=== PATIENT | male | born 1950 | race Caucasian/White ===

== ENCOUNTER 2017-05-19 22:37 | Inpatient (IN) | payer MEDICARE ==
[~2017-05-19] VITALS: Ht 177.8 cm; Wt 147.9 kg
[~2017-05-19 22:37] MED LIST: ACETAMINOPHEN325 M1 PO; AMBIEN 10 MG TA10 MG PO; AMBIEN 5 MG TABL5 M1 PO; ATROVENT HFA14 GM INH; AUGMENTIN 875-1 EACH PO; COUMADIN 3 MG TA3 M1 PO; COUMADIN 4 MG TA4 M1 PO; COUMADIN 5 MG TA5 M1 PO; DESYREL50 MG PO; DETROL LA4 MG PO; DOXYCYCLINE 10100 MG PO; DUONEB 2.5-0.5 M3 ML; FINASTERIDE5 MG PO; FLOMAX0.4 MG PO; GLUCAGEN1 MG IM; GLUCOPHAGE500 MG PO; GLUTOSE GEL 1515 G1 PO; HYDROXYZINE HCL25 M1 PO; KEFLEX500 MG PO; LASIX 20 MG TAB20 MG PO; LASIX 40 MG TAB40 M2 PO; LEVALBUTER1.25 MG/0. INH; LEVAQUIN 750 M750 MG PO; LIPITOR40 MG PO; LISINOPRIL40 MG PO; LOPRESSOR 50 MG50 M1 PO; LOPRESSOR25 PO; MORPHINE PO; MORPHINE SULFAT60 MG PO; MS CONTIN15 MG PO; MUCINEX TA600 MG/TA1 PO; MUCINEX TA600 MG/TA2 PO; OXYCODONE HCL10 MG PO; OXYCODONE HCL5 M1 PO; PACERONE 200 M200 MG PO; PERCOCET PO; PREDNISONE 10 M10 M1 PO; PREDNISONE 10 M10 MG PO; PREDNISONE 20 M20 MG; PRILOSEC 20 MG20 MG PO; PRINIVIL20 MG PO; SERTRALINE HCL100 MG PO; SIMVASTATIN20 MG PO; TAMSULOSIN HCL PO; TAMSULOSIN HCL0.4 M1 PO; TRAZODONE HCL100 MG PO; TROSPIUM CHLORI20 MG PO; VENTOLIN HFA 1818 GM INH; VENTOLIN HFA INH8 GM; XANAX 0.25 MG0.25 MG PO
[2017-05-19 22:40] VITALS: BP 100/37
[2017-05-19] MEDS ORDERED: IRON325 M1 (23:18)
[2017-05-19] MEDS ORDERED: COUMADIN 4 MG TA4 M1 PO (23:19)
[2017-05-19] MEDS ORDERED: COUMADIN 3 MG TA3 M1 PO (23:19)
[2017-05-19] MEDS ORDERED: COUMADIN 5 MG TA5 M1 PO (23:19)
[2017-05-19 23:35] LABS: HCO3 18.5 mmol/L (22.0-26.0); PO2 122.4 mmHg (75.0-100.0)
[2017-05-19 23:37] LABS: ABSOLUTE EOSINOPHILS 0.1 thou/uL (0.0-0.7); ABSOLUTE MONOCYTES 0.4 thou/uL (0.0-1.2); ABSOLUTE NEUTROPHILS 5.6 thou/uL (1.6-8.1); BASOPHILS 0.3 %; EOSINOPHILS 1.3 %; HEMATOCRIT 25.7 % (42.0-52.0); HEMOGLOBIN 8.2 gm/dL (14.0-18.0); LYMPHOCYTES 14.2 %; MCV 84.4 fL (80.0-100.0); MONOCYTES 5.1 %; MPV 7.4 fl. (7.2-11.1); NUCLEATED RBCS 0 /100WBC; PLATELET COUNT* 171 thou/uL (150-400); POLYS 79.1 %; RBC 3.04 mil/uL (4.50-6.00); RDW-CV 17.4 % (10.5-14.5); WBC 7.1 thou/uL (4.0-11.0)
[2017-05-19 23:42] LABS: pH 7.151 (7.340-7.450)
[2017-05-19 23:43] LABS: PCO2 54.1 mmHg (35.0-45.0)
[2017-05-20] VITALS (12 sets, daily range): BP systolic 93–133; BP diastolic 38–62
[2017-05-20 00:04] LABS: ANION GAP 7 mmol/L (7-16); BUN 118 mg/dL (7-18); CALCIUM 8.5 mg/dL (8.5-10.1); CHLORIDE 104 mmol/L (98-107); CO2 24 mmol/L (21-32); CREATININE 4.2 mg/dL (0.6-1.3); GLUCOSE 146 mg/dL (70-99); SODIUM 135 mmol/L (136-145)
[2017-05-20 00:05] LABS: PROTIME 19.2 Seconds (9.20-11.50)
[2017-05-20 00:11] LABS: POTASSIUM 7.5 mmol/L (3.5-5.1)
[2017-05-20 00:15] LABS: ALBUMIN 3.1 g/dL (3.4-5.0); ALKALINE PHOSPHATASE 71 U/L (46-116); LIPASE 127 U/L (73-393); NT-PRO BRAIN NAT PEPTIDE 1260 pg/mL (<300); SGOT 16 U/L (15-37); SGPT 16 U/L (30-65); TOTAL BILIRUBIN 0.1 mg/dL (<0.1-1.0); TOTAL PROTEIN 8.1 g/dL (6.4-8.2); TROPONIN-I LEVEL <0.06 ng/mL (<0.06)
[2017-05-20 01:14] LABS: URINE BILIRUBIN NEGATIVE (Negative); URINE BLOOD NEGATIVE (Negative); URINE CLARITY CLEAR; URINE COLOR YELLOW; URINE GLUCOSE-RANDOM NEGATIVE (Negative); URINE KETONES NEGATIVE (Negative); URINE LEUKOCYTES-REFLEX NEGATIVE (Negative); URINE NITRITE-REFLEX NEGATIVE (Negative); URINE PROTEIN NEGATIVE (Negative); URINE SPECIFIC GRAVITY 1.025 (1.005-1.030); URINE UROBILINOGEN 0.2 E.U./dl (0.2-1.0)
[2017-05-20 01:16] LABS: INFLUENZA A ANTIGEN None Detected (None Detect); INFLUENZA B ANTIGEN None Detected (None Detect)
[2017-05-20 07:55] LABS: ABSOLUTE LYMPHOCYTES 0.9 thou/uL (0.8-5.3); ABSOLUTE MONOCYTES 0.4 thou/uL (0.0-1.2); ABSOLUTE NEUTROPHILS 5.3 thou/uL (1.6-8.1); BASOPHILS 0.3 %; EOSINOPHILS 0.4 %; HEMATOCRIT 24.4 % (42.0-52.0); HEMOGLOBIN 7.8 gm/dL (14.0-18.0); LYMPHOCYTES 13.9 %; MCH 26.4 pg (26.0-34.0); MCHC 32.1 g/dL (28.0-37.0); MCV 82.2 fL (80.0-100.0); MONOCYTES 5.3 %; MPV 7.2 fl. (7.2-11.1); NUCLEATED RBCS 0 /100WBC; PLATELET COUNT* 163 thou/uL (150-400); POLYS 80.1 %; RBC 2.96 mil/uL (4.50-6.00); RDW-CV 17.2 % (10.5-14.5); WBC 6.6 thou/uL (4.0-11.0)
[2017-05-20 08:19] LABS: CREATININE 4.1 mg/dL (0.6-1.3); TOTAL BILIRUBIN 0.1 mg/dL (<0.1-1.0); TOTAL PROTEIN 7.1 g/dL (6.4-8.2)
[2017-05-20 08:42] LABS: POTASSIUM 6.2 mmol/L (3.5-5.1)
--- NOTE | 2017-05-20 11:24 | NUR ---
WOUND CARE NOTE: CONSULT RECEIVED FOR PRESSURE ULCER TO COCCYX. PATIENT PRESENTS WITH A STAGE 3 TO HIS SACROCOCCYGEAL REGION, ON THE RIGHT SIDE. WOUND MEASURES 4X2X0.3. MOIST, PINK WOUND BED TO APPROXIMATELY 80% OF THE WOUND 20% YELLOW, MOIST, ADHERENT SLOUGH. GURMEET-WOUND IS MACERATED. WOUND WAS CLEANSED WITH WOUND CLEANSER, PATTED DRY. APPLIED OPTIFOAM AG. PATIENT TOLERATED DRESSING CHANGE, BUT HAD A LOT OF PAIN ' ALL OVER'. ATTEMPTED TO EDUCATED PATIENT ON OFFLOADING AND NUTRITION, BUT WAS HAVING TOO MUCH PAIN IN HIS FEET/LEGS. WILL NEED REINFORCEMENT. RECOMMEND LIMIT HOB <30 DEGREES. TURN Q2 HOURS-KEEP OFF WOUND ENCOURAGE GOOD NUTRITION AND HYDRATION FOLLOW UP IN THE WOUND CENTER.
[2017-05-20 15:18] LABS: CALCIUM 7.7 mg/dL (8.5-10.1); CREATININE 3.1 mg/dL (0.6-1.3); POTASSIUM 5.4 mmol/L (3.5-5.1)
--- NOTE | 2017-05-20 17:36 | NUR ---
ASSUMED CARE OF PT AROUND 0710 THIS AM. REFER TO ASSESSMENTS. PT SOMEWHAT PROGRESSING TOWARDS GOALS THIS SHIFT. ID CONSULTED THIS SHIFT. HEMODYNAMIC STABILITY MONITORED. PT STARTED ON HOME MEDICATIONS FOR CHRONIC BACK PAIN THIS SHIFT. PT STARTED ON DOSES LOWER THAN HOME DOSE D/T DROWSINESS AND CONFUSION THIS AM. TELE SR. PT HAD RENAL US AND CHEST CT THIS SHIFT. REFER TO RESULTS. NO OTHER CONCERNS AT THIS TIME. CLWR. WCTM.
[2017-05-20 22:41] LABS: SMEAR FOR EOSINOPHILS No Eosinophils Seen
[2017-05-21] VITALS (8 sets, daily range): BP systolic 113–164; BP diastolic 38–86
--- NOTE | 2017-05-21 00:41 | NUR ---
REPORT GIVEN TO VIVIANA JACOBO. QUESTIONS DENIED.
[2017-05-21 02:07] LABS: IgA 385 mg/dL (61-437); IgG 1212 mg/dL (700-1600); IgM 80 mg/dL (20-172)
--- NOTE | 2017-05-21 02:58 | NUR ---
REPORT RECEIVED FROM VIVIANA JACOBO. ASSUMED CARE AT 0130. PATIENT TRANSFERRED TO ROOM 227 FROM ICU. ASSESSMENT COMPLETED. MEDS GIVEN PER MAR. ORIENTED TO ROOM, CALL LIGHT, STAFF, AND BED CONTROLS. TURNED AND REPOSITIONED IN BED WITH WEDGES. BED ALARM ON. WILL MONITOR.
--- NOTE | 2017-05-21 06:54 | NUR ---
ATTEMPTED TO CALL TO NOTIFY OF TRANSFER, NO ANSWER. WILL PASS ON TO DAY, RN.
--- NOTE | 2017-05-21 08:05 | CON ---
[address] [address] CONSULTATION Name: DOMINIQUE WEISS Room: [address] IN .R.#: [id number] Admission: 05/20/17 Attend Phys: Amy Kerr Discharge: Date of : 48 Report #: [id number] THIS REPORT FOR: //name// CC: Octavio Estrada DATE OF SERVICE: 05/20/2017 INFECTIOUS DISEASE CONSULTATION ATTENDING PHYSICIAN: Teodoro Estrada DO REASON FOR EVALUATION: Pneumonitis, complicated by respiratory and renal failure. HISTORY OF PRESENT ILLNESS: Chart reviewed, the patient examined. This is a 66-year-old known history of COPD who I saw roughly 11 months ago, was admitted through the Emergency Room with complaints of progressive shortness of breath, dating back a few days prior, had weakness, it again is progressive as well, poor appetite with cough, has not had fever, had 1 episode of diarrhea. It is notable he is typically on the oxygen supplement at home at 3 liters. He is maintained saturation on that same level here. ABG showed a pH of 7.151, pCO2 of 54.1 and pO2 of 122.4 on 4 liters. Lactic acid was 0.8. CT of the chest showed right pleural effusion, large area of consolidation in the right middle and lower lobes. He has been afebrile. He was started empirically on piperacillin and tazobactam. ALLERGIES: None known. MEDICINES: Include atorvastatin, trazodone, warfarin, amiodarone, finasteride, sertraline, pantoprazole, Zosyn. PAST MEDICAL AND SURGICAL HISTORY: Hypertension, high cholesterol, depression, atrial fibrillation, COPD, several orthopedic surgeries. SOCIAL HISTORY: Nonsmoker, no ethanol. FAMILY HISTORY: Noncontributory. REVIEW OF SYSTEMS: As above. PHYSICAL EXAMINATION: GENERAL: He appears chronically ill with acute component moderate distress. He is undernourished. VITAL SIGNS: Temperature 98.4, pulse 89, respirations 13, blood pressure 133/53[place] [address] CONSULTATION Name: DOMINIQUE WEISS Room: [address] IN [facility]#: [id number] Admission: 05/20/17 Attend Phys: Amy Kerr Discharge: Date of : 48 Report #: [id number] SKIN: Warm, dry, no rashes. HEENT: Otherwise, unremarkable. NECK: Supple. LUNGS: Scattered coarse breath sounds. HEART: Regular. He does have systolic murmur. ABDOMEN: Soft, mildly distended. There are no peritoneal signs. GENITOURINARY: Deferred. RECTAL: Deferred. LABORATORY DATA: CT chest as described above. Electrolytes: Sodium 142, potassium 5.4, chloride 107, bicarbonate 25, anion gap of 10, BUN and creatinine 100 and 3.1, glucose of 145. Estimated GFR of 20. Lactic acid bump to 3.3, but repeat was 0.8. Liver function tests otherwise unremarkable. Albumin 3, total protein 7.1, estimated GFR of 15. CBC: White count of 6.6, H and H 7.8 and 24.4, platelets of 163. Influenza antigen was not detected for A or B. Urinalysis unremarkable. ASSESSMENT: Right-sided pneumonitis. The patient certainly has compromise underlying chronic obstructive pulmonary disease. We will continue broad spectrum therapy adjusted for his renal insufficiency. We will await pending results to try to obtain sputum if possible, check some urinary antigen. <ELECTRONICALLY SIGNED> By: Nicola Mosley MD 05/21/17 0805 [id number] [id number] Mosley MD /nt
[2017-05-21 08:25] LABS: ABSOLUTE EOSINOPHILS 0.1 thou/uL (0.0-0.7); ABSOLUTE LYMPHOCYTES 1.3 thou/uL (0.8-5.3); ABSOLUTE MONOCYTES 0.4 thou/uL (0.0-1.2); ABSOLUTE NEUTROPHILS 2.6 thou/uL (1.6-8.1); EOSINOPHILS 1.7 %; HEMATOCRIT 21.8 % (42.0-52.0); HEMOGLOBIN 7.2 gm/dL (14.0-18.0); LYMPHOCYTES 29.8 %; MCH 26.7 pg (26.0-34.0); MPV 7.1 fl. (7.2-11.1); NUCLEATED RBCS 0 /100WBC; PLATELET COUNT* 140 thou/uL (150-400); POLYS 58.5 %; RBC 2.69 mil/uL (4.50-6.00); RDW-CV 17.1 % (10.5-14.5); WBC 4.4 thou/uL (4.0-11.0)
[2017-05-21 08:31] LABS: CALCIUM 7.9 mg/dL (8.5-10.1); MAGNESIUM 1.6 mg/dL (1.8-2.4); POTASSIUM 4.4 mmol/L (3.5-5.1)
[2017-05-21 08:32] LABS: CREATININE 1.9 mg/dL (0.6-1.3)
[2017-05-21 08:36] LABS: INR 2.7; PROTIME 25.9 Seconds (9.20-11.50)
--- NOTE | 2017-05-21 11:00 | CON ---
[address] [address] CONSULTATION Name: DOMINIQUE WEISS Room: [address] IN .R.#: [id number] Admission: 05/20/17 Attend Phys: Amy Kerr Discharge: Date of : 48 Report #: [id number] THIS REPORT FOR: //name// CC: Octavio Estrada The patient is in ICU bed 6. I am asked to see this 66-year-old gentleman at the request of Dr. Estrada for acute kidney injury. CHIEF COMPLAINT: Confusion. HISTORY OF PRESENT ILLNESS: This is a 66-year-old gentleman who has had respiratory symptoms for a week or so. He said he saw Dr. Casanova in the office about a week ago and his meds were changed. Despite that, he has worsened over the last week and has become more short of air. He presented early this a.m. with worsening lethargy, confusion, weakness and shortness of air. He has a history of staph pneumonia in the past, he says he has had multiple shots to prevent the flu, he has had muscle spasms, he has had low back pain, which he rates at 7/10. He does not recall all the meds that he has been on over the past week, but states he has been on some. He was found to be acidotic and in acute renal failure and was admitted to the intensive care unit with his respiratory symptoms and metabolic picture. PAST MEDICAL HISTORY: Atrial fib with rapid ventricular response. He has had episodic CHF. 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 He has had acute kidney injury in the past, I believe back in June of last year and recovered from that. He has had a fracture of his right leg with hugh and screws placed in 1998. He has had episodic blood transfusions as needed through the years. He has had COPD, obesity, and BPH. His baseline renal function has been in the mid ones. FAMILY HISTORY: Positive for coronary artery disease, not renal disease. SOCIAL HISTORY: , history of tobacco in the past, he quit about a year ago. No alcohol or recreational drugs. ALLERGIES: No known drug allergies. MEDICATIONS: His chronic medications have been albuterol 1 puff q.4, tamsulosin 0.4 mg daily, ferrous sulfate 325 mg daily, warfarin 3 mg daily, alternating with 5 mg, but this is per directives he takes either 3, 4, or 5 depending on what he is told to take; he is on amiodarone 200 mg daily, atorvastatin 40 mg daily, metoprolol 25 mg b.i.d., lisinopril 20 mg daily, oxycodone/acetaminophen 5/325 two daily, MS Contin 30 mg t.i.d., acetaminophen 325 mg tablets 2 q.4 [place] [address] CONSULTATION Name: DOMINIQUE WEISS Room: [address] IN ..#: [id number] Admission: 05/20/17 Attend Phys: Amy Kerr Discharge: Date of : 48 Report #: [id number] p.r.n., sertraline 100 mg daily, trazodone 100 mg daily, hydroxyzine 25 mg b.i.d. for anxiety, zolpidem 5 mg at bedtime, furosemide 40 mg b.i.d., and trospium 20 mg b.i.d. REVIEW OF SYSTEMS: HEENT: No recent changes in vision or hearing. CARDIAC: Atrial fib with episodic elevated ventricular response. PULMONARY: Shortness of air, this is dated back a week. GASTROINTESTINAL: Chronic constipation. No nausea, vomiting, or diarrhea at present. GENITOURINARY: Acute kidney injury. He has had this in the past as well in June. HEMATOLOGIC AND LYMPHATIC: No malignancy. He is anemic. MUSCULOSKELETAL: Weakness. ENDOCRINE: Not known to be diabetic. No hypothyroidism. PSYCHIATRIC: Depression. NEUROLOGIC: History of meningitis in the past with some hearing deficits and some weakness following this, this was as a child. No Parkinson's disease, seizure disorder, CVA or TIA. Other 14-point review of systems as above. PHYSICAL EXAMINATION: GENERAL: He does awaken easily, he is a bit confused still. VITAL SIGNS: Temperature is 37, heart rate is 76, respirations 18, blood pressure 114/44, and O2 sat 96% on room air. HEENT: Atraumatic, normocephalic. His pupils do react. NECK: Supple. CHEST: Shows crackles, worse on the right than the left. He also has some expiratory wheezes. HEART: Shows S1, S2, no rubs. ABDOMEN: Soft, positive bowel sounds. No masses. EXTREMITIES: Show no edema. Negative Homans', 2+ femoral pulses, distal extremities perfused. NEUROLOGIC: Cranial nerves, sensory, and motor all appear to be at baseline, but he is confused. LABORATORY DATA: At present shows a white count of 6600, hemoglobin 7.8, hematocrit 24.4, and platelets 163,000. PT 19.2 and INR 2. Urine is negative for protein, ketones, blood, nitrites, and bilirubin. Blood gas showed a pH of 7.15, pCO2 of 54, and pO2 122. Chemistry show a sodium of 140, potassium 6.2, chloride 105, CO2 of 21, BUN 118, potassium 4.1, and calcium 8. Liver functions not increased, albumin 3. His potassium started at 7.5. IMAGING STUDIES: Include a chest x-ray that showed increasing right lobe [place]elect[place] [address] CONSULTATION Name: DOMINIQUE WEISS Room: [address] IN [facility]#: [id number] Admission: 05/20/17 Attend Phys: Amy Kerr Discharge: Date of : 48 Report #: [id number] IMPRESSION: 1. Acute kidney injury in the setting of a right lower lobe pneumonia, possible sepsis and hypotension. 2. Right lower lobe infiltrate and pneumonia. 3. Hypotension, possible sepsis. 4. Metabolic and respiratory acidosis. 5. Acute on chronic hypercapnic hypoxic respiratory failure. 6. Hyperkalemia in the setting of acidosis and acute kidney injury. 7. Effective circulating volume depletion. 8. Chronic pain and opiate use. 9. Toxic encephalopathy. 10. Anemia. 11. History of atrial fibrillation, on anticoagulation. 12. History of spinal meningitis as a child. 13. Chronic obstructive pulmonary disease. PLAN: Continue fluid resuscitation. Treat potassiums. We will check lab again this afternoon. I am hopeful he can avoid dialysis. We will need evaluation of his anemia as he improves. Further recommendations to follow. We will also check serum protein electrophoresis, immunoelectrophoresis, and urine for eosinophils. He will likewise require a bedside renal sonogram. Orders are written. <ELECTRONICALLY SIGNED> By: Sylvia Lora MD 05/21/17 1100 1221 [id number] Lora MD /nt
--- NOTE | 2017-05-21 13:45 | 2DMMODE ---
[place] [address] 2 D/M-MODE ECHOCARDIOGRAM Name: DOMINIQUE WEISS Room: [facility]1 ADM IN [facility]#: [id number] Admission: 05/20/17 Attend Phys: Teodoro Estrada Discharge: Date of : 48 Date of Service: 05/21/17 1344 Report #: [id number] THIS REPORT FOR: //name// APPROVED REPORT Study performed: 05/21/2017 10:49:24 EXAM: Comprehensive 2D, Doppler, and color-flow Echocardiogram Patient Location: In-Patient Room #: [facility] Status: routine BSA: 2.47 HR: 83 bpm BP: 119/49 mmHg Rhythm: NSR Other Information Technically limited study due to body habitus, inability to position patient. Indications Dyspnea Echo Enhancing Agent Indication: Endocardial border delineation Agent(s) / Amount(s) Used: Optison 3 cc 2D Dimensions LVEF(%): 49.91 (>50%) IVSd: 12.21 (7-11mm) LVOT Diam: 22.59 (18-24mm) LVDd: 50.19 mm PWd: 10.83 (7-11mm) Ascending Ao: 34.59 (22-36mm) LVDs: 37.43 (25-40mm) Aortic Root: 35.75 mm Campbell's LVEF: 49.91 % Aortic Valve AoV Peak Moises.: 2.66 m/s AO Peak Gr.: 28.40 mmHg LVOT Max P.62 mmHg AO Mean Gr.: 15.68 mmHg LVOT Mean P.41 mmHg LVOT Max V: 0.81 m/s AO V2 VTI: 57.86 cm LVOT Mean V: 0.55 m/s ROYAL (VTI): 1.20 cm2 LVOT V1 VTI: 17.32 [place] [address] 2 D/M-MODE ECHOCARDIOGRAM Name: DOMINIQUE WEISS Room: [address] IN [facility].#: [id number] Admission: 05/20/17 Attend Phys: Teodoro Estrada Discharge: Date of : 48 Date of Service: 05/21/17 1344 Report #: [id number] PV Peak Moises.: 1.12 m/s PV Peak Gr.: 5.06 mmHg Left Ventricle The left ventricle is normal size. There is normal LV segmental wall motion. There is normal left ventricular wall thickness. Left ventricular systolic function is normal. The left ventricular ejection fraction is within the normal range. LVEF is 55-60%. The left ventricular diastolic function is normal. Right Ventricle The right ventricle is normal size. The right ventricular systolic function is normal. Atria The left atrium size is normal. The right atrium size is normal. Aortic Valve Mild aortic valve sclerosis. No aortic regurgitation is present. No hemodynamically significant valvular aortic stenosis. Mitral Valve Mild mitral annular calcification. There is no mitral valve regurgitation noted. No evidence of mitral valve stenosis. Tricuspid Valve The tricuspid valve is normal in structure. Unable to assess PA pressure. Trace tricuspid regurgitation. Pulmonic Valve The pulmonary valve is normal in structure. There is no pulmonic valvular regurgitation. Great Vessels The aortic root is normal in size. IVC is normal in size and collapses with >50% inspiration Pericardium There is no pericardial effusion. <Conclusion> The left ventricle is normal size. There is normal left ventricular wall thickness. Left ventricular systolic function is normal. The left ventricular ejection fraction is within [place] [address] 2 D/M-MODE ECHOCARDIOGRAM Name: DOMINIQUE WEISS Room: [address] IN [facility]#: [id number] Admission: 05/20/17 Attend Phys: Teodoro Estrada Discharge: Date of : 48 Date of Service: 05/21/17 1344 Report #: [id number] LVEF is 55-60%. The right ventricle is normal size. The left atrium size is normal. Mild aortic valve sclerosis. No aortic regurgitation is present. No hemodynamically significant valvular aortic stenosis. Mild mitral annular calcification. There is no mitral valve regurgitation noted. There is no mitral valve regurgitation noted. No evidence of mitral valve stenosis. The tricuspid valve is normal in structure. IVC is normal in size and collapses with >50% inspiration There is no pericardial effusion. There is normal LV segmental wall motion. <ELECTRONICALLY SIGNED> By: Luis Ellis MD, FACC 05/21/17 1344 1344 1344 Luis Ellis MD, FACC /INF
--- NOTE | 2017-05-21 14:05 | EKG ---
[place] [address] ELECTROCARDIOGRAM REPORT Name: DOMINIQUE WEISS Room: [place] [address] ADM IN .R.#: [id number] Admission: 05/20/17 Attend Phys: Amy Kerr Discharge: Date of : 48 Report #: [id number] THIS REPORT FOR: //name// [facility] ED Test Date: 2017-05-19 Test Time: 23:15:38 Pat Name: DOMINIQUE WEISS Department: Room: [facility] Gender: Technical Photographer: JODEE Oakley : 1950 Requested By: Kobe Koroma Order Number: [id number] MD: Luis Ellis Measurements Intervals [place] Rate: 70 P: NC: QRS: -36 QRSD: 127 T: 26 QT: 431 QTc: 466 Interpretive Statements Atrial fibrillation Baseline wander in lead(s) II,III,aVF possible inferior scar Electronically Signed On 05-21-2017 14:05:11 LINE UP WORKER by Luis Ellis [email or web address] <ELECTRONICALLY SIGNED> By: Luis Ellis MD, [facility] 05/21/17 1405 [id number] Luis Ellis MD, FACC /EPI
--- NOTE | 2017-05-21 14:07 | NUR ---
CM SPOKE TO THE PATIENT TO DISCUSS HOME SITUATION, DISCHARGE PLANNING, AND TO INFORM OF THE ROLE OF CM. PATIENT ALERT, ORIENTED, AND INDEPENDENT WITH ADL'S. PATIENT RESIDES AT HOME WITH , DTR, AND GRANDDAUGHTER. PATIENT USES A TRILOGY AT HOME. PATIENT ALSO USES A WALKER OR CANE FOR MOBILITY. PATIENT HAS A HX OF HH, BUT COULD NOT RECALL THE NAME. PATIENT HAS NO HX OF SNF. PATIENT PLANS TO RETURN HOME AT DISCHARGE. CM WILL REMAIN AVAILABLE TO ASSIST AND FOLLOW NEEDED.
[2017-05-21 14:36] LABS: INR 2.5; PROTIME 24.4 Seconds (9.20-11.50)
[2017-05-21 16:31] LABS: INR 2.6
--- NOTE | 2017-05-21 19:33 | NUR ---
PT PARTIALLY PROGRESSING TOWARDS GOALS. UP IN THE RECLINER THIS AFTERNOON. POOR APPETITE THIS SHIFT. TRANSFERS WITH ASSIST X1. LARGE BOWEL MOVEMENT THIS SHIFT. PLANNING FOR US GUIDED THORACENTESIS TOMORROW IF INR DECREASES. PLANS FOR FFP AND INR DRAWS OVERNIGHT UNTIL INR <1.5. PATIENT UP TO DATE WITH PLAN OF CARE. DISCUSSED PLAN OF CARE WITH PATIENTS DAUGHTER N LAW WELL. CONTINUES TO WEAR O2 AT 3L NC AND BIPAP HS. CALL LIGHT WITHIN REACH. HOURLY ROUNDING CHARTED. CALL LIGHT WITHIN REACH. WILL CONTINUE TO MONITOR.
[2017-05-22] VITALS (9 sets, daily range): BP systolic 157–190; BP diastolic 52–82
[2017-05-22 01:14] LABS: INR 2.3; PROTIME 22.1 Seconds (9.20-11.50)
--- NOTE | 2017-05-22 04:54 | NUR ---
ASSUMED CARE AT 2030, REPORT RECEIVED FROM VIVIANA NIXON. PATIENT ALERT/ORIENTED X4, SITTING UP IN RECLINER. UP WITH ASSIST. VOIDING PER URINAL. STATES HAVING PAIN ALL OVER, SCHEDULED MEDS PER MAR. DENIES NEEDS. ASSISTED BACK TO BED, REPOSITIONED Q2H WITH WEDGES. REFUSING SCD'S. BED ALARM ON. CALL LIGHT WITHIN REACH, ENCOURAGED TO CALL FOR NEEDS. 2315: UNIT ONE OF FFP STARTED PER ORDERS. SEE CHARTING INTERVENTION FOR DETAILS. 0000: PATIENT STATES BEING ANXIOUS AT THIS TIME AND STATES THAT HIS LEGS ARE RESTLESS. DR. QUEZADA NOTIFIED, ORDERS RECEIVED FOR BENADRYL. IV BENADRYL GIVEN PER MAR WITH RELIEF NOTED. 0100: PATIENT RESTING QUIETLY AT THIS TIME. DENIES NEEDS.
[2017-05-22 05:08] LABS: HEMATOCRIT 21.1 % (42.0-52.0); MCH 26.6 pg (26.0-34.0); MCHC 32.9 g/dL (28.0-37.0); MCV 80.8 fL (80.0-100.0); RBC 2.62 mil/uL (4.50-6.00); WBC 4.5 thou/uL (4.0-11.0)
[2017-05-22 05:11] LABS: INR 1.9; PROTIME 17.9 Seconds (9.20-11.50)
[2017-05-22 05:17] LABS: CALCIUM 8.7 mg/dL (8.5-10.1); CREATININE 1.4 mg/dL (0.6-1.3); MAGNESIUM 1.4 mg/dL (1.8-2.4); POTASSIUM 3.7 mmol/L (3.5-5.1)
--- NOTE | 2017-05-22 07:57 | NUR ---
CALLED LAB, STATES NEXT UNIT OF FFP NOT READY BUT STATES WILL CALL THE FLOOR WHEN IT IS. BEDIDE REPORT GIVEN TO ONCOMING NURSE.
[2017-05-22 10:43] LABS: INR 1.5; PROTIME 14.5 Seconds (9.20-11.50)
--- NOTE | 2017-05-22 12:34 | NUR ---
RECEIVED PT CARE 0700. PT IS ALERT AND ORIENTED X4. VSS. LOADING MACHINE TOOL SETTER TRACING SR. PT UP IN THE RECLINER THIS AM WITH ASSIST X1. O2 AT 3L NC. O2 SAT 98% ON 3L NC. SHORT OF BREATH WITH ANY EXERTION. AM ASSESSMENT CHARTED. MEDS PER JUL. UP TO BEDSIDE COMMODE FOR LARGE BOWEL MOVEMENT THIS AM. INR AT GOAL FOR US THORACENTESIS TO BE DONE TODAY. FFP WAS SUCCESSFUL. NOTIFIED DR WRIGHT AND DISCUSSED THE PLAN OF CARE. PATIENT CURRENTLY UP IN HIS RECLINER. PLAN TO TRANSFUSE 1 UNIT RBC'S.
--- NOTE | 2017-05-22 16:50 | NUR ---
DISCUSSED PLAN WITH DR WRIGHT. IR PHYSICIAN RECOMMENDING SURGERY PLACE CHEST TUBE. NEW SURGERY CONSULT ORDERS RECEIVED PER DR THOMAS. THIS RN DISCUSSED WITH THE SURGERY RESIDENT THE PATIENT CONCERNS AND THEIR REASON FOR BEING CONSULTED. NO NEW ORDERS PER SURGERY AT THAT TIME. PULMONARY CONSULTED AND THIS RN DISCUSSED THE PLAN OF CARE WITH DR MCKNIGHT. PULM RECOMMENDING THE PATIENT NEEDS THORACENTESIS OR CHEST TUBE AT THIS TIME BUT DID NOT CLARIFY WHICH PROCEDURE WAS OF MORE IMPORTANCE. PULMONARY STATED THIS RN NEEDED TO SPEAK WITH SURGERY AND HAVE THEM TALK TO INTERVENTIONAL RADIOLOGY ABOUT WHO WAS GOING TO DO WHAT PROCEDURE. THIS RN REINFORCED TO DR WRIGHT THAT PATIENT RECEIVED MULTIPLE UNITS OF FFP ALL NIGHT LONG WITH REPETITIVE LAB DRAWS FOR HIS INR TO REACH A GOAL OF 1.5 TO HAVE A THORACENTESIS TODAY. DISCUSSED WITH DR WRIGHT ABOUT PROCEEDING FURTHER WITH THIS PATIENTS PLAN OF CARE. FIRE CHIEF'S AIDE NOTIFIED ABOUT THIS PATIENT AND HIS NEED FOR THORACENTESIS VS CHEST TUBE. PHYSICIANS WERE EVENTUALLY ABLE TO DISCUSS AMONGST THEMSELVES THE PLAN OF CARE FOR THIS PATIENT. RECEIVED NO ORDERS FOR ANY PROCEDURE TODAY 05/22/17. PATIENT STATED, "IM GOING TO HAVE A PROCEDURE ON WEDNESDAY' WHEN PATIENT WAS ASKED WHICH PROCEDURE HE WAS GOING TO HAVE ON WEDNESDAY, PATIENT STATED, 'THEY DON'T KNOW'. EDUCATED PATIENT AND REASSURED PATIENT THAT HE WAS GOING TO TAKEN CARE OF. RBC'S IFNUSED COMPLETELY. PATIENT VERY ANXIOUS, CANNOT SIT STILL. ROCKS BACK AND FORTH IN HIS RECLINER AND SHAKES HIS LEGS CONTINUOUSLY. PRN MEDICATION GIVEN WITH PARTIAL RELIEF. KYLE IS AWARE OF THE PATIENTS ANXIETY AT THIS TIME. NEW ORDERS TO CHECK ABG'S. WHEN RESULTED, WILL NOTIFY DR WRIGHT.
[2017-05-22 17:26] LABS: BE -0.1 mmol/L (-2 to +3); HCO3 23.5 mmol/L (22.0-26.0); PCO2 33.7 mmHg (35.0-45.0); PO2 72.5 mmHg (75.0-100.0); pH 7.461 (7.340-7.450)
--- NOTE | 2017-05-22 18:03 | NUR ---
PT NOT PROGRESSING TOWARDS GOALS. PT MORE ANXIOUS THIS AFTERNOON. PATIENT UPSET HE DID NOT HAVE ANY PROCEDURE TODAY. PT IS SHORT OF BREATH SITTING IN RECLINER. DOES NOT TOLERATE ACTIVITY. O2 AT 3L NC. ENCOURAGING PATIENT TO WEAR HIS BIPAP WHEN HE IS ASLEEP. REPLACED MAGNESIUM PER RENAL'S RECOMMENDATION. PATIETNS FAMILY UPDATED ON PLAN OF CARE. CALL LIGHT WITHIN REACH. WILL CONTINUE TO MONITOR.
--- NOTE | 2017-05-22 22:52 | NUR ---
RESTING IN BED. CONT. IVF, TOOK PO MEDS WITHOUT DIFFICULTIES. CONT A FIB ON MONITOR. ASSIST WITH ADLS DUE TO BLINDNESS. ALERT AND ORIENTED TO SURROUNDINGS. DENIES COMPLAINTS OF PAIN OR DISCOMFORT. NO SIGN OF DISTRESS. BED IN LOW POSITION, CALL LIGHT WITHIN REACH. BED ALARM ON. CONT. WITH PLAN OF CARE.
--- NOTE | 2017-05-22 23:07 | NUR ---
PATIENT RESTING IN BED. COMPLAINTS OF ANXIETY BUT UNABLE TO GIVE ATIVAN TIL 0000. GAVE HS MEDS WITH INCLUDED MS CONTIN, TRAZDONE. EXPLAINED THAT WILL GIVE ATIVAN. NO SIGN OF DISTRESS. IN BED WITH CPAP ON, BED IN LOW POSITION, ALARM ON. CALL LIGHT WITHIN REACH. CONT. WITH PLAN OF CARE.
[2017-05-23] VITALS: BP 174/75
[2017-05-23 04:48] VITALS: BP 170/77
[2017-05-23 04:54] LABS: INR 1.3; PROTIME 12.2 Seconds (9.20-11.50)
[2017-05-23 04:57] LABS: ABSOLUTE LYMPHOCYTES 0.9 thou/uL (0.8-5.3); ABSOLUTE MONOCYTES 0.7 thou/uL (0.0-1.2); ABSOLUTE NEUTROPHILS 5.6 thou/uL (1.6-8.1); BASOPHILS 0.1 %; EOSINOPHILS 0.1 %; HEMATOCRIT 24.2 % (42.0-52.0); HEMOGLOBIN 8.4 gm/dL (14.0-18.0); LYMPHOCYTES 12.3 %; MCH 27.9 pg (26.0-34.0); MCHC 34.8 g/dL (28.0-37.0); MCV 80.1 fL (80.0-100.0); MONOCYTES 9.2 %; MPV 7.5 fl. (7.2-11.1); NUCLEATED RBCS 0 /100WBC; PLATELET COUNT* 158 thou/uL (150-400); POLYS 78.3 %; RBC 3.02 mil/uL (4.50-6.00); RDW-CV 16.4 % (10.5-14.5); WBC 7.2 thou/uL (4.0-11.0)
[2017-05-23 05:04] LABS: CALCIUM 8.6 mg/dL (8.5-10.1); CREATININE 1.5 mg/dL (0.6-1.3); POTASSIUM 3.3 mmol/L (3.5-5.1)
--- NOTE | 2017-05-23 06:41 | NUR ---
AT 0300 A CARIZEM DRIP WAS STARTED PER DR WRIGHT FOR TACHYCARDIA WITH HR OF 160, PATIENT HAS NOT RESPONDED HEART RATE STILL JUMPING TO 155. CARDIZEM RUNNING AT 20MG PER HOUR. COMMUNITY COORDINATOR AWARE WELL CHARGE NURSE, AWAITING CALL BACK FROM CARDIOLOGY.
--- NOTE | 2017-05-23 07:45 | NUR ---
SPOKE WITH DR. LOMAX VIA PHONE FOR RECONSULT. SBAR GIVEN AND INFORMED PT. ON AMIODARONE 200MG DAILY AND CURRENTLY ON CARDIZEM GTT AT 10. PER DR. LOMAX CONTINUE WITH BOTH MEDS AT THIS TIME AND WILL ASSESS WHEN HERE.
[2017-05-23 08:45] VITALS: BP 140/63
--- NOTE | 2017-05-23 08:45 | NUR ---
ASSUMED PT. CARE AND RECEIVED REPORT AT 0730. PT. UP IN RECLINER, VSS, MONITOR ON TRACING AFIB WITH RATES BETWEEN 80-100. PT. C/O CHRONIC PAIN IN BACK. ON 3L NC @ 100%. FULL ASSESSMENT COMPLETED, REFER TO CHARTING. PT. STATES HE DID NOT SLEEP LAST NIGHT, DOES APPEAR SLEEPY THIS MORNING, FALLING ASLEEP DURING CONVERSATIONS. CARDIZEM GTT INFUSING AT 10ML/HR. PT. EXHIBITING SMALL JERKING MOVEMENTS IN LEGS, ARMS WHILE SLEEPING. CALL LIGHT IN REACH, WILL CONTINUE WITH PLAN OF CARE.
--- NOTE | 2017-05-23 11:56 | NUR ---
DR LOMAX ON UNIT, STATES WILL KEEP CARDIZEM GTT GOING FOR TODAY, REASSESS TOMORROW.
[2017-05-23 13:20] VITALS: BP 138/80
[2017-05-23 14:27] LABS: CALCIUM 8.8 mg/dL (8.5-10.1); CREATININE 1.3 mg/dL (0.6-1.3); MAGNESIUM 1.4 mg/dL (1.8-2.4); POTASSIUM 3.2 mmol/L (3.5-5.1)
[2017-05-23 16:30] VITALS: BP 128/83
[2017-05-23 18:11] LABS: PHOSPHORUS* 1.9 mg/dL (2.5-4.9); POTASSIUM 3.1 mmol/L (3.5-5.1)
--- NOTE | 2017-05-23 19:42 | NUR ---
PT. VISUALLY APPEARS BETTER THIS AFTERNOON. CONTINUES ON CARDIZEM GTT, TOLERATING WELL. TREATED FOR PAIN X 2, AND ANXIETY X2 WITH ATIVAN. PT. WAS ABLE TO REST THIS MORNING IN RECLINER. PT. PARTICIPATED IN GETTING BATHED AND CLEANED DENTURES. PT. REQUESTING AMBIEN (HOME MED) BE REORDERED, DR. WRIGHT NOTIFIED. HOURLY ROUNDING COMPLETED THROUGH OUT THE DAY FOR PT. SAFETY. FAMILY AT BEDSIDE CURRENTLY.
[2017-05-23 20:00] VITALS: BP 120/72
[2017-05-24] VITALS: BP 122/58
--- NOTE | 2017-05-24 01:17 | NUR ---
RESTING THUR FAR INTO SHIFT. CONT. ABX WITHOUT ADVERSE REACTION NOTED. CONT. CARDIZEM DRIP AT 10MG/10ML PER HOUR. UP WITH SBA ASSIST TO COMMODE. REQUESTION TO SLEEP IN CHAIR. NO SIGN OF DISTRESS. CONT. WITH PLAN OF CARE.
[2017-05-24 04:12] VITALS: BP 125/69
[2017-05-24 04:56] LABS: HEMOGLOBIN 7.3 gm/dL (14.0-18.0)
[2017-05-24 04:59] LABS: HEMATOCRIT 22.3 % (42.0-52.0); MCHC 32.9 g/dL (28.0-37.0); MPV 8.1 fl. (7.2-11.1); RBC 2.71 mil/uL (4.50-6.00); RDW-CV 16.2 % (10.5-14.5); WBC 10.1 thou/uL (4.0-11.0)
[2017-05-24 05:10] LABS: INR 1.1; PROTIME 10.9 Seconds (9.20-11.50)
[2017-05-24 05:12] LABS: ALBUMIN 2.8 g/dL (3.4-5.0); CALCIUM 8.3 mg/dL (8.5-10.1); CREATININE 1.3 mg/dL (0.6-1.3); MAGNESIUM 1.5 mg/dL (1.8-2.4); POTASSIUM 3.4 mmol/L (3.5-5.1); TOTAL BILIRUBIN 0.4 mg/dL (<0.1-1.0); TOTAL PROTEIN 6.9 g/dL (6.4-8.2)
[2017-05-24 07:05] LABS: GLOBULIN TOTAL 3.6 g/dL (2.2-3.9); M-SPIKE Not Observed g/dL (Not Observed)
--- NOTE | 2017-05-24 07:20 | NUR ---
CHANGE OF SHIFT, BEDSIDE REPORT PATIENT SEEN IN ROOM IN RECLINER, ASLEEP
[2017-05-24 08:00] VITALS: BP 146/109
[2017-05-24 12:03] VITALS: BP 138/111
[2017-05-24 12:35] LABS: SOURCE RIGHT THORACENTESIS
[2017-05-24 12:41] LABS: BF RBC 2605 /mm3; TOTAL CELL COUNT 241 /mm3
[2017-05-24 13:06] LABS: TOTAL VOLUME 560 ml
[2017-05-24 13:07] LABS: CLARITY HAZY; COLOR AMBER
[2017-05-24 13:20] LABS: BF LYMPHOCYTES 99 %; BF POLYS 1 %; BF TISSUE 20 /100 WBC
[2017-05-24 13:51] LABS: SOURCE THORACENTESIS
[2017-05-24 16:23] VITALS: BP 143/65
--- NOTE | 2017-05-24 19:05 | NUR ---
patient remains a and o x 4 afib/st 110s-120s lungs dim o2 at 3l nc o2 sats high 90s good appetite no bm today last bm t-1 good uo approximately 500cc d. yellow uo uses urinal up with 1 assist ref scds remained in recliner most of day bottom coccyx area with wound optifoam drsg in place wound reported under drsg not seen iv 20 ga l fs sl c/o back pain today treated with oxcotin oral prn and also takes mscontin scheduled abn labs k+ 3.4, mag 1.5, hgb 7.3, replaced k+ and mag replaced today and recheck at 2130 per [facility] call light in reach and instruction given and followed thoracentesis r lobe completed today 560cc off patient ref ct due ti back pain
[2017-05-24 20:00] VITALS: BP 140/75
[2017-05-24 21:45] LABS: MAGNESIUM 1.6 mg/dL (1.8-2.4)
[2017-05-25] VITALS: BP 152/92
--- NOTE | 2017-05-25 01:02 | NUR ---
CARDIOLOGY CARDIAC EXERCISE PHYSIOLOGIST GAVE ORDER FOR .5 OF DIG, FOLLOW THAT WITH .25 IN 2 HOURS IV NOW. 1ST ATTEMPT DOSING IV INFILTRATED. NEW IV PLACED IN RT HAND. .5 MG OF DIG GIVEN. WILL GIVE .25 AT 0300.
--- NOTE | 2017-05-25 02:27 | NUR ---
RESTING IN RECLINER. CONT. TO REQUIRE PAIN MEDS. IV DIG HAS HR BELOW 100. .25 DOSE ORDERED AND TO BE GIVEN AT 0300. PATIENT CONT. 02 NC AT 3 LITERS. REFUSES BIPAP BECAUSE INSIST ON SLEEPING IN RECLINER. NO SIGNS OF DISTRESS OR DISCOMFORT. CONT. WITH CURRENT PLAN OF CARE AT THIS TIME.
[2017-05-25 03:00] VITALS: BP 151/48
[2017-05-25 05:01] LABS: INR 1.1; PROTIME 10.9 Seconds (9.20-11.50)
--- NOTE | 2017-05-25 07:15 | NUR ---
CHANGE OF SHIFT, BEDSIDE REPORT GIVEN ASSUMED PATIENT CARE PATIENT SEEN AT BEDSIDE, UP IN RECLINER, ASLEEP
[2017-05-25 08:00] VITALS: BP 140/45
--- NOTE | 2017-05-25 11:19 | CON ---
[address] [address] CONSULTATION Name: DOMINIQUE WEISS Room: [address] IN .R.#: [id number] Admission: 05/20/17 Attend Phys: Amy Kerr Discharge: Date of : 48 Report #: [id number] THIS REPORT FOR: //name// CC: Octavio Estrada DATE OF SERVICE: 05/23/2017 Consult has been requested by Dr. Lucas. INDICATION FOR CONSULTATION: Pleural effusion/possible empyema with mass-like infiltrates. HISTORY OF PRESENT ILLNESS: A 66-year-old gentleman whose past medical history includes a history of Trilogy and oxygen dependent COPD. The patient's baseline creatinine is normal at 1.2. He is not on long-term prednisone therapy. The patient is on Coumadin long-term, however, for atrial fibrillation. The patient reports that he was recently treated to our office with a prednisone taper as well as an antibiotic. He, however, states that he did not feel better after this and continued to remain short of breath and therefore on 05/20/2017, he eventually was admitted to this hospital. The patient at that time was reporting increasing shortness of breath, was coughing, was having worsening lethargy and also initially was reported to have been confused. Definite information regarding whether the patient had a fever at home was not available. The patient did have muscle spasms as well. On his lab work, the patient was found to be in acute renal failure. His creatinine has elevated to 4.2, note that his baseline is 1.2. He also had a markedly elevated potassium level at 7.5. Further, the patient had metabolic as well as respiratory acidosis as well. The Renal and Infectious Disease services were consulted. The patient was treated with fluids as well as bicarbonate. He also received Kayexalate. He also had a CT chest performed. He is currently on cefazolin ordered by the Infectious Disease Service. The patient's CT did show a significant right-sided pleural effusion. There are also mass-like infiltrates present. At this point, the patient says that he is feeling better. He is on his baseline 3 L oxygen. His kidney function is returning towards baseline. The patient's INR has been reversed and it is 1.3 as of today. The plan is to proceed with thoracentesis tomorrow. The patient does have some joint pains, which remain at baseline. He at this time does not have upper respiratory complaints. He does have swelling of lower extremities. He does complain of back pain as well. He has sleep disturbances [place] [address] CONSULTATION Name: DOMINIQUE WEISS Room: [address] IN M.R.#: [id number] Admission: 05/20/17 Attend Phys: Amy Kerr Discharge: Date of : 48 Report #: [id number] REVIEW OF SYSTEMS: He answered to the negative for 12 questions for review of systems except as mentioned above. PAST MEDICAL HISTORY: He does have a history of COPD on oxygen, on Trilogy, not on long-term prednisone. He is anticoagulated with Coumadin long-term for atrial fibrillation. Also, hypertension, hyperlipidemia, depression, several orthopedic surgeries, obstructive sleep apnea by clinical history. Pérez shunt. The patient's last available echocardiogram was only done recently and shows a left ventricular ejection fraction of 55%-60% without elevation in right heart pressures. SOCIAL HISTORY: The patient does have a history of smoking. The patient now tells me that he has not smoked since the mid . There is conflicting information regarding this; however, he had previously documented to have told other physicians that he stopped smoking 1 year ago, there was also a question as to whether he was continuing to smoke now, but when I ask him, he says he discontinued in the mid . No known history of heavy alcohol use or illegal drug use. FAMILY HISTORY: Coronary artery disease. CURRENT MEDICATIONS: List in [employer], reviewed. HOME MEDICATIONS: Also, list in [employer], reviewed. PHYSICAL EXAMINATION: GENERAL: He is alert, awake and oriented, does not appear to be in any distress at this time. VITAL SIGNS: He has a pulse of 85 and a blood pressure of 140/63. He is saturating in the mid 90s on 3 L nasal cannula, which is his baseline. His respiratory rate is 18. He is afebrile with a temperature of 36.6. HEENT: Head is normocephalic, atraumatic. Pupils are equal and reactive. There is no throat erythema. NECK: Does not show raised JVP, asymmetry, mass or lymph nodes. CHEST: Breath sounds decreased at the right lung base. HEART: Irregular, no murmur. ABDOMEN: Mildly distended, nontender. EXTREMITIES: Lower extremities do show 2+ edema. There is no calf tenderness. SKIN: Dry and intact. NEUROLOGICAL: Moves all extremities bilaterally equally and spontaneously. There is no focal deficit identified. LABORATORY DATA: The patient's CT chest performed on the as well as the last chest x-ray is reviewed and compared with [place] [address] CONSULTATION Name: DOMINIQUE WEISS Room: [address] IN [facility]#: [id number] Admission: 05/20/17 Attend Phys: Amy Kerr Discharge: Date of : 48 Report #: [id number] patient's lab work is also in [employer] and is reviewed. ASSESSMENT AND PLAN: 1. Right-sided pleural effusion with mass-like infiltrates/atelectasis: I agree with planned thoracentesis tomorrow. Note that, the patient had his INR reversed already. We will plan to do a CT chest without contrast tomorrow after the thoracentesis and then see where we stand. Suggest not restarting long-reacting anticoagulants subsequent to the thoracentesis pending further evaluation with a CT chest tomorrow regarding whether further invasive procedures would be needed. The patient is currently on cefazolin, which is being managed by the ID service. 2. Llwxw-lo-rrzgkvt hypercarbic respiratory failure: He is on nebulized bronchodilators and Trilogy as well as oxygen. He is not currently on steroids. I did not make a change at this time. 3. Acute renal failure with hyperkalemia and now hypokalemia: I will give him one dose of potassium and then recheck. His potassium will need to be kept in a very narrow range. 4. Atrial fibrillation: The patient is noted to be on a Cardizem infusion at this time. He has also been ordered Lasix. These medications are being managed by the Cardiology service. Thanks for this consultation. <ELECTRONICALLY SIGNED> By: Rebecca Dorman MD 05/25/17 1119 [id number] [id number] Haro MD /nt
[2017-05-25 11:38] VITALS: BP 118/55
--- NOTE | 2017-05-25 13:19 | CNG ---
[address] [address] CYTO-NONGYN REPORT PROCEDURE Name: STEVENSON BOLIVAR Room: [address] IN R.#: [id number] Admission: 05/20/17 Date of : 48 Discharge: Report #: [id number] Path Case #: [id number] CYTOPATHOLOGY REPORT COLLECTION DATE: 05/24/2017 RECEIVED DATE: 05/24/2017 SUBMITTING PHYS: Dr. Redd Bautista OTHER PHYS: Dr. Kobe Hernandez CLINICAL HISTORY: Dehydration, acidosis, renal failure, hyperkalemia SPECIMEN(S) RECEIVED: A.Pleural fluid, Right * * * * * * * * * * * * FINAL DIAGNOSIS: A. Pleural fluid, Right: - No malignant cells identified. -Paucicellular specimen consisting of rare mesothelial cells and inflammatory cells. PATHOLOGIST: Cleve Powell M.D. REPORT ELECTRONICALLY SIGNED BY: Cleve Powell M.D. DATE/TIME: 05/25/2017 13:03 * * * * * * * * * * * * GROSS PATHOLOGY: A. Pleural fluid, Right lung: The specimen is submitted fixed, labeled "Stevenson Bolivar". Received by the Cytology Department is 35 mL of cloudy nicholas fluid. One ThinPrep slide and an alcohol fixed cell block were prepared. (lg1.8.2017) [employer] MANUFACTURING OPERATOR(S): YOSEF Martinez([facility]) INITIAL CPT CODE(S): A; 59544, 51057 Professional services performed by [facility] at [facility], [address] [place] [address] , [place] [address]. Technical services performed by [facility] at [address] [place] [address]., [address], [place] [address]. [facility] [address] [place] [address], [address] [place] [address] PHONE: [phone] [address] CYTO-NONGYN REPORT PROCEDURE Name: STEVENSON BOLIVAR Room: [place] [address] ADM IN .R.#: [id number] Admission: 05/20/17 Date of : 48 Discharge: Report #: [id number] Path Case #: [id number] DIRECTOR: Aaron Hector M.D. * * * END OF REPORT * * *
[2017-05-25 14:09] LABS: BODY FLUID AMYLASE 8 U/L (()); BODY FLUID LDH 209 IU/L (()); BODY FLUID PROTEIN 2.9 g/dL (())
[2017-05-25 15:52] VITALS: BP 139/49
--- NOTE | 2017-05-25 19:30 | NUR ---
PATIENT REMAINS A AND X 4 AFIB, RATES 80S LUNGS DIM/COARSE/RA O2 SATS MID 90S GOOD APPETITE LAST BM T-1 GOOD UO-400 CC DARK YELLOW URINE UP WITH 1 ASSIST TO CHAIR OPTIFOAM DRSG ON COCCYX IV 20 GA L FA UP IN RECLINER UP WITH ONE ASSIST CALL LIGHT IN REACH AND INSTRUCTION GIVEN AND FOLLOWED MAG 1.6, REPLACED AND RECHECKING ON NIGHTS PER BRIANA PINK C/O BACK PAIN TREATED AND RELIEVED WITH OXCODONE 5MG-2 ORAL PRN AND
[2017-05-25 20:25] VITALS: BP 139/55
[2017-05-26] VITALS: BP 149/70
[2017-05-26 04:00] VITALS: BP 134/69
[2017-05-26 05:22] LABS: INR 1.1; PROTIME 10.6 Seconds (9.20-11.50)
--- NOTE | 2017-05-26 06:43 | NUR ---
Pt reports he slept well until "they woke me up to draw labs." Pt given pain med and lorazepam this morning per request (both orders prn). States pain in back (which is chronic) rating 10/10. Returned later to reassess pain and pt appears to be asleep in recliner. Pt had unformed BM last pm. VSS, HR controlled. Will continue to monitor.
--- NOTE | 2017-05-26 07:15 | NUR ---
CHANGE OF SHIFT, BEDSIDE REPORT GIVEN ASSUMED PATIENT CARE PATIENT SEEN AT BEDSIDE IN RECLINER, ASLEEP
[2017-05-26 08:00] VITALS: BP 141/57
[2017-05-26 12:00] VITALS: BP 122/60
[2017-05-26 16:00] VITALS: BP 144/51
--- NOTE | 2017-05-26 18:13 | NUR ---
patient remains a and o x 4 afib 2l nc good appetite bm today goos uo dark yellow per urinal up with 1 assist sits up recliner iv 20 ga l fa sl c/o pain back treated and relieved prn and sched po call light in reach and instruction given and followed thoracentesis done 460cc off restarted coumadin today ct of chest done
[2017-05-26 20:30] VITALS: BP 134/69
[2017-05-27] VITALS: BP 119/66
[2017-05-27 04:00] VITALS: BP 101/81
[2017-05-27 05:44] LABS: HEMATOCRIT 22.8 % (42.0-52.0); HEMOGLOBIN 7.5 gm/dL (14.0-18.0); MCH 26.8 pg (26.0-34.0); MCV 81.4 fL (80.0-100.0); MPV 7.1 fl. (7.2-11.1); RBC 2.8 mil/uL (4.50-6.00); RDW-CV 16.4 % (10.5-14.5); WBC 5.4 thou/uL (4.0-11.0)
[2017-05-27 05:50] LABS: INR 1.1; PROTIME 10.4 Seconds (9.20-11.50)
[2017-05-27 06:00] LABS: CALCIUM 8.5 mg/dL (8.5-10.1); MAGNESIUM 1.6 mg/dL (1.8-2.4); POTASSIUM 3.4 mmol/L (3.5-5.1)
--- NOTE | 2017-05-27 07:01 | NUR ---
Pt reports he slept well overnight. In recliner for entire shift. Medicated for c/o generalized pain per pt request twice during shift. Mg++ 1.6, K+ 3.4 this am. Will replace per protocol and recheck afterward. VSS. Will continue to monitor.
[2017-05-27 08:30] VITALS: BP 141/51
--- NOTE | 2017-05-27 10:48 | CNG ---
[address] [address] CYTO-NONGYN REPORT PROCEDURE Name: STEVENSON BOLIVAR Room: [address] IN .R.#: [id number] Admission: 05/20/17 Date of : 48 Discharge: Report #: [id number] Path Case #: [id number] CYTOPATHOLOGY REPORT COLLECTION DATE: 05/26/2017 RECEIVED DATE: 05/26/2017 SUBMITTING PHYS: Dr. Rebecca Dorman OTHER PHYS: Dr. Fernanda Estrada CLINICAL HISTORY: Dehydration, renal failure, acidosis, Hyperkalemia SPECIMEN(S) RECEIVED: A.Pleural fluid, Left * * * * * * * * * * * * FINAL DIAGNOSIS: A. Pleural fluid, Left: - No malignant cells identified. -Paucicellular specimen consisting of few lymphocytes; mesothelial cells are not identified. PATHOLOGIST: Cleve Powell M.D. REPORT ELECTRONICALLY SIGNED BY: Cleve Powell M.D. DATE/TIME: 05/27/2017 10:46 * * * * * * * * * * * * GROSS PATHOLOGY: A. Pleural fluid, Left: The specimen is submitted fixed, labeled "Stevenson Bolivar". Received by the Cytology Department is 45 mL of cloudy orange fluid. One ThinPrep slide and a formalin fixed cell block were prepared. (mm 05.26.2017) DRUM WORKER(S): YOSEF Martinez([facility]) INITIAL CPT CODE(S): A; 05434, 60182 Professional services performed by [facility], [address], [place] [address]. Technical services performed by [facility] at [address] [place] [address], [address], [place] [address]. [facility], [address] [place] [address] PHONE: [phone] DIRECTOR: Aaron Hector M.D. * * * END OF REPORT * * *
[2017-05-27] MEDS ORDERED: CEFDINIR300 MG PO (11:39)
[2017-05-27 12:00] VITALS: BP 140/69
[2017-05-27] MEDS ORDERED: IRON325 PO (13:33)
[2017-05-27 14:03] VITALS: BP 140/69
--- NOTE | 2017-05-27 14:45 | NUR ---
DC ORDERS RECEIVED. IV AND MONITOR REMOVED. PT. AND SPOUSE GIVEN DC INSTRUCTIONS, SCRIPTS AND CARENOTES. ALL QUESTIONS ANSWERED. PT. INSTRUCTED TO FOLLOW UP WITH DR. HONG IN [address] CALLEJAS IN 1 WEEK, WITH FOLLOW UP CT IN 1 MONTH. PT. LEFT WITH SPOUSE TO RETURN HOME IN PERSONAL VEHICLE, ALL BELONGINGS ACCOUNTED FOR.
[2017-05-27 17:09] LABS: BODY FLUID PH 7.5 (Not Estab.)
== END 2017-05-27 14:37 | disposition home or self-care (01) | DRG 871 ==
LOC: M.ERS 22:37 → M.2W 05-20 00:36 → M.TBA-ER 05-20 00:36 → M.ICU 05-20 00:36 → M.2W 05-21 00:37
PROVIDERS: Emergency Medicine; Family Medicine; Internal Medicine; Internal Medicine Critical Care Medicine; Internal Medicine Infectious Disease; Internal Medicine Nephrology; ADMIT Internal Medicine
PROC: 30233M1 Transfusion of Nonautologous Plasma Cryoprecipitate into Peripheral Vein, Percutaneous Approach (ICD-10-PCS; principal; 2017-05-21)
PROC: 30233N1 Transfusion of Nonautologous Red Blood Cells into Peripheral Vein, Percutaneous Approach (ICD-10-PCS; 2017-05-22)
PROC: 0W993ZZ Drainage of Right Pleural Cavity, Percutaneous Approach (ICD-10-PCS; 2017-05-24)
PROC: 0W993ZZ Drainage of Right Pleural Cavity, Percutaneous Approach (ICD-10-PCS; 2017-05-26)
DX: A41.9 Sepsis, unspecified organism (principal); J96.21 Acute and chronic respiratory failure with hypoxia; J96.22 Acute and chronic respiratory failure with hypercapnia; N17.0 Acute kidney failure with tubular necrosis; G92 Toxic encephalopathy; J86.9 Pyothorax without fistula; J16.8 Pneumonia due to other specified infectious organisms; E87.2 Acidosis; J44.0 Chronic obstructive pulmonary disease with (acute) lower respiratory infection; J90 Pleural effusion, not elsewhere classified; I13.0 Hypertensive heart and chronic kidney disease with heart failure and stage 1 through stage 4 chronic kidney disease, or unspecified chronic kidney disease; I50.32 Chronic diastolic (congestive) heart failure; E87.0 Hyperosmolality and hypernatremia; J44.1 Chronic obstructive pulmonary disease with (acute) exacerbation; Z68.42 Body mass index [BMI] 45.0-49.9, adult; R65.20 Severe sepsis without septic shock; E78.00 Pure hypercholesterolemia, unspecified; H91.91 Unspecified hearing loss, right ear; E86.0 Dehydration; E87.5 Hyperkalemia; E78.5 Hyperlipidemia, unspecified; E66.9 Obesity, unspecified; N40.0 Benign prostatic hyperplasia without lower urinary tract symptoms; E83.42 Hypomagnesemia; I48.0 Paroxysmal atrial fibrillation; E11.22 Type 2 diabetes mellitus with diabetic chronic kidney disease; D64.9 Anemia, unspecified; N18.9 Chronic kidney disease, unspecified; F32.9 Major depressive disorder, single episode, unspecified; G47.33 Obstructive sleep apnea (adult) (pediatric); E87.6 Hypokalemia; G89.29 Other chronic pain; I95.9 Hypotension, unspecified; Z99.81 Dependence on supplemental oxygen; Z79.899 Other long term (current) drug therapy; Z79.01 Long term (current) use of anticoagulants; Z82.49 Family history of ischemic heart disease and other diseases of the circulatory system; Z87.891 Personal history of nicotine dependence; Z79.891 Long term (current) use of opiate analgesic

== ENCOUNTER → 2017-07-21 | Outpatient (CLI) | payer MEDICARE ==
[~2017-07-21] MED LIST changes: +AMOXICILLIN 50500 MG PO; +CEFDINIR300 MG PO; +CEFUROXIME250 MG PO; +COLACE100 MG PO; +IRON325 M1; +IRON325 PO; +OMEPRAZOLE20 M2 PO; +OXYCODONE HCL 55 MG PO; +PROBIOTIC1 EAC1 PO
[2017-07-21 15:17] LABS: ABSOLUTE BASOPHILS 0.1 thou/uL (0.0-0.2); ABSOLUTE EOSINOPHILS 0.2 thou/uL (0.0-0.7); ABSOLUTE LYMPHOCYTES 1.2 thou/uL (0.8-5.3); ABSOLUTE MONOCYTES 0.5 thou/uL (0.0-1.2); ABSOLUTE NEUTROPHILS 3.3 thou/uL (1.6-8.1); BASOPHILS 1.1 %; EOSINOPHILS 3.2 %; HEMATOCRIT 27.7 % (42.0-52.0); HEMOGLOBIN 8.8 gm/dL (14.0-18.0); LYMPHOCYTES 23.7 %; MCH 25.4 pg (26.0-34.0); MCHC 31.8 g/dL (28.0-37.0); MCV 79.7 fL (80.0-100.0); MPV 6.3 fl. (7.2-11.1); NUCLEATED RBCS 0 /100WBC; PLATELET COUNT* 215 thou/uL (150-400); RBC 3.48 mil/uL (4.50-6.00); RDW-CV 16.9 % (10.5-14.5); WBC 5.3 thou/uL (4.0-11.0)
== END ==
LOC: M.LAB 14:49
PROVIDERS: Nurse Practitioner
DX: I48.91 Unspecified atrial fibrillation (principal); D64.9 Anemia, unspecified; Z79.899 Other long term (current) drug therapy

== ENCOUNTER 2017-08-30 17:17 | Inpatient (IN) | payer MEDICARE ==
[~2017-08-30] VITALS: Ht 180.3 cm; Wt 129.7 kg
[~2017-08-30 17:17] MED LIST changes: -AMOXICILLIN 50500 MG PO; -CEFUROXIME250 MG PO; -COLACE100 MG PO; -OMEPRAZOLE20 M2 PO; -OXYCODONE HCL 55 MG PO; -PROBIOTIC1 EAC1 PO
[2017-08-30 17:19] VITALS: BP 115/56
[2017-08-30] MEDS ORDERED: OMEPRAZOLE20 M2 PO (17:28)
[2017-08-30 17:39] LABS: NUCLEATED RBCS 0 /100WBC
[2017-08-30 17:47] LABS: ANION GAP 10 mmol/L (7-16); BUN 133 mg/dL (7-18); CALCIUM 8.6 mg/dL (8.5-10.1); CHLORIDE 102 mmol/L (98-107); CO2 25 mmol/L (21-32); CREATININE 4.8 mg/dL (0.6-1.3); GLUCOSE 158 mg/dL (70-99); SODIUM 137 mmol/L (136-145)
[2017-08-30 17:48] LABS: ABSOLUTE EOSINOPHILS 0.1 thou/uL (0.0-0.7); ABSOLUTE LYMPHOCYTES 0.7 thou/uL (0.8-5.3); ABSOLUTE MONOCYTES 0.5 thou/uL (0.0-1.2); ABSOLUTE NEUTROPHILS 5.4 thou/uL (1.6-8.1); BASOPHILS 0.3 %; HEMATOCRIT 28.2 % (42.0-52.0); LYMPHOCYTES 10.4 %; MCH 25.3 pg (26.0-34.0); MCV 79.2 fL (80.0-100.0); MONOCYTES 7.3 %; PLATELET COUNT* 188 thou/uL (150-400); RBC 3.56 mil/uL (4.50-6.00); RDW-CV 16.9 % (10.5-14.5); WBC 6.6 thou/uL (4.0-11.0)
[2017-08-30 17:55] LABS: POTASSIUM 6.3 mmol/L (3.5-5.1)
[2017-08-30 17:57] LABS: ALKALINE PHOSPHATASE 85 U/L (46-116); INR 3.4; MAGNESIUM 1.7 mg/dL (1.8-2.4); NT-PRO BRAIN NAT PEPTIDE 3231 pg/mL (<300); PROTIME 32.1 Seconds (9.20-11.50); SGOT 34 U/L (15-37); SGPT 21 U/L (30-65); TOTAL BILIRUBIN 0.2 mg/dL (<0.1-1.0); TOTAL PROTEIN 8.3 g/dL (6.4-8.2); TROPONIN-I LEVEL <0.06 ng/mL (<0.06)
[2017-08-30 18:31] LABS: BE -7.5 mmol/L (-2 to +3); HCO3 20.2 mmol/L (22.0-26.0); PO2 77.2 mmHg (75.0-100.0)
[2017-08-30 19:18] LABS: URINE BILIRUBIN NEGATIVE (Negative); URINE BLOOD 1+ (Negative); URINE CLARITY CLEAR; URINE COLOR YELLOW; URINE GLUCOSE-RANDOM NEGATIVE (Negative); URINE KETONES NEGATIVE (Negative); URINE LEUKOCYTES-REFLEX NEGATIVE (Negative); URINE NITRITE-REFLEX NEGATIVE (Negative); URINE PROTEIN TRACE (Negative); URINE UROBILINOGEN 0.2 E.U./dl (0.2-1.0)
[2017-08-30 19:34] LABS: BACTERIA-REFLEX None Seen /HPF (None Seen); CASTS None Seen /LPF (None Seen); CRYSTALS None Seen /LPF (None Seen); SQUAMOUS 4-10 Moderate /LPF (0-3); URINE RBC 0-2 Rare /HPF (0-2); URINE WBC-REFLEX None Seen /HPF (0-5)
[2017-08-30 19:52] LABS: PCO2 52.1 mmHg (35.0-45.0); pH 7.207 (7.340-7.450)
[2017-08-30 20:19] LABS: URINE POTASSIUM-RANDOM 25.1 mmol/L
[2017-08-30 20:34] VITALS: BP 126/53
[2017-08-30 20:57] VITALS: BP 122/74
[2017-08-31] VITALS (9 sets, daily range): BP systolic 112–140; BP diastolic 40–48
--- NOTE | 2017-08-31 02:55 | NUR ---
RECIEVED REPORT FROM ER AROUND 2029 AND PT ARRIVED IN ROOM AROUND 2044. ASSESSMENT COMPLETED CHARTED. C/O PAIN GENERALIZED, HAS TWO BOTTOM SORES THAT WERE PHOTOGRAPHED, COVERED WITH BARRIER CREAM AND WOUND CARE NURSE CONSULTED. PT IS DROWSY AND HAS TREMORS. PT WEARING TRILOGY AT NIGHT. PT ON BEDREST AT THIS TIME, Q2 HOUR TURNS, AND ABLE TO MAKE NEEDS KNOWN. CALL LIGHT WITHIN REACH, SOME TEACHING GIVEN TO FAMILY AND PT. WILL CONTINUE WITH PLAN OF CARE.
[2017-08-31 05:22] LABS: HEMATOCRIT 27.2 % (42.0-52.0); HEMOGLOBIN 8.6 gm/dL (14.0-18.0); MCH 24.9 pg (26.0-34.0); MCHC 31.7 g/dL (28.0-37.0); MCV 78.6 fL (80.0-100.0); MPV 6.9 fl. (7.2-11.1); RBC 3.46 mil/uL (4.50-6.00); RDW-CV 17.4 % (10.5-14.5); WBC 5.3 thou/uL (4.0-11.0)
[2017-08-31 05:33] LABS: INR 3.4; PROTIME 32.5 Seconds (9.20-11.50)
[2017-08-31 05:56] LABS: CALCIUM 7.9 mg/dL (8.5-10.1); CREATININE 3.7 mg/dL (0.6-1.3); MAGNESIUM 1.7 mg/dL (1.8-2.4); POTASSIUM 4.8 mmol/L (3.5-5.1)
--- NOTE | 2017-08-31 09:29 | NUR ---
ASSUMED CARE OF PATIENT AFTER REPORT THIS MORNING. PATIENT AWAKE, ALERT, AND ORIENTED APPROPRIATELY. PHYSICAL ASSESSMENT COMPLETED AND CHARTED. COMPLAINED OF GENERALIZED PAIN. RATED 9/10. GIVEN SCHEDULED MEDICATION FOR PAIN AT 0600. REASSURED. VITAL SIGNS STABLE. OXYGEN SATURATION WITHIN NORMAL LIMITS ON 4 LPM PER NASAL CANULA. PATIENT IS TO TRANSFER AND AMBULATE WITH ASSISTANCE FROM STAFF. USES CALL LIGHT APPROPRIATELY. DENIES NEEDS AT THIS TIME. CALL LIGHT WITHIN REACH. NURSING WILL CONTINUE TO MONITOR.
[2017-08-31 10:37] LABS: BE -5.1 mmol/L (-2 to +3); HCO3 21.8 mmol/L (22.0-26.0); PCO2 48.7 mmHg (35.0-45.0)
[2017-08-31 10:38] LABS: pH 7.268 (7.340-7.450)
[2017-08-31 10:39] LABS: PO2 133.5 mmHg (75.0-100.0)
--- NOTE | 2017-08-31 13:42 | NUR ---
CM SPOKE TO THE PATIENT TO DISCUSS HOME SITUATION, DISCHARGE PLANNING, AND TO INFORM OF THE ROLE OF CM. PATIENT ALERT AND ORIENTED. PATIENT RESIDES AT HOME WITH SPOUSE, AND SHE IS ABLE TO ASSIST THE PATIENT WITH CARES NEEDED. PATIENT'S DOES ALL COOKING, CLEANING, AND DRIVING. PATIENT OWNS A WALKER, CANE, AND WHEELCHAIR, BUT MOSTLY USES HIS CANE FOR MOBILITY. PATIENT USES A TRILOGY PROVIDED BY [facility]. PATIENT HAS A HX OF , BUT COULD NOT RECALL THE NAME. PATIENT HAS NO HX OF SNF. PATIENT PLANS TO RETURN HOME AT D/C. CM WILL REMAIN AVIALABLE TO ASSIST AND FOLLOW NEEDED.
--- NOTE | 2017-08-31 14:02 | EKG ---
[place] [address] ELECTROCARDIOGRAM REPORT Name: DOMINIQUE WEISS Room: [address] ADM IN M.R.#: [id number] Admission: 08/30/17 Attend Phys: Salvador Hernandez MD Discharge: Date of : 48 Report #: [id number] THIS REPORT FOR: //name// [facility] ED Test Date: 2017-08-30 Test Time: 17:17:28 Pat Name: DOMINIQUE WEISS Department: Room: [facility] Gender: M Roof Shingler: Adin MUIR : 1950 Requested By: Brigette Barksdale Order Number: [id number] MD: Porfirio Colbert Measurements Intervals [place] Rate: 93 P: 0 OK: 59 QRS: -26 QRSD: 113 T: 41 QT: 376 QTc: 468 Interpretive Statements Sinus rhythm Short OK interval Baseline artifact noted Low voltage, precordial leads Abnormal R-wave progression, late transition Compared to ECG 05/19/2017 23:15:38 Short OK interval now present Low QRS voltage now present Atrial fibrillation no longer present Electronically Signed On 08-31-2017 14:02:15 CDT by Porfirio Colbert [email or web address] <ELECTRONICALLY SIGNED> By: Porfirio Colbert MD, FACC 08/31/17 1402 1717 171 Porfirio Colbert MD, FAC /EPI
--- NOTE | 2017-08-31 15:24 | NUR ---
WOUND NURSE: WENT TO SEE PATIENT X2, BUT HE WAS OFF UNIT FOR TEST. PLAN TO RESCHEDULE FOR WOUND NURSE TO SEE TOMORROW.
--- NOTE | 2017-08-31 17:20 | NUR ---
NO CHANGE IN PATIENT STATUS. REMAINS ALERT AND ORIENTED APPROPRIATELY. COMPLETED A RENAL US TODAY. TRANSFERS AND AMBULATES WITH ASSIST FROM ONE STAFF MEMBER. USES CALL LIGHT APPROPRIATELY. USING URINAL APPROPRIATELY AT BEDSIDE. RECEIVED ORDER FOR NYSTATIN POWDER TO APPLY TO FOLDS, SEE EMAR FOR DOCUMENTATION. OXYGEN SATURATION REMAINS WITHIN NORMAL LIMITS ON 2 LPM PER NASAL CANULA. DENIES NEEDS AT THIS TIME. CALL LIGHT WITHIN REACH. NURSING WILL CONTINUE TO MONITOR.
--- NOTE | 2017-09-01 02:12 | NUR ---
ASSUMED PT CARE AT 19:45 PT IS ALERT AWAKE ORIENTD X 4. VITAL SIGNS WITHIN NORAML LIMIT COMPLAIN OF GENERALIZED PAIN LEVEL OF 9. MORPHINE WAS GIVEN ORDERED. PT STILL HAD PAIN LEVEL OF 9 AT AROUND MIDNIGHT , SO PERCOCET WAS ADM ORDERED. PT SATURATION IS 98 ON 2 L NC. ACCUCHECK 161 NO INSULIN GIVEN. HE DOES NOT WANT TO LAY IN BED PREFER TO SLLEP IN RECLINER CHAIR. PERICRE PROVIDED. AND NYASTATIN POWDER APPLIED IN FOLDS AREA. SINUS RYHTM ON THE MONITOR. CURRENTLY SLEEPIN IN RECLYNER WITH CIPAP ON.
[2017-09-01 04:22] VITALS: BP 105/33
[2017-09-01 05:43] LABS: HEMOGLOBIN 7.5 gm/dL (14.0-18.0); MCH 25.4 pg (26.0-34.0); MCHC 32.5 g/dL (28.0-37.0); MPV 6.6 fl. (7.2-11.1); RBC 2.95 mil/uL (4.50-6.00); RDW-CV 17.5 % (10.5-14.5); WBC 4.9 thou/uL (4.0-11.0)
[2017-09-01 05:54] LABS: INR 3.2; PROTIME 30.9 Seconds (9.20-11.50)
[2017-09-01 06:41] LABS: ALBUMIN 2.6 g/dL (3.4-5.0); CALCIUM 8.1 mg/dL (8.5-10.1); MAGNESIUM 1.7 mg/dL (1.8-2.4); POTASSIUM 4.7 mmol/L (3.5-5.1); TOTAL BILIRUBIN 0.3 mg/dL (<0.1-1.0); TOTAL PROTEIN 6.8 g/dL (6.4-8.2)
[2017-09-01 06:43] LABS: CREATININE 2.2 mg/dL (0.6-1.3)
[2017-09-01 10:13] VITALS: BP 125/40
--- NOTE | 2017-09-01 11:24 | NUR ---
WOUND CARE NOTE: CONSULT RECEIVED FOR 2 BOTTOM WOUNDS. PATIENT PRESENTS WITH 2 STAGE 2 PRESSURE ULCERS. RIGHT BUTTOCK: STAGE 2 PRESSURE ULCER MEASURING 4.5X2.5X0.1, MOIST RED WOUND BED. DRAINING SMALL AMOUNTS OF SEROUS DRAINAGE. GURMEET-WOUND DISCOLORED. LEFT UPPER THIGH, POSTERIOR: STAGE 2 PRESSURE ULCER MEASURING 3.5X1X0.1. MOIST, RED WOUND BED. DRAINING SMALL AMOUNTS OF SEROUS DRAINAGE. GURMEET-WOUND DISCOLORED. EDUCATED PATIENT ON KEEPING OFF AREA AND TURNING SIDE TO SIDE, PATIENT COMMUNICATED UNDERSTANDING AND STATES HE TRIES TO DO SO. EDUCATED PATIENT ON DRESSING SELECTION, COMMUNICATED UNDERSTANDING. EDUCATED PATIENT ON GETTING HIM AN OFFLOADING CUSHION FOR CHAIR, COMMUNICATED UNDERSTANDING. RECOMMEND KEEP OFF WOUNDS WAFFLE CUSHION IF PATIENT MUST BE IN CHAIR ENCOURAGE GOOD NUTRITION AND HYDRATION FOR WOUND HEALING Z-GUARD BARRIER OINTMENT BID AND PRN INCONTINENCE WOUND CENTER FOLLOW UP ON DISCHARGE
[2017-09-01 11:41] VITALS: BP 110/37
--- NOTE | 2017-09-01 13:37 | NUR ---
I HAVE REVIEWED THE STUDENT'S CHARTING.
[2017-09-01 15:23] VITALS: BP 104/30
[2017-09-01 20:45] VITALS: BP 129/42
[2017-09-02] VITALS (7 sets, daily range): BP systolic 115–146; BP diastolic 36–73
--- NOTE | 2017-09-02 04:48 | NUR ---
pt currently resting comfortable in bed. pt has been on cpap majority of the night. sr on monitor. pt required dose of pain meds for breakthrough pain control.
[2017-09-02 05:24] LABS: HEMOGLOBIN 8.1 gm/dL (14.0-18.0)
[2017-09-02 05:27] LABS: INR 2.1; PROTIME 20.3 Seconds (9.20-11.50)
[2017-09-02 05:43] LABS: ALBUMIN 2.7 g/dL (3.4-5.0); CALCIUM 8.5 mg/dL (8.5-10.1); CREATININE 1.4 mg/dL (0.6-1.3); MAGNESIUM 1.7 mg/dL (1.8-2.4); PHOSPHORUS* 2.6 mg/dL (2.5-4.9); POTASSIUM 4.4 mmol/L (3.5-5.1)
--- NOTE | 2017-09-02 07:45 | NUR ---
ASSUMED CARE OF PT ASSESSED AND DOCUMENTED. PT IS ON CARDIAC MONITER TRACING SR 1ST DEGREE PVC HR 67. VSS WNL. PT IS AFEBRILE. PT IS A&O AND C/O ALL OVER GENERALIZED PAIN RATED A 9 ON PAIN SCALE. PT HAS SCHEDULED PAIN MED WELL PRN MEDS. PT HAS 2 OPEN AREAS ON BOTTOM. EDUCATED PT ON TURN & REPOSITIONING WELL ON PAIN MANAGEMENT. PT IS ON FALL RISK PER FACILITY PROTOCOL. BED IS IN LOW POSITION CALL LIGHT IS IN REACH. WM.
--- NOTE | 2017-09-02 16:54 | NUR ---
PT HAS RESTED IN ROOM IN BEDSIDE CHAIR. USED WEDGE TO REPOSITION PT WHILE IN CHAIR. EDUCATION GIVEN ON DEMAND. PT HAS C/O PAIN AND ANXIETY. HE STATES PAIN NEVER GOES AWAY.
[2017-09-03] VITALS (7 sets, daily range): BP systolic 122–156; BP diastolic 38–83
--- NOTE | 2017-09-03 01:53 | NUR ---
PT ALERT ORIENTED. PT CALLED OUT AT START OF SHIFT AND SAID HIS IV WAS OUT. HOUSE SUP MIGUEL NOTIFIED FOR DIFFICULT IV STICK. IV PLACED IN R INDEX FINGER. SCHEDULED MORPHINE 30MG AND OXYCONTIN GIVEN WITH HYDROXAZINE AND MELATONIN FOR PAIN AND SLEEP. PT SITTING UP IN CHAIR ON WAFFLE CUSHION. REFUSED TO GET IN BED. USING WEDGE IN CHAIR. TELEMETRY SHOWS SR. PT GETS UP WITH WALKER AND GAIT BELT HOWEVER PT HAS NOT BEEN OUT OF CHAIR THIS SHIFT. VOIDS PER URINAL YELLOW. O2 AT 2 LITERS NC. WILL CONT TO MONITOR.
[2017-09-03 05:09] LABS: INR 1.6; PROTIME 15.1 Seconds (9.20-11.50)
[2017-09-03 05:10] LABS: HEMATOCRIT 24.4 % (42.0-52.0); HEMOGLOBIN 7.9 gm/dL (14.0-18.0); MCH 25.4 pg (26.0-34.0); MCHC 32.3 g/dL (28.0-37.0); MCV 78.6 fL (80.0-100.0); MPV 6.7 fl. (7.2-11.1); RBC 3.1 mil/uL (4.50-6.00); RDW-CV 17.4 % (10.5-14.5); WBC 3.9 thou/uL (4.0-11.0)
[2017-09-03 06:07] LABS: ALBUMIN 2.7 g/dL (3.4-5.0); CALCIUM 8.5 mg/dL (8.5-10.1); CREATININE 1.1 mg/dL (0.6-1.3); POTASSIUM 4.4 mmol/L (3.5-5.1); TOTAL BILIRUBIN 0.3 mg/dL (<0.1-1.0)
[2017-09-03 09:22] LABS: TOTAL PROTEIN 7.1 g/dL (6.4-8.2)
[2017-09-03 09:25] LABS: INR 1.5; PROTIME 14.6 Seconds (9.20-11.50)
--- NOTE | 2017-09-03 10:44 | NUR ---
VSS. ASSUMED CARE IN AM. PT VOICED PAIN, REQUESTED SCHEDULED PAIN MEDS AND RECIEVED THEM. PT UP TO BEDSIDE COMMODE. PT SHOWS INTEREST IN WALK IN AM. NEEDS ASSESSED AND PT LEFT IN CHAIR WITH CALL LIGHT IN REACH.
--- NOTE | 2017-09-03 18:43 | NUR ---
VSS. ASSUMED CARE IN AM. NSR. PT STATES GENERALIZED PAIN UPWARDS OF 9 ON PAIN SCALE. PT IS UP WITH ONE. PT UNDERWENT THORACENTESIS AND CHEST XRAY THIS AFTERNOON. FAMILY VISITED IN AFTERNOON. IV IN RIGHT INDEX FINGER SALINE LOCKED. PT SHIFTS SELF IN CHAIR FOR COMFORT/TO SHIFT WEIGHT OFF PRESSURE ULCERS STAGE 2 GLUTES. PT LEFT WITH CALL LIGHT IN REACH.
--- NOTE | 2017-09-04 03:37 | NUR ---
ASSUMED CARE OF PT AT 1900. PT IS ALERT AND ORIENTED. VSS. PERRLA. PT REPORTS ONGOING GENERALIZED PAIN. PT IS IN SINUS RYTHM ON THE TELEMETRY. PT IS RESTING COMFORTABLY IN BED. RESPIRATIONS ARE EVEN AND NONLABORED. WILL CONTINUE TO MONITOR PT.
[2017-09-04 04:46] VITALS: BP 109/38
[2017-09-04 05:45] LABS: INR 1.4; PROTIME 13.3 Seconds (9.20-11.50)
--- NOTE | 2017-09-04 09:57 | CON ---
[address] [address] CONSULTATION Name: DOMINIQUE WEISS Room: [address] IN .R.#: [id number] Admission: 08/30/17 Attend Phys: Salvador Hernandez MD Discharge: Date of : 48 Report #: [id number] THIS REPORT FOR: //name// CC: Salvador MENCHACA REASON FOR CONSULTATION: Pleural effusion. HISTORY OF PRESENT ILLNESS: This is a 67-year-old male patient who was admitted to this facility on 08/30/2017 after he presented with weakness. He has a background history of CHF and COPD and pneumonia going back to 05/2017. He has progressive weakness over a course of few days and presented to the ER. He has no chest pain, no radiation and he was admitted with acute renal failure and volume depletion. He was found to be in acute tubular necrosis. During this hospitalization, his creatinine actually improved. Initially, it was 4.8, down to 1.1 today. He had initially has hyperkalemia too. During the past hospitalization in 05/2017, he was admitted with pneumonia with right-sided pleural effusion that was loculated and was thought to be empyema. However, due to his advanced respiratory status, he was not a candidate for any surgical intervention and he was treated with antibiotic. He was sent home. His followup chest x-ray demonstrated right-sided pleural effusion, although the patient reports he has no pain, no shortness of breath, no cough at this point and he feels better. At baseline, he is on Trilogy and oxygen during the daytime. PAST MEDICAL HISTORY: Chronic respiratory failure, on oxygen at daytime and Trilogy at night. He has history of anticoagulation for atrial fibrillation, hypertension, hyperlipidemia, depression, orthopedic surgeries and obstructive sleep apnea, on Trilogy. On last echocardiogram, ejection fraction 55%. SOCIAL HISTORY: He has history of smoking in the past; he quit in the 90s. He does not drink alcohol excessively and does not abuse drugs. FAMILY HISTORY: Coronary artery disease. CURRENT MEDICATIONS: Listed in the myaNUMBER and reviewed. HOME MEDICATIONS: Also reviewed from the myaNUMBER list. REVIEW OF SYSTEMS: A 12-system reviewed with the patient and negative, other than those mentioned above. PHYSICAL EXAMINATION: VITAL SIGNS: On examination, he is on oxygen [place] [address] CONSULTATION Name: DOMINIQUE WEISS Room: [address]#: [id number] Admission: 08/30/17 Attend Phys: Salvador Hernandez MD Discharge: Date of : 48 Report #: [id number] more than 90%. Blood pressure 140/40, pulse rate of 59 and temperature 36.8. GENERAL: Overweight gentleman. Awake, alert, oriented, not in distress. HEAD: Normocephalic, atraumatic. EYES: Pupils reactive to light. ORAL CAVITY: Moist mucous membrane. NECK: Supple. No palpable lymph nodes. No palpable thyroid. Trachea is central. CHEST: Diminished air movement bilaterally. No active wheezes. Diminished air movement, specifically in the right lung base. No crackles. HEART: S1, S2. No murmur. ABDOMEN: Obese, soft, lax and nontender. EXTREMITIES: Lower extremity edema, trace equal bilaterally. No calf tenderness. SKIN: Normal for age and race, no rash. PSYCHIATRIC: Mood and affect appropriate. NEUROLOGIC: Moving all 4 extremities spontaneously. No focal weakness. LABORATORY DATA: His labs were reviewed. His ABGs early during this hospitalization 7.26/48/133 and those were taken on 2 liter oxygen. His INR today is 1.5. His creatinine is 1.1 with potassium of 4.4 and chloride 110. Please note his creatinine was 4.8 upon hospitalization with hyperkalemia. His acute renal failure improved. His white blood count is 3.9, hemoglobin 7.9 and platelet of 180,000. His chest x-ray upon hospitalization showed right-sided pleural effusion with associated atelectasis and same finding on the repeat chest x-ray. IMPRESSION: 1. Right-sided pleural effusion. 2. Chronic obstructive pulmonary disease. 3. Chronic respiratory failure, Trilogy and oxygen dependent. 4. Acute renal failure, improving. 5. Metabolic acidosis, improving. PLAN: Please note the patient was in this facility back in 05/2017 with pneumonia. At that time, he loculated pleural effusion and thoracentesis was attempted. However, due to his poor lung status, surgical option was not considered and he was discharged on antibiotics. He still has right-sided pleural effusion. I suspect it is still loculated. He is being planned for thoracentesis today. We will see what the ultrasound and how successful the thoracentesis will be. He is clinically doing well. We may consider repeat CT scan. However, during the last hospitalization, he had very difficult time lying down. He required Ativan p.o. and fentanyl IV to make him stay still to have the CT scan done. Given his advanced lung disease, his is a poor candidate for any surgical intervention; however, we will wait for [place] [address] CONSULTATION Name: WEISSDOMINIQUE ALANIZ Room: [address]#: [id number] Admission: 08/30/17 Attend Phys: Salvador Hernandez MD Discharge: Date of : 48 Report #: [id number] Thank you for the consult. Discussed with the patient and the nurse. <ELECTRONICALLY SIGNED> By: Anupam Benedict MD 09/04/17 0957 [id number] Dorman MD /nt
[2017-09-04 10:58] VITALS: BP 113/50
[2017-09-04 11:31] VITALS: BP 122/39
[2017-09-04 15:53] VITALS: BP 131/37
--- NOTE | 2017-09-04 16:57 | NUR ---
ASSUMED CARE OF PATIENT AFTER TRANFER OF CARE AT 1300. AGREE WITH PREVIOUS NURSES ASSESSMENT. PATIENT REMAINS ALERT AND ORIENTED X4. VSS ON 2 LITERS 02 AND NSR ON THE MONITOR. PATIENT DOES HAVE SOA UPON EXERTION. PATIENT HAS HAD SOME COMPLAINTS OF ANXIETY AND PAIN WHICH HAVE BEEN MANAGED WITH MEDICATION TODAY. NEW ORDER FOR LORAZEPAN TO RELIEVE ANXIETY ORDERED AND GIVEN THIS AFTERNOON. PATIENT HAS BEEN UP IN THE CHAIR TODAY AND KNOWS HE NEEDS TO MOVE AND SHIFT AROUND TO PREVENT SKIN BREAKDOWN, HE IS VERY COMPLIANT WITH THIS. MANY SUPPORTIVE FAMILY MEMBERS IN THE ROOM TODAY. PATIENT RESTING COMFORTABLY IN THE CHAIR AT THIS TIME, CALL LIGHT PLACED IN REACH AND NURSING WILL CONTINUE TO MONITOR.
[2017-09-04 19:35] VITALS: BP 124/43
[2017-09-05] VITALS: BP 121/42
--- NOTE | 2017-09-05 03:37 | NUR ---
ASSUMED CARE OF PT AT 1900. PT IS ALERT AND ORIENTED. VSS. PERRADAM. PT IS IN SINUS RYTHM ON THE TELEMETRY. PT IS RESTING COMFORTABLY IN BED. RESPIRATIONS ARE EVEN AND NONLABORED. WILL CONTINUE TO MONITOR PT.
[2017-09-05 04:00] VITALS: BP 142/43
[2017-09-05 05:10] LABS: HEMATOCRIT 24.1 % (42.0-52.0); HEMOGLOBIN 7.7 gm/dL (14.0-18.0); MCH 25.3 pg (26.0-34.0); MCHC 32.1 g/dL (28.0-37.0); MCV 78.8 fL (80.0-100.0); MPV 6.8 fl. (7.2-11.1); RBC 3.06 mil/uL (4.50-6.00); RDW-CV 16.9 % (10.5-14.5); WBC 4.9 thou/uL (4.0-11.0)
[2017-09-05 05:15] LABS: INR 1.2; PROTIME 12.1 Seconds (9.20-11.50)
[2017-09-05 06:08] LABS: ALBUMIN 2.6 g/dL (3.4-5.0); CALCIUM 8.2 mg/dL (8.5-10.1); CREATININE 1.1 mg/dL (0.6-1.3); MAGNESIUM 1.6 mg/dL (1.8-2.4); POTASSIUM 4.2 mmol/L (3.5-5.1); TOTAL BILIRUBIN 0.3 mg/dL (<0.1-1.0); TOTAL PROTEIN 6.6 g/dL (6.4-8.2)
[2017-09-05 08:43] VITALS: BP 134/48
--- NOTE | 2017-09-05 08:58 | CON ---
[address] [address] CONSULTATION Name: DOMINIQUE WEISS Room: [address] IN M.R.#: [id number] Admission: 08/30/17 Attend Phys: Salvador Hernandez MD Discharge: Date of : 48 Report #: [id number] THIS REPORT FOR: //name// CC: Salvador MENCHACA DATE OF SERVICE: 08/31/2017 REQUESTING PHYSICIAN: Salvador Hernandez M.D. REASON FOR CONSULTATION: Acute kidney injury. HISTORY OF PRESENT ILLNESS: The patient is a 67-year-old white male with medical history significant for CHF, COPD, was admitted to the hospital with complaints of progressive weakness, lethargy, low energy level. He was on lisinopril and Lasix at home. When labs were checked, he was found to be in acute kidney injury with BUN of 133 and a creatinine of 4.8. He was given fluids and his BUN and creatinine are already improving. Creatinine is down to 3.7 and BUN is down to 122. In the past, he had similar episodes of acute kidney injury, most recent one was in May of this year, creatinine was as high as 4.2, returned to normal in about a 5-day period. The patient had a chest x-ray done and a chest x-ray from yesterday revealed the presence of moderate right pleural effusion with some right lower lobe atelectasis or infiltrates. Findings were fairly similar to studies from 05/24/2017. 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 His echocardiogram from 05/24/2017 revealed a normal size of left ventricle. Normal left ventricular segmental wall motion. Ejection fraction was 55-60%, left ventricular diastolic function was normal. Right ventricle normal size, left atrium normal size. There was mild aortic valve sclerosis, no AR present. No significant valvular stenosis present. Mitral valve with mild mitral annular calcification. Pulmonary valve normal. No pericardial effusion. Conclusion was left ventricular size normal, normal left ventricular wall thickness, normal left ventricle systolic function. No abnormalities were found on echocardiogram. Then he had nuclear stress test done again in May resolved was baseline 12-lead electrocardiogram shows sinus rhythm. There were small size moderate intensity reversible defect in the basal portion of inferior wall associated with wall motion abnormality. There was suggesting some stress-induced ischemia. PAST MEDICAL HISTORY: Significant for morbid obesity, deconditioning, probably likely due to severe COPD exacerbation. He has history of spinal meningitis, history of pneumonia, history of right leg deformity. SOCIAL HISTORY: , lives with his . Used to smoke fairly heavily, [place] [address] CONSULTATION Name: DOMINIQUE WEISS Room: [address] IN M.R.#: [id number] Admission: 08/30/17 Attend Phys: Salvador Hernandez MD Discharge: Date of : 48 Report #: [id number] FAMILY HISTORY: Noncontributory. MEDICATIONS: Prior to admission reviewed. From my standpoint, he was on lisinopril, Lasix. Lisinopril and Lasix were stopped now. REVIEW OF SYSTEMS: GENERAL: Complaint of being very weak. He is very lethargic. He wants to sleep all the time. PHYSICAL EXAMINATION: VITAL SIGNS: His blood pressure 112/40, heart rate 71, afebrile. HEENT: Pupils are round. NECK: Fatty. LUNGS: Decreased air movement. CARDIOVASCULAR: Very distant heart tones. ABDOMEN: Obese. LOWER EXTREMITIES: With trace edema. LABORATORY DATA: Report potassium was 6.3. On admission down to 4.8 now, serum sodium 140, BUN 122, creatinine 3.7, magnesium 1.7. Urinalysis showed trace protein, 1+ blood. Hemoglobin was 8.6, white count 5300. His total CPK was 875. ASSESSMENT: A 67-year-old man with severe COPD deconditioning, obesity, presented with acute kidney injury, likely due to over diuresis and use of lisinopril. ____ fluids, Lisinopril and Lasix are on hold. Renal function improving. He is making good urine. He does not want to have Bradley catheter placed. At this point, given the fact that he has some pleural effusion, I would like to stop his IV fluid and continue with oral hydration. PLAN: I would continue to hold his Lasix and continue to hold his lisinopril. Thank you very much for asking my opinion on acute kidney injury. <ELECTRONICALLY SIGNED> By: Lazarus Hanna MD 09/05/17 0858 [id number] Hanna MD /nt
[2017-09-05 12:28] VITALS: BP 108/24
[2017-09-05 17:04] VITALS: BP 140/43
--- NOTE | 2017-09-05 17:18 | NUR ---
PT SOMEWHAT PROGRESSING TOWARDS GOALS THIS SHIFT. TOLERATING OXYGEN AT 2L/NC. TELE SR. NO OTHER CONCERNS AT THIS TIME. CLWR. WCTM.
[2017-09-05 19:55] VITALS: BP 146/51
[2017-09-06] VITALS: BP 135/49
[2017-09-06 04:00] VITALS: BP 131/51
[2017-09-06 05:09] LABS: HEMATOCRIT 24.1 % (42.0-52.0); HEMOGLOBIN 7.7 gm/dL (14.0-18.0); MCH 25.1 pg (26.0-34.0); MCHC 32.1 g/dL (28.0-37.0); MCV 78.2 fL (80.0-100.0); MPV 6.8 fl. (7.2-11.1); RBC 3.08 mil/uL (4.50-6.00); RDW-CV 16.9 % (10.5-14.5); WBC 4.2 thou/uL (4.0-11.0)
[2017-09-06 05:17] LABS: CALCIUM 8.3 mg/dL (8.5-10.1); CREATININE 1.2 mg/dL (0.6-1.3); MAGNESIUM 1.6 mg/dL (1.8-2.4); POTASSIUM 4.9 mmol/L (3.5-5.1)
[2017-09-06 08:00] VITALS: BP 124/44
--- NOTE | 2017-09-06 11:25 | NUR ---
Pt continues to plan to return home at dc. Pagan.
[2017-09-06 11:40] VITALS: BP 119/42
[2017-09-06 13:00] VITALS: BP 119/42
--- NOTE | 2017-09-06 13:33 | NUR ---
assumed pt care at 0730, full assesment done as charted, pt a/o x4, c/o generalized pain at 10. pts vss, sr/1st avb on the monitor. pt hoping to dc today, spoke to dr Valencia, discharge orders recieved. pt updated on plan of care, discharge wound photos taken. will continue to monitor.
[2017-09-06 13:50] LABS: INR 1.1; PROTIME 10.7 Seconds (9.20-11.50)
[2017-09-06] MEDS ORDERED: AMOXICILLIN 50500 MG PO (15:14)
[2017-09-06 15:36] VITALS: BP 118/76
[2017-09-06] MEDS ORDERED: CEFUROXIME250 MG PO (15:44)
--- NOTE | 2017-10-10 09:29 | CON ---
[address] [address] CONSULTATION Name: DOMINIQUE BOLIVAR Room: [address] IN M.R.#: [id number] Admission: 08/30/17 Attend Phys: Salvador Hernandez MD Discharge: 09/06/17 Date of : 48 Report #: [id number] THIS REPORT FOR: //name// CC: Salvador MENCHACA DATE OF SERVICE: 09/05/2017 CONSULTATION: Infectious diseases. HISTORY OF PRESENT ILLNESS: Mr Bolivar is a 67-year-old gentleman admitted to [facility] in [place] on 08/30 because of increasing weakness. The patient was found to have a markedly elevated creatinine of 4.8. The patient has had at least 3 episodes in the last year of right lower lobe pneumonia. In May, he was diagnosed as having right lower lobe pneumonia with empyema. Thoracentesis was attempted, but was unsuccessful in draining more than just a few mL of fluid. The patient was thought to be too ill with his COPD and other comorbidities to consider a thoracotomy, thoracoscopy or even chest tube drainage. The patient even had trouble lying down for the CT scan. In this setting, the patient was treated with antibiotics and discharged. He returns now with progressive weakness. Thoracentesis was again attempted and again almost no fluid could be returned. Infectious Disease consultation was requested to assist with further evaluation and treatment. PAST MEDICAL HISTORY: Significant for COPD and sleep apnea in spite of relatively minimal tobacco exposure history. The patient has a history of atrial fibrillation, hypertension, hyperlipidemia, congestive heart failure in spite of ejection fraction of 55%. Other diagnoses include sleep apnea, depression and exogenous obesity. ALLERGIES: THE PATIENT HAS A HISTORY OF ADVERSE REACTION TO STATINS WITH RHABDOMYOLYSIS. MEDICATION RECONCILIATION: The patient's current medication list is as follows: Lorazepam 0.25 q. 8 p.o. p.r.n., trazodone 100 mg at bedtime, magnesium oxide 400 mg daily, oxycodone 15 mg 4 times a day p.r.n., nystatin powder b.i.d., pantoprazole 40 mg daily, iron 325 mg daily, tamsulosin 0.4 mg daily, amiodarone 200 mg daily, finasteride 5 mg daily, sertraline 200 mg daily, DuoNeb 3 mL aerosol q.i.d., morphine 30 mg p.o. t.i.d., lispro insulin sliding scale, metoprolol 25 mg b.i.d., glucose, dextrose, glucagon as needed, promethazine 12.5 mg q. 4h. p.r.n. IV, bisacodyl 10 mg daily, magnesium hydroxide 10 mg daily, melatonin 10 mg at bedtime, diphenhydramine 25 mg q. 6 p.r.n., zolpidem 5 mg at bedtime p.r.n., Atarax 25 mg b.i.d. p.r.n., trospium chloride 20 mg b.i.d. p.r.n., Tylenol 650 mg q. 4 p.r.n., montelukast 10 mg at bedtime, albuterol 2 mg tablet daily and Rocephin 1 [place] [id number] CONSULTATION Name: DOMINIQUE BOLIVAR Room: [address] IN Donny#: [id number] Admission: 08/30/17 Attend Phys: Salvador Hernandez MD Discharge: 09/06/17 Date of : 48 Report #: [id number] FAMILY HISTORY: Noncontributory. SOCIAL HISTORY: The patient is . He did smoke about a pack per day, but quit about 35 years ago. No history of alcohol nor drugs. The patient currently lives with his in a [id number] apartment in his kid's house along with their kids and their grandkids. The patient said this is a very comfortable situation. He feels very secure there. REVIEW OF SYSTEMS: General: The patient is not complaining of fevers, chills or sweats. Denies headache, sinus congestion, sore throat or trouble swallowing. He has generalized weakness and malaise. The patient denies cough, chest pain or shortness of breath. He does have some pleuritic chest pain, particularly with certain kinds of motion. No angina, syncope, palpitations or other chest pains. The patient denies nausea, vomiting, diarrhea or constipation. Denies urinary complaints. No pain in his extremities, but is quite weak. PHYSICAL EXAMINATION: GENERAL: The patient appears his stated age, alert, oriented, comfortable, not in any distress, lying at rest with supplemental oxygen. ENT: Unremarkable. NECK: Supple. HEART: Heart sounds diminished anteriorly. LUNGS: Breath sounds are difficult to auscultate as well. ABDOMEN: The belly is morbidly obese, soft and not tender. EXTREMITIES: Obese, soft, otherwise not tender. SKIN: Good repair with no wounds. Pulses are satisfactory. LABORATORY DATA: White count is 4.9, hemoglobin 7.7, hematocrit 24% and platelet 188,000. Electrolytes, BUN, creatinine and liver function tests are normal. Radiographs show continued right lower lobe infiltrate or effusion. 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 Unfortunately, the patient was unable to tolerate aggressive treatment for empyema nor for the subsequent pleural peel. 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 This is reducing the patient's pulmonary function even further. The patient presented at this time with dehydration and acute renal failure, which did respond to fluids. At this time, I suspect the antibiotics will have a relatively limited role in the treatment of this chronic empyema and scar tissue. Rocephin is reasonable coverage for the usual pulmonary pathogens. The patient could be discharged hopefully in the next few days. I will suggest amoxicillin since all the cultures have been negative and pneumococcus is the most likely pathogen. We may want to consider Augmentin [place] [id number] CONSULTATION Name: DOMINIQUE BOLIVAR Room: [address] IN [facility].#: [id number] Admission: 08/30/17 Attend Phys: Salvador Hernandez MD Discharge: 09/06/17 Date of : 48 Report #: [id number] We could consider sending the patient to a tertiary care center for a second opinion regarding more aggressive treatment for chronic empyema. Alternatively, we could just use chronic antibiotic therapy with something like amoxicillin or Augmentin for 3 months in hopes of sterilizing this inflammatory mass. I am afraid the patient will be left with chronic pulmonary damage no matter what we do. At this time, I would recommend a very long course of antibiotics. The patient can probably go home on oral antibiotics in the next few days, but should plan to continue those antibiotics for at least 3 months. We can obtain followup radiographs to assess improvement in the lung to make sure it is not getting worse. At some point, the patient and family should decide if they would consider any attempt on more aggressive therapy in spite of the high risk for any procedure. At this point, the patient feels most comfortable with the idea of going home on oral antibiotics. I appreciate the opportunity of input in the care of this complex patient. Thank you for requesting infectious disease consultation. <ELECTRONICALLY SIGNED> By: Luis Oleary MD 10/10/17 0929 [id number] [id number] Oleary MD /nt
== END 2017-09-06 16:20 | disposition home health service (06) | DRG 177 ==
LOC: M.ERS 17:17 → M.TBA-ER 19:27 → M.2W 19:27
PROVIDERS: Family Medicine; Internal Medicine; Internal Medicine Nephrology; Nurse Practitioner Family; ADMIT Internal Medicine
DX: J86.9 Pyothorax without fistula (principal); N17.0 Acute kidney failure with tubular necrosis; J96.02 Acute respiratory failure with hypercapnia; I50.42 Chronic combined systolic (congestive) and diastolic (congestive) heart failure; E87.2 Acidosis; I13.0 Hypertensive heart and chronic kidney disease with heart failure and stage 1 through stage 4 chronic kidney disease, or unspecified chronic kidney disease; J44.9 Chronic obstructive pulmonary disease, unspecified; I48.91 Unspecified atrial fibrillation; F32.9 Major depressive disorder, single episode, unspecified; N18.3 Chronic kidney disease, stage 3 (moderate); D64.9 Anemia, unspecified; E83.42 Hypomagnesemia; G47.33 Obstructive sleep apnea (adult) (pediatric); E86.0 Dehydration; E66.01 Morbid (severe) obesity due to excess calories; E87.5 Hyperkalemia; H91.91 Unspecified hearing loss, right ear; E78.00 Pure hypercholesterolemia, unspecified; Z99.81 Dependence on supplemental oxygen; Z68.39 Body mass index [BMI] 39.0-39.9, adult; Z86.61 Personal history of infections of the central nervous system; Z79.01 Long term (current) use of anticoagulants; Z79.899 Other long term (current) drug therapy; Z87.891 Personal history of nicotine dependence; Z88.8 Allergy status to other drugs, medicaments and biological substances; Z82.49 Family history of ischemic heart disease and other diseases of the circulatory system

== ENCOUNTER 2018-01-06 17:13 | Inpatient (IN) | payer MEDICARE ==
[~2018-01-06] VITALS: Ht 185.4 cm; Wt 141.1 kg
[~2018-01-06 17:13] MED LIST changes: +AMOXICILLIN 50500 MG PO; +CEFUROXIME250 MG PO; +OMEPRAZOLE20 M2 PO
[2018-01-06 17:14] VITALS: BP 154/72
[2018-01-06 17:53] LABS: ABSOLUTE BASOPHILS 0.1 thou/uL (0.0-0.2); ABSOLUTE EOSINOPHILS 0.1 thou/uL (0.0-0.7); ABSOLUTE MONOCYTES 0.6 thou/uL (0.0-1.2); ABSOLUTE NEUTROPHILS 7.1 thou/uL (1.6-8.1); BASOPHILS 0.6 %; EOSINOPHILS 0.7 %; HEMATOCRIT 37.3 % (42.0-52.0); HEMOGLOBIN 12.2 gm/dL (14.0-18.0); LYMPHOCYTES 11.3 %; MCH 25.5 pg (26.0-34.0); MCHC 32.8 g/dL (28.0-37.0); MCV 77.6 fL (80.0-100.0); MONOCYTES 7.3 %; MPV 6.4 fl. (7.2-11.1); NUCLEATED RBCS 0 /100WBC; PLATELET COUNT* 281 thou/uL (150-400); POLYS 80.1 %; RDW-CV 15.7 % (10.5-14.5); WBC 8.8 thou/uL (4.0-11.0)
[2018-01-06 18:03] LABS: CALCIUM 9.7 mg/dL (8.5-10.1); CREATININE 1.3 mg/dL (0.6-1.3); POTASSIUM 4.3 mmol/L (3.5-5.1)
[2018-01-06 18:07] LABS: ALBUMIN 3.5 g/dL (3.4-5.0); TOTAL BILIRUBIN 0.3 mg/dL (<0.1-1.0); TOTAL PROTEIN 9.6 g/dL (6.4-8.2)
[2018-01-06 22:17] VITALS: BP 143/58
[2018-01-06 22:25] VITALS: BP 130/60
[2018-01-06] MEDS ORDERED: COUMADIN 3 MG TA3 M1 PO (23:43)
[2018-01-06] MEDS ORDERED: COLACE100 MG PO (23:44)
[2018-01-06] MEDS ORDERED: PROBIOTIC1 EAC1 PO (23:44)
[2018-01-07] VITALS: BP 143/62
[2018-01-07 04:00] VITALS: BP 114/42
[2018-01-07 05:09] LABS: HEMATOCRIT 34.5 % (42.0-52.0); HEMOGLOBIN 11.2 gm/dL (14.0-18.0); MCH 25.3 pg (26.0-34.0); MCHC 32.4 g/dL (28.0-37.0); MCV 78.2 fL (80.0-100.0); MPV 6.7 fl. (7.2-11.1); RBC 4.41 mil/uL (4.50-6.00); WBC 7.3 thou/uL (4.0-11.0)
[2018-01-07 05:48] LABS: ALBUMIN 3.1 g/dL (3.4-5.0); CALCIUM 8.4 mg/dL (8.5-10.1); CREATININE 1.3 mg/dL (0.6-1.3); POTASSIUM 4.2 mmol/L (3.5-5.1); TOTAL BILIRUBIN 0.2 mg/dL (<0.1-1.0); TOTAL PROTEIN 7.7 g/dL (6.4-8.2)
[2018-01-07 08:20] VITALS: BP 131/51
[2018-01-07 10:29] LABS: URINE BILIRUBIN NEGATIVE (Negative); URINE BLOOD 2+ (Negative); URINE CLARITY CLEAR; URINE COLOR YELLOW; URINE GLUCOSE-RANDOM NEGATIVE (Negative); URINE KETONES NEGATIVE (Negative); URINE LEUKOCYTES NEGATIVE (Negative); URINE NITRITE NEGATIVE (Negative); URINE PROTEIN TRACE (Negative); URINE UROBILINOGEN 0.2 E.U./dl (0.2-1.0)
[2018-01-07 10:58] LABS: SQUAMOUS 0-3 Few /LPF (0-3); URINE WBC 0-5 Rare /HPF (0-5)
[2018-01-07 10:59] LABS: BACTERIA 1-9 Few /HPF (None Seen); CASTS None Seen /LPF (None Seen); CRYSTALS None Seen /LPF (None Seen); MUCUS None Seen strn/LPF (None Seen); URINE RBC 0-2 Rare /HPF (0-2)
[2018-01-07 13:21] LABS: ABSOLUTE EOSINOPHILS 0.1 thou/uL (0.0-0.7); ABSOLUTE LYMPHOCYTES 1.6 thou/uL (0.8-5.3); ABSOLUTE MONOCYTES 0.6 thou/uL (0.0-1.2); ABSOLUTE NEUTROPHILS 4.1 thou/uL (1.6-8.1); BASOPHILS 0.4 %; EOSINOPHILS 1.3 %; HEMATOCRIT 32.1 % (42.0-52.0); HEMOGLOBIN 10.5 gm/dL (14.0-18.0); LYMPHOCYTES 24.5 %; MCH 25.5 pg (26.0-34.0); MCHC 32.7 g/dL (28.0-37.0); MONOCYTES 10.2 %; MPV 6.5 fl. (7.2-11.1); NUCLEATED RBCS 0 /100WBC; PLATELET COUNT* 230 thou/uL (150-400); POLYS 63.6 %; RBC 4.12 mil/uL (4.50-6.00); RDW-CV 15.7 % (10.5-14.5); WBC 6.4 thou/uL (4.0-11.0)
[2018-01-07 13:29] LABS: CALCIUM 8.5 mg/dL (8.5-10.1); CREATININE 1.2 mg/dL (0.6-1.3)
[2018-01-07 14:28] VITALS: BP 133/44
[2018-01-07 16:33] LABS: APTT 34.1 Seconds (25.0-31.3); INR 1.6; PROTIME 15.5 Seconds (9.20-11.50)
[2018-01-07 18:37] VITALS: BP 134/74
[2018-01-07 20:30] VITALS: BP 168/54
[2018-01-08] VITALS: BP 136/42
[2018-01-08 04:00] VITALS: BP 144/46
[2018-01-08 04:51] LABS: ABSOLUTE EOSINOPHILS 0.1 thou/uL (0.0-0.7); ABSOLUTE LYMPHOCYTES 1.5 thou/uL (0.8-5.3); ABSOLUTE MONOCYTES 0.5 thou/uL (0.0-1.2); ABSOLUTE NEUTROPHILS 2.8 thou/uL (1.6-8.1); BASOPHILS 0.3 %; EOSINOPHILS 2.2 %; HEMATOCRIT 31.4 % (42.0-52.0); HEMOGLOBIN 10.1 gm/dL (14.0-18.0); LYMPHOCYTES 30.9 %; MCH 25.4 pg (26.0-34.0); MCHC 32.2 g/dL (28.0-37.0); MCV 78.9 fL (80.0-100.0); MONOCYTES 9.8 %; MPV 6.8 fl. (7.2-11.1); NUCLEATED RBCS 0 /100WBC; PLATELET COUNT* 206 thou/uL (150-400); POLYS 56.8 %; RBC 3.98 mil/uL (4.50-6.00); RDW-CV 15.7 % (10.5-14.5); WBC 4.9 thou/uL (4.0-11.0)
[2018-01-08 04:58] LABS: CALCIUM 8.7 mg/dL (8.5-10.1); CREATININE 1.2 mg/dL (0.6-1.3); POTASSIUM 3.5 mmol/L (3.5-5.1)
[2018-01-08 05:26] LABS: MAGNESIUM 2.1 mg/dL (1.8-2.4); PHOSPHORUS* 3.5 mg/dL (2.5-4.9)
[2018-01-08 08:00] VITALS: BP 155/55
[2018-01-08 12:35] VITALS: BP 164/52
--- NOTE | 2018-01-08 12:42 | CON ---
[address] [address] CONSULTATION Name: DOMINIQUE WEISS Room: [address] IN M.R.#: [id number] Admission: 01/06/18 Attend Phys: Natividad Mccauley Discharge: Date of : 48 Report #: [id number] THIS REPORT FOR: //name// CC: FAM unknown Castro Valencia DATE OF SERVICE: 01/07/2018 REQUESTING PHYSICIAN: Teodoro Estrada DO INDICATION FOR CONSULTATION: Pleural effusion. HISTORY OF PRESENT ILLNESS: This is a 67 years old gentleman whose past medical history includes a history of pleural effusion on the right side, which has at least been present since May of this year. The patient did have a thoracentesis, which was performed in May. At this time, this was a lymphocyte dominant transudate; however, the protein was 2.9 in the fluid. There was subsequent attempt at repeat thoracentesis in August as well, but at that point, the pleural fluid had thickened to the point that thoracentesis was not possible due to fibrous tissue also being present. The patient has been evaluated by ID service as well earlier this year and was on a prolonged course of antibiotics for more than 3 months. Evaluation was performed regarding whether this fluid should be surgically drained; however, it was felt that VATS procedure will not be sufficient and the patient was deemed to be too sick for an open thoracotomy to be performed and therefore the same was not performed. The patient also does have COPD. He has a Trilogy, which he uses regularly. He is also on long-term oxygen therapy. Further, he is anticoagulated with Coumadin at home for history of atrial fibrillation. He is not on long-term prednisone. The patient at this time is here for abdominal complaints. He says for the last several days, he has had extremely severe abdominal pain up to 10/10. He has also had nausea and has had at least 2 episodes of vomiting. No blood in the vomitus. He reports a longstanding history of disturbed sleep at night with sleepiness during the day with significant improvement noted with his Trilogy. He says he loves his Trilogy and uses it regularly. He also has various joint pains, as well as back pain. He says that it makes it essentially impossible for him to lay flat without being in severe pain. He does not have any increase in swelling of lower extremities. The patient answered to the negative for 12 questions for review of systems except as mentioned above. PAST MEDICAL HISTORY: Longstanding history of right-sided pleural effusion with a borderline transudate with a protein of 2.9 in the [place] [address] CONSULTATION Name: DOMINIQUE WEISS Room: [address] IN .R.#: [id number] Admission: 01/06/18 Attend Phys: Natividad Mccauley Discharge: Date of : 48 Report #: [id number] Subsequent tap was not possible due to it being too thick or fibrous tissue being present. COPD, on long-term oxygen, not on long-term prednisone. Obstructive sleep apnea by clinical history. No previous sleep study on Trilogy while asleep. He says he uses it religiously. Atrial fibrillation, chronic. He is on Coumadin long-term. The last available echo shows a left ventricular ejection fraction of 55% to 60% without elevation in right heart pressures, acute renal failure in May with a creatinine elevated to 4.2 and a potassium of 7.5. The patient's previous baseline creatinine was around 1.2. The patient's baseline pCO2 levels are in the range of 48 to 52, longstanding history of back pain as described above, hypertension, hyperlipidemia, depression, several orthopedic surgeries, Pérez's shunt. SOCIAL HISTORY: Extensive history of smoking. He says he discontinued in the mid . No known history of heavy alcohol use or illegal drug use. CURRENT MEDICATIONS: List in [employer] reviewed. MEDICATIONS: List also reviewed. Note that he has been on long-term suppressive antibiotic therapy for several months earlier this year. ALLERGIES: No known drug allergies. FAMILY HISTORY: Coronary artery disease. PHYSICAL EXAMINATION: GENERAL: He is alert, awake and oriented. VITAL SIGNS: He has a pulse of 79 and blood pressure 133/44. He appears to be well perfused. He is saturating 98% on 3 L nasal cannula. His respiratory rate is 16. He is afebrile with a temperature of 36.9. Body mass index is elevated to 41. HEENT: Head is normocephalic and atraumatic. Pupils are equal and reactive. There is no throat erythema. He has a narrow airway. NECK: Does not show raised JVP, asymmetry, mass or lymph nodes. CHEST: Decreased expansion on the right side compared to on inspection and palpation. On auscultation, breath sounds are absent at the right lung base. I do not hear any added sounds. HEART: Irregular. There is no murmur. ABDOMEN: Soft, nontender, but this was shortly after he had received some narcotics. The patient reported severe pain prior. EXTREMITIES: Lower extremities showed trace edema. There is no calf tenderness. SKIN: Dry and intact. NEUROLOGICAL: He moves all extremities bilaterally equally and spontaneously. There is no focal deficit identified. DATA: The patient has had a CT of the abdomen and pelvis with IV contrast [address] [address] CONSULTATION Name: DOMINIQUE WEISS Room: [address] IN [facility].#: [id number] Admission: 01/06/18 Attend Phys: Natividad Mccauley Discharge: Date of : 48 Report #: [id number] performed yesterday. I reviewed the lower chest part of these CT film. I also in fact called and talked to the radiologist. I reviewed the entire report. The patient's CBC, as well as chemistries are in [facility] and these are reviewed. Urinalysis also in [facility] reviewed. ASSESSMENT AND PLAN: 1. Chronic right-sided loculated pleural effusion. See further discussion above. I reviewed the CT of the abdomen and pelvis. At first glance, it appears to me that this may have increased in size compared with when the last CT chest was performed. I therefore initially discussed with the patient regarding repeating a CT chest. The patient, however, says that he finds it very difficult to lay flat and may need premedication if the same is performed. Therefore, I will start with a chest x-ray. Note that the patient takes Coumadin at home and therefore, I will go ahead and do a PT and PTT as well. If there is an increase in size of this pleural effusion, then attempt at placing a pigtail on the right side next Wednesday could be a consideration. I did call and discussed with radiologist. Meanwhile, the patient currently is on Zosyn and Levaquin. I will get further information regarding the antibiotics ad terminal makeup operator he has received previously and then I will be inclined to cut back on his antibiotic to a single agent soon. 2. Chronic respiratory failure with hypoxemia and hypercarbia. Continue oxygen and Trilogy. He is also on Trilogy while asleep. We will continue the same. 3. Chronic obstructive pulmonary disease. He remains on nebulized bronchodilators. He is not actively bronchospastic. 4. Partial small bowel obstruction. We will defer management to the surgery service. 5. Atrial fibrillation. Note, he takes Coumadin at home. He does not appear tachycardic at this time. 6. Past medical history of fluid overload. Note that he is on Lasix senior care. He does not appear to have any significant fluid overload at this time. Thanks for this consultation. <ELECTRONICALLY SIGNED> By: Wayne Haro MD 01/08/18 1242 1600 [id number] Haro MD /nt
[2018-01-08 15:49] VITALS: BP 138/50
[2018-01-08 20:00] VITALS: BP 145/54
[2018-01-09] VITALS: BP 137/49
[2018-01-09 04:00] VITALS: BP 114/40
[2018-01-09 04:25] LABS: ABSOLUTE EOSINOPHILS 0.3 thou/uL (0.0-0.7); ABSOLUTE LYMPHOCYTES 1.5 thou/uL (0.8-5.3); ABSOLUTE MONOCYTES 0.5 thou/uL (0.0-1.2); ABSOLUTE NEUTROPHILS 2.9 thou/uL (1.6-8.1); BASOPHILS 0.5 %; EOSINOPHILS 5.1 %; HEMATOCRIT 31.3 % (42.0-52.0); HEMOGLOBIN 10.1 gm/dL (14.0-18.0); LYMPHOCYTES 29.2 %; MCH 25.4 pg (26.0-34.0); MCHC 32.2 g/dL (28.0-37.0); MCV 78.9 fL (80.0-100.0); MONOCYTES 9.9 %; MPV 6.4 fl. (7.2-11.1); NUCLEATED RBCS 0 /100WBC; PLATELET COUNT* 200 thou/uL (150-400); POLYS 55.3 %; RBC 3.97 mil/uL (4.50-6.00); RDW-CV 15.9 % (10.5-14.5); WBC 5.2 thou/uL (4.0-11.0)
[2018-01-09 04:30] LABS: INR 1.4; PROTIME 13.4 Seconds (9.20-11.50)
[2018-01-09 04:50] LABS: CALCIUM 8.9 mg/dL (8.5-10.1); CREATININE 1.2 mg/dL (0.6-1.3); POTASSIUM 3.2 mmol/L (3.5-5.1)
[2018-01-09 04:59] LABS: MAGNESIUM 1.9 mg/dL (1.8-2.4); PHOSPHORUS* 4.2 mg/dL (2.5-4.9)
[2018-01-09 09:00] VITALS: BP 134/46
[2018-01-09 12:00] VITALS: BP 163/56
[2018-01-09 16:00] VITALS: BP 137/49
[2018-01-09 20:00] VITALS: BP 144/55
[2018-01-10] VITALS: BP 129/56
[2018-01-10 04:00] VITALS: BP 132/59
[2018-01-10 04:57] LABS: HEMATOCRIT 30.8 % (42.0-52.0); HEMOGLOBIN 9.9 gm/dL (14.0-18.0); MCH 25.5 pg (26.0-34.0); MCHC 32.3 g/dL (28.0-37.0); MPV 6.7 fl. (7.2-11.1); RBC 3.89 mil/uL (4.50-6.00); RDW-CV 15.7 % (10.5-14.5); WBC 5.2 thou/uL (4.0-11.0)
[2018-01-10 05:13] LABS: INR 1.3; PROTIME 12.4 Seconds (9.20-11.50)
[2018-01-10 05:38] LABS: CALCIUM 8.5 mg/dL (8.5-10.1); CREATININE 1.2 mg/dL (0.6-1.3); MAGNESIUM 1.6 mg/dL (1.8-2.4); PHOSPHORUS* 3.4 mg/dL (2.5-4.9); POTASSIUM 3.6 mmol/L (3.5-5.1)
[2018-01-10 08:00] VITALS: BP 124/70
[2018-01-10 12:12] VITALS: BP 139/53
[2018-01-10 16:24] VITALS: BP 140/65
[2018-01-10 20:00] VITALS: BP 146/62
[2018-01-11] VITALS (7 sets, daily range): BP systolic 113–137; BP diastolic 44–56
[2018-01-11 05:16] LABS: HEMOGLOBIN 10.5 gm/dL (14.0-18.0); MCH 25.6 pg (26.0-34.0); MCHC 32.7 g/dL (28.0-37.0); MCV 78.5 fL (80.0-100.0); MPV 6.7 fl. (7.2-11.1); RBC 4.08 mil/uL (4.50-6.00); RDW-CV 15.8 % (10.5-14.5); WBC 4.7 thou/uL (4.0-11.0)
[2018-01-11 05:24] LABS: INR 1.2; PROTIME 11.4 Seconds (9.20-11.50)
[2018-01-11 05:37] LABS: CALCIUM 8.4 mg/dL (8.5-10.1); CREATININE 1.3 mg/dL (0.6-1.3); PHOSPHORUS* 4.2 mg/dL (2.5-4.9); POTASSIUM 3.6 mmol/L (3.5-5.1)
[2018-01-11] MEDS ORDERED: OXYCODONE HCL 55 MG PO (13:33)
== END 2018-01-11 14:04 | disposition home health service (06) | DRG 388 ==
LOC: M.ERS 17:13 → M.TBA-ER 21:24 → M.2W 21:24
PROVIDERS: Internal Medicine; Internal Medicine Critical Care Medicine; Nurse Practitioner Family; ADMIT Internal Medicine
DX: K56.600 Partial intestinal obstruction, unspecified as to cause (principal); J15.6 Pneumonia due to other Gram-negative bacteria; R65.10 Systemic inflammatory response syndrome (SIRS) of non-infectious origin without acute organ dysfunction; J96.11 Chronic respiratory failure with hypoxia; J96.12 Chronic respiratory failure with hypercapnia; Z68.41 Body mass index [BMI] 40.0-44.9, adult; F11.20 Opioid dependence, uncomplicated; E78.00 Pure hypercholesterolemia, unspecified; H91.91 Unspecified hearing loss, right ear; G47.33 Obstructive sleep apnea (adult) (pediatric); I50.9 Heart failure, unspecified; I11.0 Hypertensive heart disease with heart failure; G89.29 Other chronic pain; J44.9 Chronic obstructive pulmonary disease, unspecified; I48.91 Unspecified atrial fibrillation; E66.01 Morbid (severe) obesity due to excess calories; Z98.1 Arthrodesis status; Z99.81 Dependence on supplemental oxygen; Z90.49 Acquired absence of other specified parts of digestive tract; Z87.891 Personal history of nicotine dependence; Z79.01 Long term (current) use of anticoagulants; Z79.899 Other long term (current) drug therapy; Z82.49 Family history of ischemic heart disease and other diseases of the circulatory system

== ENCOUNTER 2018-04-16 19:12 | Emergency (ER) | payer MEDICARE ==
[~2018-04-16] VITALS: Ht 177.8 cm; Wt 144.2 kg
[~2018-04-16 19:12] MED LIST changes: +COLACE100 MG PO; +OXYCODONE HCL 55 MG PO; +PROBIOTIC1 EAC1 PO
[2018-04-16 22:45] VITALS: BP 138/43
--- NOTE | 2018-04-17 15:39 | EKG ---
[place] [address] ELECTROCARDIOGRAM REPORT Name: DOMINIQUE WEISS Room: [facility]#: [id number] Admission: 04/16/18 Attend Phys: Discharge: 04/16/18 Date of : 48 Report #: [id number] THIS REPORT FOR: //name// [facility] ED Test Date: 2018-04-16 Test Time: 19:15:03 Pat Name: DOMINIQUE WEISS Department: Room: Gender: M Data Warehousing Specialist: EKTA : 1950 Requested By: Goldy Campos Order Number: [id number] Reading MD: Porfirio Colbert Measurements Intervals [place] Rate: 94 P: 0 MN: 62 QRS: -22 QRSD: 104 T: 58 QT: 397 QTc: 497 Interpretive Statements Sinus rhythm Short MN interval Abnormal R-wave progression, late transition Inferior infarct, old Lateral leads are also involved Compared to ECG 08/30/2017 17:17:28 Myocardial infarct finding now present Electronically Signed On 04-17-2018 15:38:57 DIE TRY OUT WORKER by Porfirio Colbert [email or web address] <ELECTRONICALLY SIGNED> By: Porfirio Colbert MD, FAC 04/17/18 1538 14 Porfirio Colbert MD, [facility] /EPI
== END 2018-04-16 22:46 | disposition home or self-care (01) ==
LOC: M.ERS 19:12
DX: K20.9 Esophagitis, unspecified (principal); I48.91 Unspecified atrial fibrillation; I10 Essential (primary) hypertension; E78.00 Pure hypercholesterolemia, unspecified; R06.00 Dyspnea, unspecified

== ENCOUNTER 2018-05-06 21:28 | Inpatient (IN) | payer MEDICARE, OTHER ==
[~2018-05-06] VITALS: Ht 177.8 cm; Wt 143.3 kg
[2018-05-06 21:37] VITALS: BP 170/74
[2018-05-06 22:06] LABS: ABSOLUTE EOSINOPHILS 0.1 thou/uL (0.0-0.7); ABSOLUTE LYMPHOCYTES 1.2 thou/uL (0.8-5.3); ABSOLUTE MONOCYTES 0.5 thou/uL (0.0-1.2); ABSOLUTE NEUTROPHILS 4.3 thou/uL (1.6-8.1); BASOPHILS 0.5 %; EOSINOPHILS 2.1 %; HEMATOCRIT 35.2 % (42.0-52.0); HEMOGLOBIN 11.4 gm/dL (14.0-18.0); LYMPHOCYTES 19.9 %; MCH 25.3 pg (26.0-34.0); MCHC 32.5 g/dL (28.0-37.0); MCV 77.9 fL (80.0-100.0); MONOCYTES 8.4 %; MPV 6.4 fl. (7.2-11.1); NUCLEATED RBCS 0 /100WBC; PLATELET COUNT* 211 thou/uL (150-400); POLYS 69.1 %; RBC 4.52 mil/uL (4.50-6.00); RDW-CV 16.5 % (10.5-14.5); WBC 6.1 thou/uL (4.0-11.0)
[2018-05-06 22:12] LABS: ANION GAP 7 mmol/L (7-16); BUN 28 mg/dL (7-18); CALCIUM 8.8 mg/dL (8.5-10.1); CHLORIDE 98 mmol/L (98-107); CO2 34 mmol/L (21-32); CREATININE 1.3 mg/dL (0.6-1.3); GLUCOSE 128 mg/dL (70-99); POTASSIUM 3.7 mmol/L (3.5-5.1); SODIUM 139 mmol/L (136-145)
[2018-05-06 22:14] LABS: APTT 38.8 Seconds (25.0-31.3); INR 2.6; PROTIME 26.1 Seconds (9.20-11.50)
[2018-05-06 22:23] LABS: ALBUMIN 3.2 g/dL (3.4-5.0); ALKALINE PHOSPHATASE 86 U/L (46-116); NT-PRO BRAIN NAT PEPTIDE 599 pg/mL (<300); SGOT 24 U/L (15-37); SGPT 21 U/L (30-65); TOTAL BILIRUBIN 0.3 mg/dL (<0.1-1.0); TOTAL PROTEIN 9.6 g/dL (6.4-8.2); TROPONIN-I LEVEL <0.06 ng/mL (<0.06)
[2018-05-07] MEDS ORDERED: PRINIVIL20 MG PO (00:30)
[2018-05-07 01:29] VITALS: BP 148/61
[2018-05-07] MEDS ORDERED: ALBUTEROL2.5 MG/31 INH (03:58)
[2018-05-07 04:00] VITALS: BP 143/54
--- NOTE | 2018-05-07 04:30 | NUR ---
REPORT RECIEVED FROM JOHNNY @ 0122. PT ARRIVED FROM ED PER CART @0140. A+OX4. PT C/O BACK,HIP,LEG PAIN. TREMORS DURING PART OF ASSESSMENT. PT REPORTS HE "USES A CANE AT HOME AND FELL X 2 TODAY AND I LANDED ON MY BUTT." PT REPORTED "I GET SHAKY SOMETIMES. ESPECIALLY WHEN IM IN PAIN AND HAVING ALOT OF ANXIETY." SCRATHES AND SCABS NOTED ON BLE. PT REPORTS HE "SCRATCHES HIS LEGS WITH A BACK SCRATHCER." GENERALIZED DRY SKIN NOTED. ADMISSION ASSESSMENT COMPLETE. REPEAT BP 144/63. PT REPORTED PAIN @ 9/10. RECONCILIED PT'S HOME MEDS. ONE TIME MORPHINE ORDER GIVEN. CALLED DR FOR ORDERS. NOTIFIED DR PT REQUEST PAIN, ANXIETY, AND NAUSEA MEDICATION ALSO. PT WAS AFIB RVR AND NOW SR IN THE 90'S WITH CARDIZEM DRIP @ 10ML HR. (PT REPORTED HE DID NOT TAKE HIS AMIODERONE DOSE THIS EVENING). FALL PRECAUTIONS IN PLACE. PT VOIDED PER URINAL. CALL LIGHT IN REACH. HOURLY ROUNDING FOR SAFETY.
[2018-05-07 07:45] VITALS: BP 162/41
--- NOTE | 2018-05-07 07:53 | NUR ---
TOOK PICTURE OF OPEN AND REDDENED AREAS ON BILAT BUTTOCKS- PLACED IN CHART. LEFT MESSAGE FOR WOUND CARE NURSE.
--- NOTE | 2018-05-07 08:37 | NUR ---
RECEIVED REPORT FROM TIFFANI AND ASSUMED CARE OF PT @ 2880.PT IS A/O X4,VSS TRACING SR WITH 1ST DEGREE ON THE MONITOR.ASSESSMENT CHARTED.PT REMAINS ON 3L O2 NC.RIGHT HAND IV PATENT WITH CARDIZEM INFUSING @ 10.RIGHT AC IV PATENT AND SALINE LOCKED.PT IS ANXIOUS BUT COOPERATIVE.PT IS C/O PAIN IN BACK,LEG, AND HIP AND HAVING TREMORS.PT IS UP WITH SBA WITH CANE TO BSC AND CHAIR.PT LEFT RESTINGIN RECLINER WITH CALL LIGHT AND FALL PRECAUTIONS IN PLACE.WILL COTNINUE TO MONITOR.
[2018-05-07 12:00] VITALS: BP 135/55
--- NOTE | 2018-05-07 15:02 | EKG ---
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: : 1950 Requested By: Georgina Burton Order Number: [id number] MD: Lang Benítez Measurements Intervals [place] Rate: 120 P: HI: QRS: -29 QRSD: 108 T: 97 QT: 356 QTc: 503 Interpretive Statements Atrial fibrillation Inferior infarct, old Consider anterior infarct Prolonged QT interval Compared to ECG 04/16/2018 19:15:03 Prolonged QT interval now present Sinus rhythm no longer present Myocardial infarct finding still present Electronically Signed On 05-07-2018 15:02:21 BUTCHER FISH by Lang Benítez [email or web address] <ELECTRONICALLY SIGNED> By: Lang Benítez MD, FACC 05/07/18 1502 2316 2316 Lang Benítez MD, [facility] /EPI
--- NOTE | 2018-05-07 15:04 | EKG ---
[place] [address] ELECTROCARDIOGRAM REPORT Name: DOMINIQUE WESIS Room: [address] ADM IN M.R.#: [id number] Admission: 05/07/18 Attend Phys: Michelle Andrew MD Discharge: Date of : 48 Report #: [id number] THIS REPORT FOR: //name// [facility] Test Date: 2018-05-07 Test Time: 05:34:50 Pat Name: DOMINIQUE THEODORELIVAN Department: Room: [address] Gender: M Induction Heating Equipment Setter: GUSTAVO : 1950 Requested By: Michelle Andrew Order Number: [id number] Reading MD: Lang Benítez Measurements Intervals [place] Rate: 102 P: 36 VT: 214 QRS: -21 QRSD: 96 T: 46 QT: 360 QTc: 469 Interpretive Statements Sinus tachycardia Borderline prolonged VT interval Borderline left axis deviation Low voltage, precordial leads Compared to ECG 04/16/2018 19:15:03 Low QRS voltage now present Sinus rhythm now present Electronically Signed On 05-07-2018 15:04:34 TOP CARRIER by Lang Benítez [email or web address] <ELECTRONICALLY SIGNED> By: Lang Benítez MD, FAC 05/07/18 1504 0534 0534 Lang Benítez MD, [facility] /EPI
--- NOTE | 2018-05-07 15:05 | EKG ---
[place] [address] ELECTROCARDIOGRAM REPORT Name: DOMINIQUE WEISS Room: [address] ADM IN M.R.#: [id number] Admission: 05/07/18 Attend Phys: Michelle Andrew MD Discharge: Date of : 48 Report #: [id number] THIS REPORT FOR: //name// [facility] Test Date: 2018-05-07 Test Time: 08:49:17 Pat Name: DOMINIQUE THEODORELIVAN Department: Room: [address] Gender: M Photostatic Copy Maker: : 1950 Requested By: Michelle Andrew Order Number: [id number] Reading MD: Lang Benítez Measurements Intervals [place] Rate: 79 P: 21 [place]: 217 QRS: -19 QRSD: 103 T: 56 QT: 423 QTc: 486 Interpretive Statements Sinus rhythm Borderline prolonged [place] interval Borderline left axis deviation Low voltage, precordial leads Abnormal R-wave progression, early transition Borderline prolonged QT interval Electronically Signed On 05-07-2018 15:05:29 RN INTERN by Lang Benítez [email or web address] <ELECTRONICALLY SIGNED> By: Lang Benítez MD, [facility] 05/07/18 1505 0849 0849 Lang Benítez MD, [facility] /EPI
[2018-05-07 16:00] VITALS: BP 127/46
--- NOTE | 2018-05-07 18:22 | NUR ---
VSS.CARDIAC MONITORING IN PLACE WITH NO CHANGES.PT REMAINS ON 3L O2 NC.PT PAIN MANAGED WITH PO MEDICATIONS.IV RIGHT HAND PATENT AND SALINE LOCKED.IV RIGHT AC PATENT AND SALINE LOCKED.PT WORKED WITH PHYSICAL THERAPY.HOURLY ROUNDING COMPLETED FOR PT SAFETY.CALL LIGHT AND FALL PRECAUTIONS IN PLACE.WILL CONTINUE TO MONITOR FOR DURATION OF SHIFT.
[2018-05-07 20:00] VITALS: BP 154/63
[2018-05-08] VITALS: BP 107/47
[2018-05-08 04:00] VITALS: BP 167/56
[2018-05-08 05:24] LABS: HEMATOCRIT 30.9 % (42.0-52.0); HEMOGLOBIN 10.1 gm/dL (14.0-18.0); MCH 25.8 pg (26.0-34.0); MCHC 32.8 g/dL (28.0-37.0); MCV 78.6 fL (80.0-100.0); MPV 6.7 fl. (7.2-11.1); RBC 3.94 mil/uL (4.50-6.00); RDW-CV 16.6 % (10.5-14.5); WBC 5.6 thou/uL (4.0-11.0)
[2018-05-08 05:29] LABS: INR 2.9
[2018-05-08 06:08] LABS: CALCIUM 8.6 mg/dL (8.5-10.1); CREATININE 1.2 mg/dL (0.6-1.3); POTASSIUM 3.4 mmol/L (3.5-5.1)
--- NOTE | 2018-05-08 07:07 | NUR ---
Alert and oriented x 4. He is very short of air with any extertion. He is on 3.5 L n/c, he's up in his chair. He has 2 red spots on his buttocks they are dry looking but not open. He will not lay in bed to get off his buttocks. He was incontinent of loose BM and dressings were changed,foam dressings applied. He has been requesting pain meds for back and legs as soon as he can get them. His home trilogy was brought in. PRN immodium was ordered.
[2018-05-08 08:00] VITALS: BP 154/58
--- NOTE | 2018-05-08 13:59 | EKG ---
[place] [address] ELECTROCARDIOGRAM REPORT Name: DOMINIQUE WEISS Room: [address] ADM IN M.R.#: [id number] Admission: 05/07/18 Attend Phys: Michelle Andrew MD Discharge: Date of : 48 Report #: [id number] THIS REPORT FOR: //name// [facility] Test Date: 2018-05-08 Test Time: 09:13:34 Pat Name: DOMINIQUE WEISS Department: Room: [address] Gender: M Game Engineer: : 1950 Requested By: Lang Benítez Order Number: [id number] Reading MD: Lang Benítez Measurements Intervals [place] Rate: 83 P: 75 ME: 236 QRS: -14 QRSD: 104 T: 45 QT: 419 QTc: 493 Interpretive Statements Sinus rhythm Prolonged ME interval Low voltage, precordial leads Borderline T abnormalities, anterior leads Borderline prolonged QT interval Compared to ECG 05/07/2018 08:49:17 no change Electronically Signed On 05-08-2018 13:59:11 SCHOOL SPEECH THERAPIST by Lang Benítez [email or web address] <ELECTRONICALLY SIGNED> By: Lang Benítez MD, [facility] 05/08/18 1359 09 09 Lang Benítez MD, [facility] /EPI
[2018-05-08 15:53] VITALS: BP 108/38
[2018-05-08 19:30] VITALS: BP 130/43
[2018-05-09] VITALS: BP 109/42
[2018-05-09 04:33] VITALS: BP 111/39
[2018-05-09 05:31] LABS: INR 3.7; PROTIME 37.1 Seconds (9.20-11.50)
--- NOTE | 2018-05-09 06:26 | NUR ---
VITALS WNL. SEE MAR. SEE CHARTING. FALL PRECAUTIONS IN PLACE. HOURLY ROUNDING FOR SAFETY
[2018-05-09 07:45] VITALS: BP 138/62
[2018-05-09] MEDS ORDERED: OXYCODONE HCL 55 MG PO (09:34)
[2018-05-09] MEDS ORDERED: MS CONTIN15 MG PO (09:34)
[2018-05-09] MEDS ORDERED: NORTRIPTYLINE H10 M1 PO (09:34)
[2018-05-09] MEDS ORDERED: PACERONE 200 M200 M1 PO (09:34)
--- NOTE | 2018-05-09 12:02 | NUR ---
SPOKE TO THE PATIENT TO DISCUSS HOME SITUATION, DISCHARGE PLANNING, AND TO INFORM OF THE ROLE OF CM. PATIENT ALERT, ORIENTED, AND INDEPENDENT WITH ADL'S. PATIENT RESIDES AT HOME WITH HIS SPOUSE AND ADULT CHILDREN. PATIENT'S SPOUSE IS ABLE TO ASSIST HIM AT HOME IF NEEDED. PATIENT OWNS A WALKER, CANE, AND W/C, BUT MOSTLY USES THE CANE FOR MOBILITY. PATIENT USES HOME O2 AND TRILOGY PROVIDED BY [facility]. D/C CHEF MANAGER SPOKE TO THE PATIENT ABOUT HH AT D/C AND PATIENT DECLINED STATING 'I LIVE WITH A BUNCH OF [place] THAT CAN HELP ME. I DON'T NEED HH. MY FAMILY CAN HELP ME OUT'. PATIENT TO D/C HOME TODAY WITH TRANSPORT PROVIDED BY FAMILY. CM WILL REMAIN AVAILABLE TO ASSIST AND FOLLOW NEEDED.
[2018-05-09 12:07] VITALS: BP 138/62
[2018-05-09 12:47] VITALS: BP 138/62
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
--- NOTE | 2018-05-09 14:38 | NUR ---
PT IS ALERT AND ORIENTED X 4. DENIES NAUSEA. IV PATENT. PT RECEIVING PO MEDICATIONS FOR BACK PAIN. UP IN RECLINER-DOES NOT SLEEP IN BED. OXYGEN @ 3L/NC. HOURLY ROUNDS MAINTAINED. DISCHARGE INSTRUCTIONS GIVEN WITH PRESCRIPTION MEDICATIONS.IV REMOVED. DECLINED HOME HEALTH. PT LEFT UNIT BY W/C WITH PERSONAL BELONGINGS WITH NURSING STAFF TO LEAVE WITH FAMILY BY PRIVATE CAR.
[2018-05-09 14:47] VITALS: BP 138/62
== END 2018-05-09 13:30 | disposition home or self-care (01) | DRG 552 ==
LOC: M.ERS 21:28 → M.TBA-ER 05-07 00:43 → M.2W 05-07 00:43
PROVIDERS: Internal Medicine Cardiovascular Disease; Physician Assistant; ADMIT Internal Medicine
DX: M54.9 Dorsalgia, unspecified (principal); Z68.42 Body mass index [BMI] 45.0-49.9, adult; F11.23 Opioid dependence with withdrawal; I50.32 Chronic diastolic (congestive) heart failure; I48.2 Chronic atrial fibrillation; E66.01 Morbid (severe) obesity due to excess calories; J44.9 Chronic obstructive pulmonary disease, unspecified; W18.39XA Other fall on same level, initial encounter; I11.0 Hypertensive heart disease with heart failure; E78.5 Hyperlipidemia, unspecified; F32.9 Major depressive disorder, single episode, unspecified; E11.9 Type 2 diabetes mellitus without complications; Z79.899 Other long term (current) drug therapy; Y93.89 Activity, other specified; Y92.89 Other specified places as the place of occurrence of the external cause; Y99.8 Other external cause status; Z87.11 Personal history of peptic ulcer disease; Z90.49 Acquired absence of other specified parts of digestive tract; Z79.84 Long term (current) use of oral hypoglycemic drugs; Z82.49 Family history of ischemic heart disease and other diseases of the circulatory system; Z87.891 Personal history of nicotine dependence

== ENCOUNTER → 2018-08-25 | Outpatient (CLI) | payer MEDICARE ==
[~2018-08-25] MED LIST changes: +ALBUTEROL2.5 MG/31 INH; +NORTRIPTYLINE H10 M1 PO; +PACERONE 200 M200 M1 PO
[2018-08-25 16:24] LABS: ABSOLUTE EOSINOPHILS 0.1 thou/uL (0.0-0.7); ABSOLUTE LYMPHOCYTES 1.1 thou/uL (0.8-5.3); ABSOLUTE MONOCYTES 0.3 thou/uL (0.0-1.2); ABSOLUTE NEUTROPHILS 2.3 thou/uL (1.6-8.1); BASOPHILS 0.4 %; EOSINOPHILS 2.5 %; HEMATOCRIT 29.9 % (42.0-52.0); HEMOGLOBIN 9.6 gm/dL (14.0-18.0); LYMPHOCYTES 29.3 %; MCH 25.7 pg (26.0-34.0); MCHC 32.1 g/dL (28.0-37.0); MCV 80.2 fL (80.0-100.0); MONOCYTES 8.9 %; MPV 5.9 fl. (7.2-11.1); NUCLEATED RBCS 0 /100WBC; PLATELET COUNT* 205 thou/uL (150-400); POLYS 58.9 %; RBC 3.73 mil/uL (4.50-6.00); RDW-CV 17.2 % (10.5-14.5); WBC 3.8 thou/uL (4.0-11.0)
[2018-08-25 16:36] LABS: ALKALINE PHOSPHATASE 77 U/L (46-116); ANION GAP 6 mmol/L (7-16); BUN 23 mg/dL (7-18); CALCIUM 8.5 mg/dL (8.5-10.1); CHLORIDE 103 mmol/L (98-107); CHOLESTEROL 113 mg/dL (<200); CO2 32 mmol/L (21-32); CREATININE 1.2 mg/dL (0.6-1.3); GLUCOSE 121 mg/dL (70-99); HDL CHOLESTEROL 45 mg/dL (>40); LDL CHOLESTEROL 43 mg/dL (<100); POTASSIUM 4.2 mmol/L (3.5-5.1); SERUM ASSESSMENT Clear; SGOT 21 U/L (15-37); SGPT 22 U/L (30-65); SODIUM 141 mmol/L (136-145); TC:HDL 2.5 Ratio (Not establshd); TOTAL BILIRUBIN 0.2 mg/dL (<0.1-1.0); TOTAL PROTEIN 8.4 g/dL (6.4-8.2); TRIGLYCERIDE 127 mg/dL (<150); VLDL 25 mg/dL (<40)
== END ==
LOC: M.LAB 16:01
PROVIDERS: Nurse Practitioner
DX: J90 Pleural effusion, not elsewhere classified (principal); I48.0 Paroxysmal atrial fibrillation; E78.2 Mixed hyperlipidemia; I25.10 Atherosclerotic heart disease of native coronary artery without angina pectoris; I11.0 Hypertensive heart disease with heart failure; I50.32 Chronic diastolic (congestive) heart failure; Z79.899 Other long term (current) drug therapy

== ENCOUNTER 2019-01-06 16:21 | Inpatient (IN) | payer OTHER ==
[~2019-01-06] VITALS: Ht 177.8 cm; Wt 155.0 kg
[2019-01-06 16:22] VITALS: BP 183/142
[2019-01-06 16:53] LABS: ABSOLUTE EOSINOPHILS 0.1 thou/uL (0.0-0.7); ABSOLUTE LYMPHOCYTES 0.7 thou/uL (0.8-5.3); ABSOLUTE MONOCYTES 0.5 thou/uL (0.0-1.2); ABSOLUTE NEUTROPHILS 6.3 thou/uL (1.6-8.1); BASOPHILS 0.3 %; EOSINOPHILS 1.1 %; HEMATOCRIT 29.9 % (42.0-52.0); HEMOGLOBIN 9.4 gm/dL (14.0-18.0); LYMPHOCYTES 9.5 %; MCH 25.5 pg (26.0-34.0); MCHC 31.6 g/dL (28.0-37.0); MCV 80.7 fL (80.0-100.0); MONOCYTES 6.5 %; MPV 6.9 fl. (7.2-11.1); NUCLEATED RBCS 0 /100WBC; PLATELET COUNT* 194 thou/uL (150-400); POLYS 82.6 %; RDW-CV 17.6 % (10.5-14.5); WBC 7.6 thou/uL (4.0-11.0)
[2019-01-06 16:57] LABS: BE 7.7 mmol/L (-2 to +3); pH 7.386 (7.340-7.450)
[2019-01-06 17:01] LABS: ANION GAP 4 mmol/L (7-16); BUN 30 mg/dL (7-18); CALCIUM 8.4 mg/dL (8.5-10.1); CHLORIDE 101 mmol/L (98-107); CO2 35 mmol/L (21-32); CREATININE 1.4 mg/dL (0.6-1.3); GLUCOSE 169 mg/dL (70-99); INR 1.5; POTASSIUM 4.7 mmol/L (3.5-5.1); SODIUM 140 mmol/L (136-145)
[2019-01-06 17:03] LABS: PCO2 58.1 mmHg (35.0-45.0); PO2 212.2 mmHg (75.0-100.0)
[2019-01-06 17:12] LABS: ALKALINE PHOSPHATASE 81 U/L (46-116); NT-PRO BRAIN NAT PEPTIDE 2852 pg/mL (<300); SGOT 15 U/L (15-37); SGPT 16 U/L (30-65); TOTAL BILIRUBIN 0.3 mg/dL (<0.1-1.0); TOTAL PROTEIN 8.7 g/dL (6.4-8.2); TROPONIN-I LEVEL <0.06 ng/mL (<0.06)
[2019-01-06] MEDS ORDERED: POTASSIUM20 PO (17:12)
[2019-01-06 19:38] VITALS: BP 157/87
[2019-01-06] MEDS ORDERED: PACERONE 200 M200 M1 PO (20:11)
[2019-01-06] MEDS ORDERED: LIPITOR80 MG PO (20:12)
[2019-01-06 20:14] VITALS: BP 132/57
[2019-01-06] MEDS ORDERED: KLOR-CON 1010 MEQ PO (20:18)
[2019-01-06] MEDS ORDERED: NEURONTIN 400400 M1 PO (20:23)
[2019-01-06] MEDS ORDERED: REMERON15 MG PO (20:24)
[2019-01-06] MEDS ORDERED: LISINOPRIL20 MG PO (20:26)
[2019-01-06] MEDS ORDERED: ARTIFICIAL TEA1 EAC1 OPHTHALMIC (20:27)
[2019-01-06 21:17] LABS: BE 8.3 mmol/L (-2 to +3); pH 7.337 (7.340-7.450)
[2019-01-06 21:19] LABS: PCO2 68.6 mmHg (35.0-45.0)
[2019-01-06 21:20] LABS: PO2 152.5 mmHg (75.0-100.0)
[2019-01-07 04:00] VITALS: BP 116/45
[2019-01-07 04:32] LABS: BE 6.7 mmol/L (-2 to +3); PO2 115.7 mmHg (75.0-100.0); pH 7.409 (7.340-7.450)
[2019-01-07 04:36] LABS: PCO2 52.1 mmHg (35.0-45.0)
[2019-01-07 04:58] LABS: HEMATOCRIT 26.6 % (42.0-52.0); HEMOGLOBIN 8.3 gm/dL (14.0-18.0); MCH 25.3 pg (26.0-34.0); MCHC 31.3 g/dL (28.0-37.0); MCV 80.6 fL (80.0-100.0); MPV 7.3 fl. (7.2-11.1); NUCLEATED RBCS 0 /100WBC; PLATELET COUNT* 180 thou/uL (150-400); RDW-CV 17.5 % (10.5-14.5); WBC 10.8 thou/uL (4.0-11.0)
[2019-01-07 05:04] LABS: INR 1.4; PROTIME 14.5 Seconds (9.20-11.50)
[2019-01-07 05:08] LABS: CALCIUM 8.3 mg/dL (8.5-10.1); CREATININE 1.4 mg/dL (0.6-1.3); MAGNESIUM 1.5 mg/dL (1.8-2.4); POTASSIUM 4.2 mmol/L (3.5-5.1)
--- NOTE | 2019-01-07 06:02 | NUR ---
PT ADMITTED TO ROOM 211 DURING THIS SHIFT; VSS, ON CONTINUOUS BIPAP, ATRIAL FIB ON THE MONITOR. PT REPORTS OLD SORES ON HIS BUTTOCKS, BUT CANNOT TOLERATE LAYING ON HIS SIDE SO PICTURES CAN BE TAKEN DUE TO HIS CURRENT RESPIRATIORY STATE. HE IS ABLE TO COMMUNICATE HIS NEEDS TO STAFF EFFECTIVELY. CURRENT PAIN MEDICATION REGIMEN HAS BEEN ADEQUATE FOR CONTROLLING HIS PAIN UP TO THIS TIME. PULMONOLOGY CONSULTED; BIPAP ON CONTINUOUSLY OVER NIGHT PER MD ORDERS.
[2019-01-07 06:48] LABS: ABSOLUTE LYMPHOCYTES 0.5 thou/uL (0.8-5.3); ABSOLUTE MONOCYTES 0.2 thou/uL (0.0-1.2); MICROCYTES 1+; PLATELET ESTIMATE ADEQUATE
[2019-01-07 06:49] LABS: HYPOCHROMASIA 2+
[2019-01-07 07:30] VITALS: BP 129/58
[2019-01-07 07:36] LABS: BE 7.9 mmol/L (-2 to +3); PO2 118.1 mmHg (75.0-100.0); pH 7.379 (7.340-7.450)
[2019-01-07 07:39] LABS: PCO2 60.1 mmHg (35.0-45.0)
--- NOTE | 2019-01-07 11:19 | EKG ---
[place] [address] ELECTROCARDIOGRAM REPORT Name: DOMINIQUE WEISS Room: [address] ADM IN .R.#: [id number] Admission: 01/06/19 Attend Phys: Sobia Cooper MD Discharge: Date of : 48 Report #: [id number] THIS REPORT FOR: //name// [facility] ED Test Date: 2019-01-06 Test Time: 16:28:01 Pat Name: DOMINIQUE WEISS Department: Room: [facility] Gender: M Social Media Manager: TERE : 1950 Requested By: Goldy Campos Order Number: [id number] MD: Ming Hurley Measurements Intervals [place] Rate: 101 P: OR: QRS: -6 QRSD: 185 T: 42 QT: 345 QTc: 448 Interpretive Statements Atrial fibrillation Nonspecific intraventricular conduction delay Compared to ECG 05/08/2018 09:13:34 Intraventricular conduction delay now present Sinus rhythm no longer present First degree AV block no longer present T-wave abnormality no longer present Electronically Signed On 01-07-2019 11:19:08 CDT by Ming Hurley [email or web address] <ELECTRONICALLY SIGNED> By: Thor Hurley MD, [facility] 01/07/19 1119 1628 1628 Thor Hurley MD, [facility] /EPI
[2019-01-07 11:53] VITALS: BP 123/61
[2019-01-07] MEDS ORDERED: MS CONTIN15 MG PO (11:55)
[2019-01-07] MEDS ORDERED: OXYCODONE HCL 55 MG PO (11:55)
--- NOTE | 2019-01-07 12:47 | NUR ---
INITIAL ASSESSMENT: Pt evaluated for d/c planning needs. Reviewed chart and spoke with nurse and pt. Pt is alert and oriented. Pt lives in house with spouse, daughter, S-I-L and grandchildren. Pt was independent with ADL's and used walker, cane or w/c for ambulation. Pt has oxygen and trilogy through [facility]. Pt has had [facility] in the past. Pt plans on returning home on d/c from hospital. Pt said he is having trouble paying his co-pay for his trilogy and wonders if [facility] would [facility] trilogy if ordered through them. Will have weekday CM follow up on Wednesday. Will remain available to assist as needed.
[2019-01-07 16:47] VITALS: BP 100/67
[2019-01-07 20:19] VITALS: BP 106/59
[2019-01-08] VITALS: BP 116/49
[2019-01-08 04:00] VITALS: BP 132/95
--- NOTE | 2019-01-08 05:23 | NUR ---
PT IS ABLE TO COMMUNICATE HIS NEEDS TO STAFF EFFECTIVELY. CURRENT PAIN MEDICATION REGIMEN HAS BEEN ADEQUATE FOR CONTROLLING HIS PAIN UP TO THIS TIME. PT NOW WEARING 3L O2 WHILE AWAKE AND HIS HOME TRILOGY WHILE ASLEEP. ABGs LATER THIS MORNING.
[2019-01-08 05:29] LABS: ABSOLUTE LYMPHOCYTES 0.5 thou/uL (0.8-5.3); ABSOLUTE MONOCYTES 0.4 thou/uL (0.0-1.2); ABSOLUTE NEUTROPHILS 8.5 thou/uL (1.6-8.1); BASOPHILS 0.1 %; HEMATOCRIT 26.6 % (42.0-52.0); HEMOGLOBIN 8.4 gm/dL (14.0-18.0); LYMPHOCYTES 4.9 %; MCH 25.3 pg (26.0-34.0); MCHC 31.5 g/dL (28.0-37.0); MCV 80.2 fL (80.0-100.0); MONOCYTES 3.9 %; MPV 7.6 fl. (7.2-11.1); NUCLEATED RBCS 0 /100WBC; PLATELET COUNT* 185 thou/uL (150-400); POLYS 91.1 %; RBC 3.32 mil/uL (4.50-6.00); RDW-CV 17.7 % (10.5-14.5); WBC 9.3 thou/uL (4.0-11.0)
[2019-01-08 05:41] LABS: INR 1.4; PROTIME 14.6 Seconds (9.20-11.50)
[2019-01-08 05:47] LABS: CALCIUM 8.6 mg/dL (8.5-10.1); CREATININE 1.8 mg/dL (0.6-1.3); MAGNESIUM 2.2 mg/dL (1.8-2.4); POTASSIUM 3.8 mmol/L (3.5-5.1)
[2019-01-08 07:30] VITALS: BP 112/55
[2019-01-08 08:02] LABS: BE 4.6 mmol/L (-2 to +3); pH 7.362 (7.340-7.450)
--- NOTE | 2019-01-08 08:10 | CON ---
[address] [address] CONSULTATION Name: DOMINIQUE WEISS Room: [address] IN M.R.#: [id number] Admission: 01/06/19 Attend Phys: Sobia Cooper MD Discharge: Date of : 48 Report #: [id number] THIS REPORT FOR: //name// CC: FAM [facility] Porfirio Filemondenise Cooper MD [place] CLINIC DATE OF SERVICE: 01/07/2019 PULMONARY CONSULTATION ATTENDING PHYSICIAN: Sobia Cooper MD LOCATION: The patient is located in room #211. INDICATIONS FOR CONSULTATION: Acute respiratory failure, severe chronic obstructive pulmonary disease, chronic right pleural effusion. HISTORY OF PRESENT ILLNESS: The patient is a 68-year-old male, current smoker, with shortness of breath for 48-72 hours; had cough, fever, and chills. He had some occasional chest pain, right sided. He is supposed to be on 3 liters of oxygen at night and also with his Trilogy machine at night, I am not sure how compliant he is with that. The patient also takes a fair amount of chronic opioids for chronic pain syndrome. He has had this right pleural effusion tapped several times. There was a thought whether we need to do a right thoracotomy on him and he would not tolerate that and that surgery was refused or even given consideration to talk to the cardiothoracic surgeon. He is very sedentary at home, he does not get up and move around, and he has been on oxygen again 2-3 liters, supposedly taking his breathing treatments. He has not been steroid dependent, p.r.n. Lasix. He has not been intubated as far as I am aware of. ALLERGIES: He has no known medical allergies. PAST MEDICAL HISTORY: He has had severe chronic obstructive pulmonary disease for several years, has had frequent exacerbations since 2017, also has some mild fluid overload and has had morbid obesity with diabetes, peripheral neuropathy, and vasculopathy; he has had opioid withdrawal and chronic pain syndrome; also had partial small bowel obstruction in the past; and again transudative pleural effusion several years ago and again, recurrent effusion with some hypertension and hyperlipidemia; also had atrial fibrillation with chronic anticoagulation. OUTPATIENT MEDICATIONS: He was on amiodarone 200 mg b.i.d., [place] [address] CONSULTATION Name: DOMINIQUE WEISS Room: [address]#: [id number] Admission: 01/06/19 Attend Phys: Sobia Cooper MD Discharge: Date of : 48 Report #: [id number] on nortriptyline 10 mg at bedtime, DuoNeb treatments 4 times a day, oxygen 3 liters at night with Trilogy at night, also, warfarin 5 mg daily for atrial fibrillation, gabapentin 400 mg t.i.d., Remeron 15 mg at bedtime p.r.n., lisinopril 30 mg daily for hypertension, tamsulosin 0.4 mg at bedtime, furosemide, dose is 40 mg once daily, he is currently on intravenous Solu-Medrol 60 mg q.8 hours and then DuoNeb 6 times a day; also on azithromycin 500 mg daily and also trazodone 100 mg at bedtime for other meds; also has had morphine and OxyContin IR for breakthrough pain; he did have one dose of ceftriaxone. FAMILY HISTORY: Mother had breast cancer and some SKIN CARE SPECIALIST issues. SOCIAL HISTORY: The patient lives at home with his in [place], [place]; her name is Shannan; her cellphone number is [phone]. Again, previously a full code blue; and primary care is [facility]. 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 REVIEW OF SYSTEMS: Fourteen-point review of systems was reviewed and negative except for pertinent positives noted in the HPI. PHYSICAL EXAMINATION: GENERAL: Ill-appearing 68-year-old male, no acute distress. He is riding the BiPAP without any distress. He will occasionally open his eyes and look at me. The nurse says he will respond to her commands. VITAL SIGNS: Blood pressure is 130/60 on no pressors; heart rate is 96 and irregular; respirations were 20 over backup rate of 20; and temperature is 36.9 degrees, highest temperature seen was 39 degrees axillary. HEENT: Mucous membranes appear moist. NECK: Supple, without nodes. Redundant neck tissue noted. CHEST: Shows diminished breath sounds in the right lung base with some rhonchi; left chest shows a few rhonchi and expiratory wheeze; no use of accessory muscles. CARDIOVASCULAR: Irregular rate and rhythm with ventricular response in the 90s. ABDOMEN: Soft, without masses or megaly. EXTREMITIES: No calf tenderness. He has some mild cyanosis, chronic venostasis changes, chronic hypertrophied skin, and some brawny edema of 1+. Peripheral pulses are 0 to 1+ on both legs and on radial pulses. NEUROLOGIC: Grossly intact, withdrawal to stimuli, nonfocal. We will follow some commands. LABORATORY DATA: Labs from 01/07/2019 show hemoglobin 8.3, previously 9.4, [facility] [address] [id number] CONSULTATION Name: DOMINIQUE WEISS Room: [address] IN .R.#: [id number] Admission: 01/06/19 Attend Phys: Sobia Cooper MD Discharge: Date of : 48 Report #: [id number] white count is 11,000, normal differential, MCV is 80, and platelets are 180,000; again, normal differential was noted. Sodium is 141, potassium is 4.2, bicarbonate is elevated at 33, BUN is 27, creatinine 1.4, glucose is 203, iron is low at 14, total iron binding capacity is 271, and percent saturation is 5. Troponins are negative. TSH is 0.16. NT-proBNP was 2852, slightly elevated. ABG shows initial pCO2 of 68 with a pH of 7.33 and that was on 45% BiPAP at 12/6 this morning on 35% BiPAP at 16/8 with a backup rate of 20, he has volumes of 6919-7563 mL and good volume, he has not ____ the machine, pO2 was 118, pH 7.38, pCO2 of 60, bicarbonate 35 with sat of 97%, and carboxyhemoglobin was only 0.6. IMAGING: Chest x-ray shows dvoka-ih-xlduvjnz right effusion, not much change from previous films where he had loculated effusion, I am not sure any of this is free flowing; no PFTs on this patient. I have not seen a sleep study on this patient. IMPRESSION: 1. Acute hypercarbic respiratory failure, multifactorial. 2. Severe chronic obstructive pulmonary disease, GOLD level 4, oxygen dependent, steroid dependent, and Trilogy dependent at night. 3. Obesity hypoventilation syndrome. 4. Chronic hypercarbia with acute hypercarbic respiratory failure. 5. Diabetes with neuropathy. 6. Hypertension. PLAN: The patient is still full code blue at this time, may have to revisit that; keep him on the same BiPAP settings; wean his FiO2 as tolerated; keep him on continuous breathing treatments, azithromycin, and nebulizer treatments as well as some steroids. I will follow up his blood gases in the morning. I am not sure as much to do about his right pleural effusion, I do not think it is any worse than the previous one. We will see via either an ultrasound or a CAT scan whether there is some free fluid there to tap. I am not sure it will make much difference with him, but we will see how he progresses in the future; may need full PFTs and a repeat sleep study at some point in time to further document severity of his disease. He is not very active, would not be a good ventilator candidate. We will check with him about advanced directives and durable harris of energy attorney. Again, we also encouraged him to discontinue smoking. Thanks again for allowing us to participate in this man's care. We will follow up along with you. [address] [address] CONSULTATION Name: DOMINIQUE WEISS Room: [address] IN M.R.#: [id number] Admission: 01/06/19 Attend Phys: Sobia Cooper MD Discharge: Date of : 48 Report #: [id number] It has been a 37-minute critical care consult. <ELECTRONICALLY SIGNED> By: Anupam Benedict MD 01/08/19 0810 0904 [id number] Benedict MD /nt
[2019-01-08 08:50] LABS: PCO2 55.1 mmHg (35.0-45.0); PO2 129.2 mmHg (75.0-100.0)
[2019-01-08 12:00] VITALS: BP 118/55
[2019-01-08 16:00] VITALS: BP 112/56
[2019-01-08 20:00] VITALS: BP 128/65
[2019-01-09 04:00] VITALS: BP 138/58
[2019-01-09 04:05] LABS: GLYCOHEMOGLOBIN (HGB A1C) 6.2 % (4.8-5.6)
--- NOTE | 2019-01-09 05:11 | NUR ---
ASSUMED VARE OF PT AFTER REPORT AT 1930. PT A&OX4. VSS. PHYSICAL ASSESSMENT COMPLETED AND CHARTED. PT ON O2 AT 2.5L NC/TRILOGY WHEN SLEEPING. PT TRACING AFIB/ST ON TELE. PT UP WITH ASSIST. PT COMPLAINED OF GENERALIZED BODY PAIN- MEDS GIVEN PER MAR. CALL LIGHT WITHIN REACH. FALL PRECAUTIONS OBSERVED.
[2019-01-09 05:25] LABS: ABSOLUTE LYMPHOCYTES 0.3 thou/uL (0.8-5.3); ABSOLUTE MONOCYTES 0.4 thou/uL (0.0-1.2); ABSOLUTE NEUTROPHILS 7.2 thou/uL (1.6-8.1); BASOPHILS 0.3 %; HEMATOCRIT 25.7 % (42.0-52.0); LYMPHOCYTES 4.1 %; MCH 25.4 pg (26.0-34.0); MCHC 31.3 g/dL (28.0-37.0); MCV 81.3 fL (80.0-100.0); MONOCYTES 4.6 %; MPV 7.4 fl. (7.2-11.1); NUCLEATED RBCS 0 /100WBC; PLATELET COUNT* 182 thou/uL (150-400); RBC 3.16 mil/uL (4.50-6.00); RDW-CV 18.4 % (10.5-14.5); WBC 7.9 thou/uL (4.0-11.0)
[2019-01-09 05:31] LABS: INR 1.9; PROTIME 18.8 Seconds (9.20-11.50)
[2019-01-09 05:34] LABS: CALCIUM 8.5 mg/dL (8.5-10.1); CREATININE 1.5 mg/dL (0.6-1.3); MAGNESIUM 2.1 mg/dL (1.8-2.4); POTASSIUM 4.3 mmol/L (3.5-5.1)
[2019-01-09 07:30] VITALS: BP 134/45
--- NOTE | 2019-01-09 12:42 | NUR ---
Nutrition: Pt admitted with PNA. Consult for poor intake. H/o COPD, DM wwith neuropathy, HTN. CHO controlled diet ordered. BG 200s, albumin 3, BUN 41, cr 1.5. Wt is trending up: 311 to 333#. On steroids. ENCOURAGE GOOD PO INTAKE AT MEALS. ORAL SUPPLEMENTS (GLUCERNA) ARE AVAILABLE IF PT AGREES. Will follow up on po intake, wt trends, need for supplement, labs. Mild risk. 01/14/19.
--- NOTE | 2019-01-09 12:56 | NUR ---
Spoke with anticipate that Pt will be ready to dc tomorrow.
[2019-01-09 19:17] VITALS: BP 144/71
[2019-01-09 20:00] VITALS: BP 141/75
[2019-01-10] VITALS (7 sets, daily range): BP systolic 116–160; BP diastolic 62–87
--- NOTE | 2019-01-10 05:02 | NUR ---
ASSUMED PATIENT CARE AT 1900. PATIENT ALERT AND ORIENTED TIMES FOUR. CHRONIC PAIN, REQUESTED ORAL MEDICATIONS. COMPLIANT WITH O2 AND TRILOGY. HOURLY ROUNDING AND CHEMICAL DEPENDENCY NURSE COMPLETED DOCUMENTED.
[2019-01-10 05:21] LABS: ABSOLUTE LYMPHOCYTES 0.7 thou/uL (0.8-5.3); ABSOLUTE MONOCYTES 0.6 thou/uL (0.0-1.2); ABSOLUTE NEUTROPHILS 5.5 thou/uL (1.6-8.1); BASOPHILS 0.1 %; EOSINOPHILS 0.1 %; HEMATOCRIT 26.6 % (42.0-52.0); HEMOGLOBIN 8.4 gm/dL (14.0-18.0); LYMPHOCYTES 10.8 %; MCH 25.3 pg (26.0-34.0); MCHC 31.7 g/dL (28.0-37.0); MONOCYTES 8.2 %; MPV 7.1 fl. (7.2-11.1); NUCLEATED RBCS 0 /100WBC; PLATELET COUNT* 198 thou/uL (150-400); POLYS 80.8 %; RBC 3.32 mil/uL (4.50-6.00); RDW-CV 18.3 % (10.5-14.5); WBC 6.8 thou/uL (4.0-11.0)
[2019-01-10 05:24] LABS: INR 2.4
[2019-01-10 05:43] LABS: CALCIUM 8.8 mg/dL (8.5-10.1); CREATININE 1.3 mg/dL (0.6-1.3)
[2019-01-10] MEDS ORDERED: LOPRESSOR25 PO ×2 (15:19→15:24)
[2019-01-10] MEDS ORDERED: TRAZODONE HCL100 MG PO (15:20)
[2019-01-10] MEDS ORDERED: LEVAQUIN 750 M750 MG PO (15:21)
[2019-01-10] MEDS ORDERED: TOPROL XL25 MG PO (15:25)
[2019-01-10] MEDS ORDERED: PREDNISONE 20 M20 MG PO (15:33)
--- NOTE | 2019-01-10 16:35 | NUR ---
ASSUMED CARE OF PT AROUND 0730 THIS AM. REFER TO ASSESSMENT. PT HAS ORDERS TO DC HOME POST CT SCAN. CT SCAN COMPLETED THIS AFTERNOON. REFER TO RESULTS. PT REQUIRED SEDATION TO COMPLETE CT SCAN AND IS CURRENTLY TOO SEDATED FOR DISCHARGE. WILL CONTINUE TO REASSESS. NO OTHER CONCERNS AT THIS TIME. CLWR. WCTM.
[2019-01-11] VITALS: BP 127/75
[2019-01-11 04:00] VITALS: BP 145/80
--- NOTE | 2019-01-11 05:45 | NUR ---
PT IS ABLE TO COMMUNICATE HIS NEEDS TO STAFF EFFECTIVELY. CURRENT PAIN MEDICATION REGIMEN HAS BEEN ADEQUATE FOR CONTROLLING HIS PAIN UP TO THIS TIME. PT HAS REFUSED Q2HR TURNS AT TIMES. HE HAS BEEN WEARING HIS TRILOGY AT NIGHT WHILE SLEEPING. POSSIBLE DISCHARGE LATER TODAY.
[2019-01-11 11:12] LABS: URINE BILIRUBIN NEGATIVE (Negative); URINE BLOOD NEGATIVE (Negative); URINE CLARITY CLEAR; URINE COLOR YELLOW; URINE GLUCOSE-RANDOM NEGATIVE (Negative); URINE KETONES NEGATIVE (Negative); URINE LEUKOCYTES-REFLEX NEGATIVE (Negative); URINE NITRITE-REFLEX NEGATIVE (Negative); URINE PROTEIN NEGATIVE (Negative); URINE SPECIFIC GRAVITY <= 1.005 (1.005-1.030); URINE UROBILINOGEN 0.2 E.U./dl (0.2-1.0)
[2019-01-11 13:01] VITALS: BP 106/54
[2019-01-11] MEDS ORDERED: TOPROL XL50 MG PO (13:51)
--- NOTE | 2019-01-11 14:10 | NUR ---
Pt discharging to home today, orders faxed to [facility]. Pt's PCP is Dr Erasmo Barlow. in room and will transport.
--- NOTE | 2019-01-17 09:29 | CON ---
[address] [address] CONSULTATION Name: DOMINIQUE WEISS Room: [address] IN M.R.#: [id number] Admission: 01/06/19 Attend Phys: Sobia Cooper MD Discharge: 01/11/19 Date of : 48 Report #: [id number] THIS REPORT FOR: //name// CC: FAM unknown Porfirio Filemon Sobia Cooper [place] CLINIC DATE OF SERVICE: 01/09/2019 HISTORY OF PRESENT ILLNESS: This is a 68-year-old male patient who was seen by me for tremor. He indicates the tremor started a little more than 1 year ago. It started spontaneously without any trauma. He does not know anything which makes it worse or better. It does appear to be interfering with his daily activity. He indicates that he was holding a glass and it slipped out of his hand and it broke. Since then, his made sure that he uses only plastic and does not use any glass. He has not had any imaging study of his brain. REVIEW OF SYSTEMS: Indicates this patient appeared to have multiple systemic problems. He has a history of COPD and he has worsening of his breathing. He uses CPAP at night. He is morbidly obese. He has a history of multiple transfusions. He thinks his memory is decreasing. He has a history of hypertension. He has multiple spine problems and he indicates that he cannot lie flat. He does have a history of atrial fibrillation. If I understand correctly, he is on chronic anticoagulation. He does have dyslipidemia and he takes atorvastatin for that. He does have some renal problems in the past and he has taken opioids in the past. He says he cannot do a CT scan without getting some sedation. He got that for a CT of the chest without much problem. This was his relevant 14-point review of system. He denies any new ENT, dermatological, hematological, psychiatric, throat, or allergic symptom associated with present symptomatology. He is not nauseous and does not appear to have significant symptom. PAST MEDICAL HISTORY: Positive for COPD. FAMILY HISTORY: Negative for any early age stroke. SOCIAL HISTORY: The patient lives with his . PHYSICAL EXAMINATION: Indicates he is alert, he is responsive, and he can follow simple commands. His speech, concentration, fund of knowledge, and memory are at his baseline. He is not very happy with his memory. Cranial nerve examination appears unremarkable. He has generalized weakness. His position sense is intact, but he indicates it takes him some time to feel it. His reflexes are absent in the lower extremities, but that apparently is his baseline. There is no meningeal sign. Tone is symmetrical on both [place] [address] CONSULTATION Name: DOMINIQUE WEISS Room: [address] IN M.R.#: [id number] Admission: 01/06/19 Attend Phys: Sobia Cooper MD Discharge: 01/11/19 Date of : 48 Report #: [id number] does appear to have respiratory difficulty. Cardiac examinations appear unremarkable. I could not feel his pulses in the lower extremities. He does not have any edema, cyanosis or jaundice. He is morbidly obese. He does not have any thyroid mass. His pulse is 117, blood pressure is 134/45 and temperature is 96.6. LABORATORY DATA: Indicates a low hemoglobin, but his blood sugar is high, although he says he is not diabetic. He has not had any imaging study of the brain. He does appear to have tremor. It looks mostly mixed tremor, but does become better with voluntary movement and at least part of it may be Parkinson tremor. IMPRESSION: This patient may have a mixed tremor. Part of it appeared to essential tremor. It does appear to be interfering with his daily activity. I think it will be desirable to get a CT scan of the head. He said he cannot lie still even for a few minutes. Because of that, I will talk to you tomorrow and see if it is worth doing a CT scan of the head under sedation. If it can be done, we can order a noncontrast CT of the head and I will be inclined to give him Sinemet as a trial. I discussed with him in detail and I discussed the long and short term potential side effects of those medications and he understands that and wants to proceed with this. <ELECTRONICALLY SIGNED> By: Medhat Mckeon MD 01/17/19 0929 1607 [id number] Mckeon MD /nt
== END 2019-01-11 15:17 | disposition home health service (06) | DRG 871 ==
LOC: M.ERS 16:21 → M.2W 17:43 → M.TBA-ER 17:43 → M.2W 19:49
PROVIDERS: Emergency Medicine Emergency Medical Services; Internal Medicine Pulmonary Disease; ADMIT Family Medicine
PROC: 5A09357 Assistance with Respiratory Ventilation, Less than 24 Consecutive Hours, Continuous Positive Airway Pressure (ICD-10-PCS; principal; 2019-01-06)
PROC: 5A09357 Assistance with Respiratory Ventilation, Less than 24 Consecutive Hours, Continuous Positive Airway Pressure (ICD-10-PCS; 2019-01-08)
PROC: 5A09357 Assistance with Respiratory Ventilation, Less than 24 Consecutive Hours, Continuous Positive Airway Pressure (ICD-10-PCS; 2019-01-09)
PROC: 5A09357 Assistance with Respiratory Ventilation, Less than 24 Consecutive Hours, Continuous Positive Airway Pressure (ICD-10-PCS; 2019-01-10)
PROC: 5A09357 Assistance with Respiratory Ventilation, Less than 24 Consecutive Hours, Continuous Positive Airway Pressure (ICD-10-PCS; 2019-01-11)
DX: A41.9 Sepsis, unspecified organism (principal); J96.22 Acute and chronic respiratory failure with hypercapnia; J96.21 Acute and chronic respiratory failure with hypoxia; J18.9 Pneumonia, unspecified organism; J44.1 Chronic obstructive pulmonary disease with (acute) exacerbation; Z68.42 Body mass index [BMI] 45.0-49.9, adult; E66.2 Morbid (severe) obesity with alveolar hypoventilation; I50.32 Chronic diastolic (congestive) heart failure; I13.0 Hypertensive heart and chronic kidney disease with heart failure and stage 1 through stage 4 chronic kidney disease, or unspecified chronic kidney disease; J44.0 Chronic obstructive pulmonary disease with (acute) lower respiratory infection; N18.4 Chronic kidney disease, stage 4 (severe); J98.11 Atelectasis; E78.00 Pure hypercholesterolemia, unspecified; G47.00 Insomnia, unspecified; R65.20 Severe sepsis without septic shock; I48.91 Unspecified atrial fibrillation; E11.22 Type 2 diabetes mellitus with diabetic chronic kidney disease; N40.0 Benign prostatic hyperplasia without lower urinary tract symptoms; D50.9 Iron deficiency anemia, unspecified; E83.42 Hypomagnesemia; E11.42 Type 2 diabetes mellitus with diabetic polyneuropathy; E11.51 Type 2 diabetes mellitus with diabetic peripheral angiopathy without gangrene; H91.93 Unspecified hearing loss, bilateral; M54.9 Dorsalgia, unspecified; G89.29 Other chronic pain; Z90.49 Acquired absence of other specified parts of digestive tract; Z98.1 Arthrodesis status; Z79.01 Long term (current) use of anticoagulants; Z79.51 Long term (current) use of inhaled steroids; Z79.899 Other long term (current) drug therapy; Z99.81 Dependence on supplemental oxygen

== ENCOUNTER 2019-03-17 21:49 | Inpatient (IN) | payer OTHER ==
[~2019-03-17] VITALS: Ht 177.8 cm; Wt 112.0 kg
[~2019-03-17 21:49] MED LIST changes: +ARTIFICIAL TEA1 EAC1 OPHTHALMIC; +KLOR-CON 1010 MEQ PO; +LIPITOR80 MG PO; +LISINOPRIL20 MG PO; +NEURONTIN 400400 M1 PO; +POTASSIUM20 PO; +PREDNISONE 20 M20 MG PO; +REMERON15 MG PO; +TOPROL XL25 MG PO; +TOPROL XL50 MG PO
[2019-03-17 21:52] VITALS: BP 141/64
[2019-03-17 22:52] LABS: ABSOLUTE BASOPHILS 0.1 thou/uL (0.0-0.2); ABSOLUTE EOSINOPHILS 0.1 thou/uL (0.0-0.7); ABSOLUTE LYMPHOCYTES 0.7 thou/uL (0.8-5.3); ABSOLUTE MONOCYTES 0.4 thou/uL (0.0-1.2); ABSOLUTE NEUTROPHILS 4.1 thou/uL (1.6-8.1); HEMATOCRIT 26.1 % (42.0-52.0); HEMOGLOBIN 8.2 gm/dL (14.0-18.0); LYMPHOCYTES 12.6 %; MCH 24.3 pg (26.0-34.0); MCHC 31.3 g/dL (28.0-37.0); MCV 77.4 fL (80.0-100.0); MONOCYTES 7.1 %; MPV 6.6 fl. (7.2-11.1); NUCLEATED RBCS 0 /100WBC; PLATELET COUNT* 247 thou/uL (150-400); POLYS 78.3 %; RBC 3.37 mil/uL (4.50-6.00); RDW-CV 20.1 % (10.5-14.5); WBC 5.2 thou/uL (4.0-11.0)
[2019-03-17 23:04] LABS: CALCIUM 8.8 mg/dL (8.5-10.1); CREATININE 1.3 mg/dL (0.6-1.3); POTASSIUM 4.3 mmol/L (3.5-5.1)
[2019-03-17 23:07] LABS: INR 2.2; PROTIME 21.8 Seconds (9.20-11.50)
[2019-03-17 23:17] LABS: ALBUMIN 2.6 g/dL (3.4-5.0); TOTAL BILIRUBIN 0.4 mg/dL (<0.1-1.0); TOTAL PROTEIN 8.2 g/dL (6.4-8.2)
[2019-03-17 23:49] LABS: URINE BILIRUBIN NEGATIVE (Negative); URINE BLOOD 1+ (Negative); URINE CLARITY CLEAR; URINE COLOR YELLOW; URINE GLUCOSE-RANDOM NEGATIVE (Negative); URINE KETONES NEGATIVE (Negative); URINE LEUKOCYTES-REFLEX NEGATIVE (Negative); URINE NITRITE-REFLEX NEGATIVE (Negative); URINE PROTEIN TRACE (Negative); URINE UROBILINOGEN 0.2 E.U./dl (0.2-1.0)
[2019-03-17 23:55] LABS: BACTERIA-REFLEX 1-9 Few /HPF (None Seen); CASTS None Seen /LPF (None Seen); MUCUS 0-3 Light strn/LPF (None Seen); SQUAMOUS 0-3 Few /LPF (0-3); URINE RBC 3-10 Few /HPF (0-2); URINE WBC-REFLEX None Seen /HPF (0-5)
[2019-03-17 23:56] LABS: CRYSTALS None Seen /LPF (None Seen)
[2019-03-17 23:57] LABS: HYPOCHROMASIA 1+
[2019-03-17 23:58] LABS: ANISOCYTOSIS 1+; POIKILOCYTOSIS 1+; POLYCHROMASIA 1+
[2019-03-18] VITALS (7 sets, daily range): BP systolic 116–141; BP diastolic 56–81
--- NOTE | 2019-03-18 07:45 | NUR ---
PT RECIEVED FROM ED IN ROOM 231. C/O PAIN, MEDICATION GIVEN PER EMAR. ALERT AND ORIENTED X4. SAT MAINTAINED IN O2. CALL LIGHT WITHIN REACH AND BED IN LOW POSITION. PT HAS SORE ON HIS BOTTOM, HAS DIFFICULTY TURNING, PICTURES TAKEN AT THE BEST OF THE ABILITY OF THIS NURSE, WOUND NURSE CONSULTED. HOURLY ROUNDING DONE FOR PT SAFETY.
--- NOTE | 2019-03-18 12:07 | NUR ---
ASSUMED PT CARE REPORT RECEIVED FROM NURSE. PT IS AOX4, SINUS TACHY ON HEAD START COORDINATOR. VSS. SEE CHART. ON 3 1/2 L NC. O2 SATURATION IS 100%. AMNIODERONE GIVEN ORDERED. PT COMPLAINS OF PAIN. OXY GIVEN. 2000C FLUID. OUTPUT CHARTED. RESTRICTION. RED BOTTOM. BARRIER CREAM APPLIED. PT HAD A BOWEL MOVEMENT. OUT OF BED TO CHAIR. PT USES URINAL. STRICT I&O. CALL LIGHT AT REACH. WILL CONTINUE TO MONITOR
--- NOTE | 2019-03-18 17:44 | NUR ---
pt complains of urinary urgency and coughing spell after swallowing. dr santana about UA result for possible uti and suggested to order speech therapy for swallowing evaluation. will await for call back
[2019-03-19 00:23] LABS: INFLUENZA A ANTIGEN Negative (Negative); INFLUENZA B ANTIGEN Negative (Negative)
[2019-03-19 01:22] VITALS: BP 120/63
[2019-03-19 04:00] VITALS: BP 103/52
[2019-03-19 04:48] LABS: HEMATOCRIT 24.8 % (42.0-52.0); HEMOGLOBIN 7.7 gm/dL (14.0-18.0); MCV 77.5 fL (80.0-100.0); MPV 6.8 fl. (7.2-11.1); RBC 3.2 mil/uL (4.50-6.00); RDW-CV 19.9 % (10.5-14.5)
[2019-03-19 05:00] VITALS: BP 114/62
[2019-03-19 05:03] LABS: INR 2.2; PROTIME 22.2 Seconds (9.20-11.50)
[2019-03-19 05:15] LABS: CALCIUM 8.9 mg/dL (8.5-10.1); CREATININE 1.3 mg/dL (0.6-1.3); MAGNESIUM 1.9 mg/dL (1.8-2.4)
[2019-03-19 08:00] VITALS: BP 105/61
--- NOTE | 2019-03-19 08:09 | NUR ---
PT CARE ASSUMED AT 1930. SAT MAINTAINED IN O2 AND TRILOGY. PT ON AMIO DRIP. CALL LIGHT WITHIN REACH AND BED IN LOW POSITION. C/O PAIN, MEDICATIOIN GIVEN PER EMAR. HOURLY ROUNDING DONE FOR PT SAFETY.
--- NOTE | 2019-03-19 09:33 | NUR ---
ASSUMED PT CARE REPORT RECEIVED FROM NURSE. PT IS AOX4, TRACING AFIB ON CEREAL MILLER. ON 3 L NC. O2 SATURATION IS 95%. UP TO CHAIR. AMIODERONE DRIP HANGED. ZOSYN INFUSING THROUGH RIGHT WRIST. PT USES URINAL. HAD A BOWEL MOVEMENT. WOUND PICTURE TAKEN, OPTIFOAM DRESSING APPLIED. VSS. 2 L FLUID RESTRICTION. WILL CONTINUE TO MONITOR PT
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
--- NOTE | 2019-03-19 14:27 | EKG ---
[place] [address] ELECTROCARDIOGRAM REPORT Name: DOMINIQUE WEISS Room: [address] ADM IN .R.#: [id number] Admission: 03/18/19 Attend Phys: Amy Kerr Discharge: Date of : 48 Report #: [id number] THIS REPORT FOR: //name// [facility] ED Test Date: 2019-03-17 Test Time: 22:53:28 Pat Name: DOMINIQUE WEISS Department: Room: [facility] Gender: M Manager Of Engineering: : 1950 Requested By: Georgina Burton Order Number: [id number] MD: Porfirio Colbert Measurements Intervals [place] Rate: 121 P: IN: QRS: -2 QRSD: 95 T: 34 QT: 331 QTc: 470 Interpretive Statements Atrial fibrillation Ventricular premature complex Low voltage, precordial leads Compared to ECG 01/06/2019 16:28:01 Ventricular premature complex(es) now present Low QRS voltage now present Intraventricular conduction delay no longer present Electronically Signed On 03-19-2019 14:27:31 GEOSPATIAL INFORMATION TECHNOLOGIST by Porfirio Colbert [email or web address] <ELECTRONICALLY SIGNED> By: Porfirio Colbert MD, FACC 03/19/19 1427 2253 2253 Porfirio Colbert MD, FAC /EPI
--- NOTE | 2019-03-19 14:28 | EKG ---
[place] [address] ELECTROCARDIOGRAM REPORT Name: DOMINIQUE WEISS Room: [address] ADM IN .R.#: [id number] Admission: 03/18/19 Attend Phys: Amy Kerr Discharge: Date of : 48 Report #: [id number] THIS REPORT FOR: //name// [facility] ED Test Date: 2019-03-18 Test Time: 02:01:12 Pat Name: DOMINIQUE ABHISHEK Department: Room: [facility] Gender: M Corn Popper: : 1950 Requested By: Georgina Burton Order Number: [id number] MD: Porfirio Colbert Measurements Intervals [place] Rate: 120 P: 0 PA: 120 QRS: -11 QRSD: 106 T: -4 QT: 320 QTc: 453 Interpretive Statements Atrial flutter with 21 conduction Ventricular premature complex Inferior infarct, old Compared to ECG 01/06/2019 16:28:01 Ventricular premature complex(es) now present Ventricular escape complex(es) now present Myocardial infarct finding now present Intraventricular conduction delay no longer present Electronically Signed On 03-19-2019 14:28:42 MANAGER INTEL by Porfirio Colbert [email or web address] <ELECTRONICALLY SIGNED> By: Porfirio Colbert MD, FACC 03/19/19 1428 0 0 Porfirio Colbert MD, FACC /EPI
--- NOTE | 2019-03-19 14:33 | EKG ---
[place] [address] ELECTROCARDIOGRAM REPORT Name: DOMINIQUE WEISS Room: [address] ADM IN M.R.#: [id number] Admission: 03/18/19 Attend Phys: Amy Kerr Discharge: Date of : 48 Report #: [id number] THIS REPORT FOR: //name// [facility] Test Date: 2019-03-18 Test Time: 20:51:16 Pat Name: DOMINIQUE THEODORELIVAN Department: Room: [address] Gender: M Check Weigher: JY : 1950 Requested By: Porfirio Colbert Order Number: [id number] Emily MD: Porfirio Colbert Measurements Intervals [place] Rate: 100 P: [place]: QRS: -10 QRSD: 94 T: 28 QT: 393 QTc: 507 Interpretive Statements Atrial flutter Low voltage, precordial leads Consider anterior infarct Prolonged QT interval Compared to ECG 01/06/2019 16:28:01 Low QRS voltage now present Myocardial infarct finding now present Prolonged QT interval now present Atrial fibrillation no longer present Intraventricular conduction delay no longer present Electronically Signed On 03-19-2019 14:33:29 CARAMEL CANDY MAKER HELPER by Porfirio Colbert [email or web address] <ELECTRONICALLY SIGNED> By: Porfirio Colbert MD, FACC 03/19/19 1433 50 50 Porfirio Colbert MD, FACC /EPI
[2019-03-19 17:40] VITALS: BP 104/50
--- NOTE | 2019-03-19 18:42 | NUR ---
PT REMAINS AFIB ON LEAN SPECIALIST FOR THIS SHIFT. HEART RATE CONTROLLED BETWEN 110 AND 120
[2019-03-19 20:00] VITALS: BP 100/50
[2019-03-20] VITALS (11 sets, daily range): BP systolic 14–127; BP diastolic 36–79
[2019-03-20 04:50] LABS: INR 2.5; PROTIME 24.5 Seconds (9.20-11.50)
[2019-03-20 04:56] LABS: CALCIUM 8.6 mg/dL (8.5-10.1); CREATININE 1.6 mg/dL (0.6-1.3); MAGNESIUM 1.8 mg/dL (1.8-2.4); POTASSIUM 3.7 mmol/L (3.5-5.1)
--- NOTE | 2019-03-20 07:50 | NUR ---
PT CARE ASSUMED AT 1930. SAT MAINTAINED IN O2 AND TRILOGY. ALERT AND ORIENTED X4. CALL LIGHT WITHIN REACH AND BED IN LOW POSITIOIN. C/O PAIN, MEDICATION GIVEN PER EMAR. HOURLY ROUNDING DONE FOR PT SAFETY.
--- NOTE | 2019-03-20 11:52 | NUR ---
ASSUMED CARE OF PT THIS AM AROUND 0715- HAT STEAMER IN PLACE ORDERED, TRACING A-FIB/FLATTER/RATE CONTROLLED- UPON ASSESSMENT PT NOTED TO BE RESTING IN BED SIDE RECLINER, LEGS ELEVATED- PT A&O X4- CONTINENT OF BOWEL AND BLADDER- SBA WITH TRANSFERS- JULIAN LUNG CLEAR TO ASCULTATION, ALL OTHERS DIMINISHED, DYSPNEA NOTED ON EXERTION- VSS, O2 SAT 100% ON 3L VIA NC- ABD SOFT/OBESE/NON-TENDER, BS X4 QUADS- LAST BM REPORTED 03/19/19, SCHEDULED SENNA GIVEN THIS AM- GOOD PO INTAKE NOTED THIS AM WITH BREAKFAST, BS MONITORED ORDERED- IV NOTED TO LEFT AC INTACT,IV AMMIO INFUSSING PRESCIBED- IVF BOLUS OF 500CC ORDERED THIS AM- 2L F/R IN PLACE INDICATED- BARRIOR CREAM TO BOTTOM R/T EXCORATION-+1 BLE EDEMA NOTED WITH DRYNESS/DERMATITIS- PT RATES GENERALIZED PAIN 02/23, SCHEDULED MORPHINE GIVEN THIS AM PRESCRIBED-CALL LIGHT AND PERSONAL BELONGINGS WITH IN REACH- HOURLY ROUNDS IN PLACE R/T SAFETY/NEEDS- ALL NEEDS MET AT THIS TIME-WCTM
--- NOTE | 2019-03-20 12:04 | EKG ---
[place] [address] ELECTROCARDIOGRAM REPORT Name: DOMINIQUE WEISS Room: [address] ADM IN M.R.#: [id number] Admission: 03/18/19 Attend Phys: Amy Kerr Discharge: Date of : 48 Report #: [id number] THIS REPORT FOR: //name// [facility] Test Date: 2019-03-18 Test Time: 10:53:06 Pat Name: DOMINIQUE THEODORELIVAN Department: Room: [address] Gender: M Cream Beater: 1886 : 1950 Requested By: Teodoro Estrada Order Number: [id number] Emily MD: Luis Ellis Measurements Intervals [place] Rate: 116 P: 106 GA: 136 QRS: -29 QRSD: 76 T: -77 QT: 456 QTc: 634 Interpretive Statements Sinus tachycardia Inferior infarct, age indeterminate Consider anterolateral infarct Prolonged QT interval Baseline wander in lead(s) II,III,aVR,aVL,aVF Compared to ECG 03/18/2019 02:01:12 Prolonged QT interval now present Atrial flutter no longer present Ventricular premature complex(es) no longer present Myocardial infarct finding still present Electronically Signed On 03-20-2019 12:04:17 LEAD SCIENTIST by Luis Ellis [email or web address] <ELECTRONICALLY SIGNED> By: Luis Ellis MD, [facility] 03/20/19 1204 1053 1053 Luis Ellis MD, [facility] /EPI
--- NOTE | 2019-03-20 15:21 | NUR ---
WOUND CARE NOTE: CONSULT RECEIVED FOR WOUND ON BOTTOM PATIENT PRESENTS WITH PARTIAL THICKNESS SKIN BREAKDOWN TO THE RIGHT, MEDIAL BUTTOCK. MULTIPLE DRY, INTACT SCABS. APPLIED Z-GUARD. LEFT DISTAL BUTTOCK: PARTIAL THICKNESS BREAKDOWN MEASURING 0.8X0.8X0.2. MOIST, RED WOUND BED. TENDER TO TOUCH. APPLIED Z-GUARD. BELIEVE THESE ARE RELATED TO PATIENT SCOOTING IN HIS CHAIR, CAUSING FRICTION INJURIES. RECOMMEND WAFFLE CUSHION WHEN IN CHAIR Z-GUARD BARRIER OINTMENT BID AND PRN TURN Q2 HOURS ENCOURAGE PATIENT TO SHIFT WEIGHT WHEN IN CHAIR.
--- NOTE | 2019-03-20 15:40 | 2DMMODE ---
[place] [address] 2 D/M-MODE ECHOCARDIOGRAM Name: DOMINIQUE WEISS Room: [address] IN [facility]#: [id number] Admission: 03/18/19 Attend Phys: eTodoro Estrada Discharge: Date of : 48 Date of Service: 03/20/19 1540 Report #: [id number] THIS REPORT FOR: //name// APPROVED REPORT Study performed: 03/20/2019 11:12:14 EXAM: Comprehensive 2D, Doppler, and color-flow Echocardiogram Patient Location: In-Patient Room #: 231 BSA: 2.28 HR: 118 bpm BP: 106/57 mmHg Other Information Study Quality: Fair Indications Atrial Fibrillation 2D Dimensions IVSd: 12.09 (7-11mm) LVOT Diam: 21.39 (18-24mm) LVDd: 48.23 mm PWd: 11.77 (7-11mm) Ascending Ao: 32.00 (22-36mm) LVDs: 37.08 (25-40mm) Aortic Root: 28.73 mm Volumes Left Atrial Volume (Systole) LA ESV Index: 29.40 mL/m2 Aortic Valve AoV Peak Moises.: 2.13 m/s AO Peak Gr.: 18.19 mmHg LVOT Max P.27 mmHg AO Mean Gr.: 10.84 mmHg LVOT Mean P.73 mmHg LVOT Max V: 0.56 m/s AO V2 VTI: 39.63 cm LVOT Mean V: 0.40 m/s ROYAL (VTI): 1.05 cm2 LVOT V1 VTI: 11.60 cm Mitral Valve MV Decel. Time: 140.89 ms MV PHT: 40.86 ms MVA (PHT): 5.38 [place]2 [place] [address] 2 D/M-MODE ECHOCARDIOGRAM Name: DOMINIQUE WEISS Room: [address] IN [facility]#: [id number] Admission: 03/18/19 Attend Phys: Teodoro Estrada Discharge: Date of : 48 Date of Service: 03/20/19 1540 Report #: [id number] TDI Medial E' Moises.: 0.08 m/s Lateral E' Moises.: 0.11 m/s Pulmonary Valve PV Peak Moises.: 0.98 m/s PV Peak Gr.: 3.85 mmHg Left Ventricle The left ventricle is normal size. There is normal LV segmental wall motion. There is normal left ventricular wall thickness. Left ventricular systolic function is normal. The left ventricular ejection fraction is within the normal range. LVEF is 60-65%. Right Ventricle The right ventricle is normal size. The right ventricular systolic function is normal. Atria The left atrium size is normal. The right atrium size is normal. Aortic Valve Aortic valve is mildly calcified. No aortic regurgitation is present. Mild aortic stenosis. Mitral Valve The mitral valve is normal in structure. There is no mitral valve regurgitation noted. No evidence of mitral valve stenosis. Tricuspid Valve The tricuspid valve is normal in structure. There is no tricuspid valve regurgitation noted. Pulmonic Valve The pulmonary valve is normal in structure. There is no pulmonic valvular regurgitation. Great Vessels The aortic root is normal in size. IVC is normal in size and collapses >50% with inspiration. Pericardium There is no pericardial effusion. <Conclusion> The left [place] [address] 2 D/M-MODE ECHOCARDIOGRAM Name: DOMINIQUE WEISS Room: [address] IN .R.#: [id number] Admission: 03/18/19 Attend Phys: Teodoro Estrada Discharge: Date of : 48 Date of Service: 03/20/19 1540 Report #: [id number] There is normal left ventricular wall thickness. Left ventricular systolic function is normal. The left ventricular ejection fraction is within the normal range. LVEF is 60-65%. The right ventricle is normal size. The left atrium size is normal. Aortic valve is mildly calcified. No aortic regurgitation is present. Mild aortic stenosis. The mitral valve is normal in structure. The tricuspid valve is normal in structure. IVC is normal in size and collapses >50% with inspiration. There is no pericardial effusion. There is normal LV segmental wall motion. <ELECTRONICALLY SIGNED> By: Luis Ellis MD, [facility] 03/20/19 1540 1540 1540 Luis Ellis MD, FACC /INF
--- NOTE | 2019-03-20 15:43 | NUR ---
Nutrition: Consult for wt change. Per 28msectech, wt is down ~50#, however, pt stated he has only lost ~12#, which he was trying to lose. He stated he has never dropped below 300#, but that is his goal. Ulcer on tailbone - RD ordered unflavored Bryan BID, which pt agreed to. He stated he follows a low Na, no sugar diet at home. He received breathing TXs. He is on daily wts and fluid restrictions. Labs: alb 2.6, prealb 13.7, BG 172. COPD, OBE, CKD, CHF, preDM. Consider Mild risk. Will f/u on labs, wt, po intake, supplement intake 03/27/19.
[2019-03-21] VITALS (7 sets, daily range): BP systolic 99–136; BP diastolic 41–60
[2019-03-21 05:45] LABS: HEMATOCRIT 25.4 % (42.0-52.0); HEMOGLOBIN 7.9 gm/dL (14.0-18.0); MCH 24.5 pg (26.0-34.0); MCHC 31.2 g/dL (28.0-37.0); MCV 78.4 fL (80.0-100.0); MPV 6.5 fl. (7.2-11.1); RBC 3.25 mil/uL (4.50-6.00); RDW-CV 20.1 % (10.5-14.5); WBC 4.8 thou/uL (4.0-11.0)
[2019-03-21 05:46] LABS: CALCIUM 8.7 mg/dL (8.5-10.1); CREATININE 1.6 mg/dL (0.6-1.3); MAGNESIUM 1.9 mg/dL (1.8-2.4); POTASSIUM 3.9 mmol/L (3.5-5.1)
[2019-03-21 05:49] LABS: INR 2.8; PROTIME 27.2 Seconds (9.20-11.50)
--- NOTE | 2019-03-21 05:51 | NUR ---
PT CARE ASSUMED AT 1930. SAT MAINTAINED IN O2 AND TRILOGY. PT BP ONTHE SOFTER
--- NOTE | 2019-03-21 06:01 | NUR ---
PT CARE ASSUMED AT 1930. SAT MAINTAINED IN O2 AND TRILOGY. ALERT AND ORIENTED X4. PT BP RUNNING ON THE SOFTER SIDE. C/O PAIN, MEDICATION GIVEN PER EMAR. DENIES SOB. CALL LIGHT WITHIN REACH AND BED IN LOW POSITION. HOURLY ROUNDING DONE FOR PT SAFETY.
[2019-03-21] MEDS ORDERED: DOK PLUS TABLE1 EACH PO (11:38)
[2019-03-21] MEDS ORDERED: LEVALBUTER1.25 MG/0. INH (11:38)
[2019-03-21] MEDS ORDERED: PACERONE 200 M200 M1 PO (11:38)
[2019-03-21] MEDS ORDERED: PULMICORT0.5 MG/2 M INH (11:38)
--- NOTE | 2019-03-21 13:38 | NUR ---
ASSUMED CARE OF PATIENT THIS AM AT 0730. PATIENT IS ALERT AND ORIENTED X 4. HE HAS BEEN UP IN THE RECLINER MOST OF THE DAY. TELE SHOWS SINUS BASSEM WITH 1DAVB. PATIENT C/O CONTINOUS GENERALIZED PAIN. MEDICATED FOR PAIN WITH ORDERED MEDICATIONS. PATIENT HAS BEEN UP TO THE BSC FOR BM X 2. O2 SATS 99 TO 100% ON 3 LITERS. O2 DECREASED TO 2 LITERS. WILL CONTINUE TO MONITOR.
--- NOTE | 2019-03-21 16:19 | NUR ---
RECOMMEND SKILLED ST SERVICES 2-3X/WK FOR 12 WEEKS FOR DYSPHAGIA TX, INCLUDING VITAL STIM AND REPEAT VIDEO SWALLOW STUDIES, IN THE OUTPATIENT SETTING HERE AT [facility]. A DOCTOR'S ORDER THAT IS SENT TO [facility] [place] OUTPATIENT THERAPY IS NECESSARY TO INITIATE THERAPY. THANK YOU.
[2019-03-22 00:37] VITALS: BP 119/46
[2019-03-22 03:23] VITALS: BP 127/57
[2019-03-22 05:58] LABS: INR 3.4; PROTIME 32.9 Seconds (9.20-11.50)
--- NOTE | 2019-03-22 05:58 | NUR ---
PT CARE ASSUMED AT 1930. SAT MAINTAINED IN O2 AND TRILOGY AT NIGHT. ALERT AND ORIENTED X4. CALL LIGHT WITHIN REACH AND BED IN LOW POSITION. C/O PAIN, MEDICATION GIVEN PER EMAR. HOURLY ROUNDING DONR FOR PT SAFETY.
[2019-03-22 08:00] VITALS: BP 123/39
[2019-03-22 09:39] VITALS: BP 123/39
[2019-03-22] MEDS ORDERED: PACERONE 200 M200 M1 PO (09:46)
--- NOTE | 2019-03-22 12:42 | NUR ---
ASSUMED PT CARE REPORT RECEIVED FROM NURSE. PT IS AOX4 SR 1ST AV BLOCK ON ELECTRONIC COMPONENT PROCESSOR. ON 3 L NC. P2 SATURATION 100%. VSS. MEDICINES GIVEN ORDERED. DISCHARGE ORDERED, DISCHARGE INSTRUCTIONS GIVEN TO PT. AMIODERONE SCRIPT WAS SENT TO PT PHARMACY PER MEAT SMOKER. F/U APPNT WITH CARDIAC NURSE SCHEDULED FOR THE March. SPEECH THERAPY SCRIPT GIVEN TO PT FOR F/U VISIT. PT LEFT FLOOR ACCOMPANIED BY VOLUNTEER AND ON WHEELCHAIR
--- NOTE | 2019-03-22 12:45 | NUR ---
HEART MONITOR RETRIEVED AND IV LINE REMOVED
== END 2019-03-22 12:06 | disposition home or self-care (01) | DRG 291 ==
LOC: M.ERS 21:49 → M.2W 03-18 01:35 → M.TBA-ER 03-18 01:35 → M.2W 03-18 02:45
PROVIDERS: Emergency Medicine; Internal Medicine; ADMIT Internal Medicine
PROC: 5A2204Z Restoration of Cardiac Rhythm, Single (ICD-10-PCS; principal; 2019-03-21)
PROC: 5A09357 Assistance with Respiratory Ventilation, Less than 24 Consecutive Hours, Continuous Positive Airway Pressure (ICD-10-PCS; principal; 2019-03-21)
PROC: 5A09357 Assistance with Respiratory Ventilation, Less than 24 Consecutive Hours, Continuous Positive Airway Pressure (ICD-10-PCS; 2019-03-22)
DX: I13.0 Hypertensive heart and chronic kidney disease with heart failure and stage 1 through stage 4 chronic kidney disease, or unspecified chronic kidney disease (principal); I50.33 Acute on chronic diastolic (congestive) heart failure; J96.21 Acute and chronic respiratory failure with hypoxia; J69.0 Pneumonitis due to inhalation of food and vomit; J91.8 Pleural effusion in other conditions classified elsewhere; D68.59 Other primary thrombophilia; I48.92 Unspecified atrial flutter; N18.3 Chronic kidney disease, stage 3 (moderate); I48.0 Paroxysmal atrial fibrillation; E78.00 Pure hypercholesterolemia, unspecified; E66.01 Morbid (severe) obesity due to excess calories; G89.29 Other chronic pain; G62.9 Polyneuropathy, unspecified; R73.03 Prediabetes; K59.09 Other constipation; R13.10 Dysphagia, unspecified; R00.0 Tachycardia, unspecified; T48.6X5A Adverse effect of antiasthmatics, initial encounter; Z68.35 Body mass index [BMI] 35.0-35.9, adult; Z90.49 Acquired absence of other specified parts of digestive tract; Z82.49 Family history of ischemic heart disease and other diseases of the circulatory system; Z87.891 Personal history of nicotine dependence; Z79.891 Long term (current) use of opiate analgesic; Z23 Encounter for immunization

== ENCOUNTER 2019-08-30 11:39 | Inpatient (IN) | payer OTHER ==
[~2019-08-30] VITALS: Ht 180.3 cm; Wt 125.4 kg
--- NOTE | ~2019-08-30 | PROC ---
[address] [address] PROCEDURE REPORT Name: DOMINIQUE WEISS Room: [place] [address] ADM IN M.R.#: [id number] Admission: 08/30/19 Attend Phys: Salvador Hernandez MD Discharge: Date of : 48 Report #: [id number] THIS REPORT FOR: //name// cc: Erasmo Barlow Russell J. DO ~ THIS REPORT FOR: //name// For GI report, please see the Provation report in Perceptive 7 content. By: 1037Medical Records Staff [facility] /JUAN JOSE
[~2019-08-30 11:39] MED LIST changes: +DOK PLUS TABLE1 EACH PO; +PULMICORT0.5 MG/2 M INH
[2019-08-30 12:26] LABS: ABSOLUTE MONOCYTES 0.4 thou/uL (0.0-1.2); ABSOLUTE NEUTROPHILS 4.3 thou/uL (1.6-8.1); BASOPHILS 0.5 %; EOSINOPHILS 0.9 %; HEMATOCRIT 21.7 % (42.0-52.0); LYMPHOCYTES 17.6 %; MCH 23.8 pg (26.0-34.0); MCHC 31.9 g/dL (28.0-37.0); MCV 74.7 fL (80.0-100.0); MONOCYTES 6.2 %; MPV 6.6 fl. (7.2-11.1); NUCLEATED RBCS 0 /100WBC; PLATELET COUNT* 268 thou/uL (150-400); POLYS 74.8 %; RDW-CV 17.9 % (10.5-14.5); WBC 5.7 thou/uL (4.0-11.0)
[2019-08-30 12:28] LABS: HEMOGLOBIN 6.9 gm/dL (14.0-18.0)
[2019-08-30 12:39] LABS: ANION GAP 2 mmol/L (7-16); BUN 38 mg/dL (7-18); CALCIUM 7.9 mg/dL (8.5-10.1); CHLORIDE 99 mmol/L (98-107); CO2 36 mmol/L (21-32); CREATININE 1.7 mg/dL (0.6-1.3); GLUCOSE 125 mg/dL (70-99); POTASSIUM 4.7 mmol/L (3.5-5.1); SODIUM 137 mmol/L (136-145)
[2019-08-30 12:40] LABS: APTT 43.4 Seconds (25.0-31.3); INR 2.7; PROTIME 26.6 Seconds (9.20-11.50)
[2019-08-30 12:52] LABS: ALBUMIN 2.4 g/dL (3.4-5.0); ALKALINE PHOSPHATASE 114 U/L (46-116); CK-MB MASS < 0.5 ng/mL (<0.5-3.6); LIPASE 49 U/L (73-393); MAGNESIUM 1.8 mg/dL (1.8-2.4); NT-PRO BRAIN NAT PEPTIDE 7056 pg/mL (<300); SGOT 37 U/L (15-37); SGPT 13 U/L (30-65); TOTAL BILIRUBIN 0.3 mg/dL (<0.1-1.0); TOTAL PROTEIN 8.9 g/dL (6.4-8.2)
[2019-08-30 14:55] VITALS: BP 127/60
[2019-08-30 15:30] VITALS: BP 111/70
--- NOTE | 2019-08-30 15:30 | NUR ---
PT TO ROOM 109 VIA CART. PT REQUESTS TO SIT IN CHAIR. SR WITH 1ST AVB ON MONITOR. CALL LIGHT WITHIN REACH. PT REPORTS CHRONIC PAIN CONTROLLED. PT EDUCATED ON ENHANCED PRECAUTIONS
--- NOTE | 2019-08-30 16:54 | EKG ---
[place] [address] ELECTROCARDIOGRAM REPORT Name: DOMINIQUE WEISS Room: [address] ADM IN M.R.#: [id number] Admission: 08/30/19 Attend Phys: Salvador Hernandez, Discharge: Date of : 48 Date of Service: 08/30/19 1149 Report #: [id number] THIS REPORT FOR: //name// [facility] ED Test Date: 2019-08-30 Test Time: 11:49:53 Pat Name: DOMINIQUE THEODORELIVAN Department: Room: [facility] Gender: M Scientific Editor: anamaria : 1950 Requested By: Rashaad Wadsworth Order Number: [id number] MD: Luis Ellis Measurements Intervals [place] Rate: 87 P: [place]: QRS: -17 QRSD: 106 T: 102 QT: 393 QTc: 473 Interpretive Statements Sinus rhythm with first degree AV block Borderline left axis deviation Low voltage, precordial leads Abnormal R-wave progression, early transition Nonspecific T abnormalities, lateral leads Compared to ECG 03/18/2019 20:51:16 T-wave abnormality now present Atrial flutter no longer present Myocardial infarct finding no longer present Prolonged QT interval no longer present Electronically Signed On 08-30-2019 16:52:43 CDT by Luis Ellis [email or web address] <ELECTRONICALLY SIGNED> By: Luis Ellis MD, [facility] 08/30/19 1652 1149 1149 Luis Ellis MD, [facility] /EPI
[2019-08-30 17:16] VITALS: BP 111/32; BP 114/45; BP 114/65; BP 123/50; BP 139/51
[2019-08-30 17:31] LABS: INFLUENZA A ANTIGEN Negative (Negative); INFLUENZA B ANTIGEN Negative (Negative)
[2019-08-30 18:37] LABS: URINE BILIRUBIN NEGATIVE (Negative); URINE BLOOD TRACE (Negative); URINE CLARITY CLEAR; URINE COLOR YELLOW; URINE GLUCOSE-RANDOM NEGATIVE (Negative); URINE KETONES NEGATIVE (Negative); URINE LEUKOCYTES-REFLEX NEGATIVE (Negative); URINE NITRITE-REFLEX NEGATIVE (Negative); URINE PROTEIN NEGATIVE (Negative)
--- NOTE | 2019-08-30 18:47 | NUR ---
PT TO UNIT THIS AFTERNOON. PT IN ENHANCED PRECAUTIONS FOR POSSIBLE COVID 19. NSR ON MONITOR. PT IN CHAIR MOST OF SHIFT. BLOOD TRANSFUSION THIS EVENING. VOIDING PER URINAL. O2@4L NC
[2019-08-30 19:27] LABS: % SATURATION 15 % (20-39); IRON 31 ug/dL (50-175)
[2019-08-30 20:00] VITALS: BP 123/50
[2019-08-30 22:50] LABS: HEMATOCRIT 24.5 % (42.0-52.0); HEMOGLOBIN 7.8 gm/dL (14.0-18.0)
[2019-08-31] VITALS: BP 128/50
[2019-08-31 04:00] VITALS: BP 153/63
[2019-08-31 07:03] LABS: HEMATOCRIT 24.2 % (42.0-52.0); HEMOGLOBIN 7.8 gm/dL (14.0-18.0); MCH 24.3 pg (26.0-34.0); MCHC 32.1 g/dL (28.0-37.0); MCV 75.9 fL (80.0-100.0); MPV 6.8 fl. (7.2-11.1); RBC 3.19 mil/uL (4.50-6.00); WBC 4.3 thou/uL (4.0-11.0)
[2019-08-31 07:08] LABS: CALCIUM 8.8 mg/dL (8.5-10.1); CREATININE 1.6 mg/dL (0.6-1.3); POTASSIUM 4.7 mmol/L (3.5-5.1)
[2019-08-31 07:36] LABS: CHOLESTEROL 108 mg/dL (<200); HDL CHOLESTEROL 32 mg/dL (>40); LDL CHOLESTEROL 61 mg/dL (<100); TC:HDL 3.4 Ratio (Not establshd); TRIGLYCERIDE 78 mg/dL (<150); TROPONIN-I LEVEL 0.09 ng/mL (<0.06); VLDL 16 mg/dL (<40)
[2019-08-31 07:37] LABS: SERUM ASSESSMENT Clear
--- NOTE | 2019-08-31 10:05 | NUR ---
Nutrition: Pt admitted with COPD. COVID test pending. Consult received for wt loss. Per Coh[employer], pt usually weighs 286-316#, fluctuating. Today's wt is recorded as 276#. Very highly variable wts. H/o COPD, OBE, afib, GERD. Albumin 2.4, prealb 14.2 - moderately to severely low. Physician indicated moderate PCM - defer. Pt is on regular diet. Unable to speak with pt today for further wt loss hx. Will follow po intake, wt, labs. Mild risk for now. F/u 09/05/19.
[2019-08-31 11:42] VITALS: BP 145/86
[2019-08-31 16:01] VITALS: BP 133/48
--- NOTE | 2019-08-31 16:02 | NUR ---
WOUND NURSE: PATIENT SEEN TO ADDRESS SKIN LESIONS ON BILATERAL BUTTOCKS AND COCCYX. EACH MEASURE 0.5 X 1.0 X 0.1 CM; PRESENT WITH PARTIAL THICKNESS TISSUE LOSS, CONTAIN SMALL AMOUNT OF SEROUSANGUINOUS DRAINAGE. CLEANSED EACH WITH SOAP AND WATER, RINSED, PATTED DRY. APPLIED MARATHON LIQUID SKIN PROTECTANT, THEN LET DRY. THIS WAS TOLERATED WELL BY THE PATIENT. PATIENT INSTRUCTED ON NEED FOR OFFLOADING AND FREQENT REPOSITIONING, BUT IS NOT VERY RECEPTIVE. REINFORCEMENT OF INSTRUCTION PROVIDED WILL BE NECESSARY.
--- NOTE | 2019-08-31 16:11 | NUR ---
SW called pt room but pt did not answer. SW called pt to complete initial assessment, introduce self, and SW role. Pt lives at home with and dtr support. Pt has Trilogy, oxygen, RW, cane, wc. Pt explained that pt does not really use cane anymore but now uses RW inside and wc in the community. Pt has hx of HH with [facility]. SW to continue to follow to assist with safe dc planning.
--- NOTE | 2019-08-31 17:25 | NUR ---
PT AND EDUCATED ON NECTAR THICK LIQUID DIET. CONSULT LEFT FOR CM TO GET SPEECH VITAL STIM THERAPY FOR HH UPON DC
--- NOTE | 2019-08-31 17:54 | NUR ---
PT RESTING IN CHAIR THROUGHOUT SHIFT. PT REPORTS PAIN CONTROLLED WITH HOME MEDS. PT UP IN ROOM TO BR AND SHOWER TODAY WITH SB ASSIST.REMAINS ON O2@3L NC. SPEECH EVAL THIS EVENING-NECTAR THICK DIET RECCOMMENDED. HOURLY ROUNDING DONE WHEN PT NEEDS ASSIST OR MEDS TO MINIMIZE STAFF EXPOSURE TO TO COVID AND CONSERVE PPE. NSR ON MONITOR
[2019-08-31 21:50] VITALS: BP 126/55
[2019-09-01] VITALS: BP 115/42
[2019-09-01 04:00] VITALS: BP 127/44
--- NOTE | 2019-09-01 05:48 | NUR ---
PATIENT REPORTING PAIN 9/10 IN BACK. WAS IN CHAIR ALL NIGHT AND ABLE TO SLEEP. TOOK ALL MEDS SCHEDULED. AWAITING COVID TEST RESULTS
[2019-09-01 06:10] LABS: HEMATOCRIT 23.9 % (42.0-52.0); HEMOGLOBIN 7.5 gm/dL (14.0-18.0); MCHC 31.4 g/dL (28.0-37.0); MCV 76.3 fL (80.0-100.0); MPV 6.7 fl. (7.2-11.1); RBC 3.13 mil/uL (4.50-6.00); RDW-CV 18.3 % (10.5-14.5); WBC 5.3 thou/uL (4.0-11.0)
[2019-09-01 06:17] LABS: CALCIUM 8.5 mg/dL (8.5-10.1); CREATININE 1.5 mg/dL (0.6-1.3); MAGNESIUM 1.9 mg/dL (1.8-2.4); POTASSIUM 4.8 mmol/L (3.5-5.1)
[2019-09-01 09:10] VITALS: BP 121/46
--- NOTE | 2019-09-01 11:42 | NUR ---
SW received consult that pt will need ST with vital stim. Pt has hx with [facility] (now [facility] ) who has this capability to provide services. DC service planner to fax initial referral in case pt is ready to dc over the weekend or at least in preparation for whenever pt is ready to dc. Then final orders and med list to be faxed to [facility] fax [phone]
[2019-09-01 16:19] VITALS: BP 132/48
--- NOTE | 2019-09-01 17:24 | NUR ---
FAXED REFERRAL TO [facility] WITH NOTATION OF POSSIBLE DISCHARGE THIS WEEKEND. WILL FOLLOW UP ON 09/04/19 THAT THEY RECEIVED. [facility] [phone]; [phone]
--- NOTE | 2019-09-01 18:53 | NUR ---
PATIENT PLEASANT AND COOPERATIVE THRU SHIFT. IV SITE NOTED WNL. PATIENT C/O CHRONIC BACK PAIN. SEE MAR. PATIENT STAYS IN RECLINER ALL THE TIME, STATES THAT HE SLEEPS IN RECLINER WELL. O2 3L/NC. SKIN NOTED VERY DRY, SKIN LOTIONED WITH REMEDY PHYTOPLEX SKIN CREAM. PATIENT STATES HE IS UNABLE TO REACH HIS FEET TO DO IT HIMSELF. PATIENT INSTRUCTED TO REPOSITION SELF FREQUENTLY, NOTED OPEN PRESSURE AREAS TO BILAT BUTTOCK AND COCCYX AREAS. CALL LIGHT IN REACH. ISO PRECAUTIONS MAINTAINED. ~TJRN
[2019-09-01 19:25] VITALS: BP 151/46
[2019-09-02] VITALS (8 sets, daily range): BP systolic 110–148; BP diastolic 39–89
--- NOTE | 2019-09-02 05:28 | NUR ---
ASSUMED CARE OF PT AT 1900. PT IS ALERT AND ORIENTED. VSS. PERRLA. PT REPORTS ONGOING PAIN IN HIS BACK. PT RECIEVING OXYCODONE FOR PAIN. PT IS IN SINUS RYTHM ON THE TELEMETRY. PT IS RESTING COMFORTABLY IN HIS CHAIR. RESPIRATIONS ARE EVEN AND NONLABORED. WILL CONTINUE TO MONITOR PT.
[2019-09-02 05:31] LABS: ABSOLUTE LYMPHOCYTES 1.3 thou/uL (0.8-5.3); ABSOLUTE MONOCYTES 0.5 thou/uL (0.0-1.2); BASOPHILS 0.3 %; EOSINOPHILS 0.1 %; HEMATOCRIT 23.5 % (42.0-52.0); HEMOGLOBIN 7.3 gm/dL (14.0-18.0); LYMPHOCYTES 22.4 %; MCH 24.2 pg (26.0-34.0); MCHC 31.2 g/dL (28.0-37.0); MCV 77.4 fL (80.0-100.0); MONOCYTES 9.2 %; MPV 7.1 fl. (7.2-11.1); NUCLEATED RBCS 0 /100WBC; PLATELET COUNT* 270 thou/uL (150-400); RBC 3.04 mil/uL (4.50-6.00); RDW-CV 18.3 % (10.5-14.5); WBC 5.9 thou/uL (4.0-11.0)
[2019-09-02 05:46] LABS: ALBUMIN 2.3 g/dL (3.4-5.0); CALCIUM 7.9 mg/dL (8.5-10.1); CREATININE 1.5 mg/dL (0.6-1.3); TOTAL BILIRUBIN 0.3 mg/dL (<0.1-1.0); TOTAL PROTEIN 8.3 g/dL (6.4-8.2)
--- NOTE | 2019-09-02 16:21 | NUR ---
REMAINS A&OX4. RESPIRATIONS EVEN AND UNLABORED ON O2 AT 3L VIA NASAL CANNULA. DENIES PAIN. MEDICATED WITH PRN PAIN MEDS PER MD ORDER. CONTINUES ON AWNING MAKER AND INSTALLER SB W/ 1ST DEGREE AV BLOCK AT 57. UP WITH SBA AND ROLLING WALKER. INT IN RAC. H&H 7.3/23.5. PRBC TO BE GIVEN. TRANSFERRED TO . NSG WILL CONTINUE TO ASSESS.
--- NOTE | 2019-09-02 18:54 | NUR ---
PT ARRIVED TO ROOM 233 AT APPROX 1615, ORIENTED TO ROOM AND STAFF. PT BROUGHT BY RECLINER, WANTS TO REMAIN THERE. ORDERS FOR BLOOD RECEIVED, STARTED 1 UNIT PER PROTOCOL. PT TOLERATING WELL. VSS, SB ON THE MONITOR. ASSISTED PT WITH DINNER, PT C/O NAUSEA AND PAIN, MEDS GIVEN PER MAR. PT REFUSES NECTAR THICK LIQUID, DID TAKE SEVRERAL PILLS WITH THIN WATER, NO COUGH OR ADVERSE ISSUES NOTED. PT USES URINAL, USES CALL LIGHT APPROPRIALTY.
[2019-09-03 04:00] VITALS: BP 139/42
--- NOTE | 2019-09-03 06:50 | NUR ---
Alert and oriented x 4. He had one unit blood going at start of the shift. He did well with that. IV was saline locked after that unit. He had scheduled MS contin and had been on continous pulse ox b/c of the blood transfusion and he began setting the pulse ox off and also he is on the heart monitor and it alarmed b/c of that he requested PRN oxycodone about 1 hour and a half after scheduled MS contin. He wears a trilogy at nighttime and he was very asleep when he was alarming with a heartrate of 32-39 per minute. He states that his heartrate goes down into the 20's at home. I did tell him that we would not be giving the MS contin and PRN oxycodone so close together. He does say that he is having a lot of pain 8-10 out of 10. He has slept well.
[2019-09-03 07:01] LABS: ABSOLUTE LYMPHOCYTES 1.1 thou/uL (0.8-5.3); ABSOLUTE MONOCYTES 0.5 thou/uL (0.0-1.2); ABSOLUTE NEUTROPHILS 3.3 thou/uL (1.6-8.1); BASOPHILS 0.2 %; EOSINOPHILS 0.2 %; HEMATOCRIT 25.3 % (42.0-52.0); LYMPHOCYTES 22.4 %; MCH 24.6 pg (26.0-34.0); MCHC 31.5 g/dL (28.0-37.0); MONOCYTES 9.7 %; MPV 6.9 fl. (7.2-11.1); NUCLEATED RBCS 0 /100WBC; PLATELET COUNT* 244 thou/uL (150-400); POLYS 67.5 %; RBC 3.25 mil/uL (4.50-6.00); RDW-CV 18.3 % (10.5-14.5); WBC 4.9 thou/uL (4.0-11.0)
[2019-09-03 07:04] LABS: POTASSIUM 4.7 mmol/L (3.5-5.1)
[2019-09-03 07:22] LABS: ALBUMIN 2.5 g/dL (3.4-5.0); CALCIUM 8.2 mg/dL (8.5-10.1); CREATININE 1.4 mg/dL (0.6-1.3); TOTAL BILIRUBIN 0.2 mg/dL (<0.1-1.0); TOTAL PROTEIN 7.6 g/dL (6.4-8.2)
[2019-09-03 08:00] VITALS: BP 153/56
[2019-09-03 13:00] VITALS: BP 123/81
[2019-09-03 13:07] LABS: ADENOVIRUS Negative (Negative); INFLUENZA A Negative (Negative); INFLUENZA B Negative (Negative); METAPNEUMOVIRUS Negative (Negative); PARAINFLUENZA 1 Negative (Negative); PARAINFLUENZA 2 Negative (Negative); PARAINFLUENZA 3 Negative (Negative); RHINOVIRUS Negative (Negative); RSV A Negative (Negative); RSV B Negative (Negative)
[2019-09-03 16:30] VITALS: BP 118/45
[2019-09-03 18:19] LABS: CALCIUM 8.3 mg/dL (8.5-10.1); CREATININE 1.6 mg/dL (0.6-1.3); POTASSIUM 4.6 mmol/L (3.5-5.1)
--- NOTE | 2019-09-03 19:31 | NUR ---
PT VSS, SB ON TELE, NC@3.5L AND TRILOGY WITH 3L OVERNIGHT, CHRONIC BACK PAIN, SLEEPS IN CHAIR AT BEDSIDE, HOURLY ROUNDING PERFORMED, POSSESSIONS AND CALL LIGHT WITHIN REACH, NPO AT MIDNIGHT. STAND BY ASSIST WITH WALKER
[2019-09-03 20:00] VITALS: BP 136/43
[2019-09-04] VITALS (7 sets, daily range): BP systolic 104–145; BP diastolic 43–52
[2019-09-04 04:54] LABS: ABSOLUTE EOSINOPHILS 0.1 thou/uL (0.0-0.7); ABSOLUTE LYMPHOCYTES 1.4 thou/uL (0.8-5.3); ABSOLUTE MONOCYTES 0.5 thou/uL (0.0-1.2); ABSOLUTE NEUTROPHILS 2.6 thou/uL (1.6-8.1); EOSINOPHILS 2.8 %; HEMATOCRIT 25.9 % (42.0-52.0); HEMOGLOBIN 8.2 gm/dL (14.0-18.0); LYMPHOCYTES 30.3 %; MCH 24.6 pg (26.0-34.0); MCHC 31.7 g/dL (28.0-37.0); MCV 77.6 fL (80.0-100.0); MONOCYTES 9.8 %; MPV 6.3 fl. (7.2-11.1); NUCLEATED RBCS 0 /100WBC; PLATELET COUNT* 227 thou/uL (150-400); POLYS 56.1 %; RBC 3.33 mil/uL (4.50-6.00); RDW-CV 18.5 % (10.5-14.5); WBC 4.7 thou/uL (4.0-11.0)
[2019-09-04 05:18] LABS: PREALBUMIN 19.6 mg/dL (18.0-35.7)
[2019-09-04 05:38] LABS: ALBUMIN 2.3 g/dL (3.4-5.0); CALCIUM 8.1 mg/dL (8.5-10.1); CREATININE 1.5 mg/dL (0.6-1.3); POTASSIUM 4.6 mmol/L (3.5-5.1); TOTAL BILIRUBIN 0.4 mg/dL (<0.1-1.0); TOTAL PROTEIN 7.8 g/dL (6.4-8.2)
--- NOTE | 2019-09-04 06:19 | NUR ---
Alert and oriented x 4. He has been up in the chair. He has a waffle cushion and he shifts his weight somewhat when in the chair, he hasn't been up from the the chair. His vitals have been stable. He has been sinus negrito on the monitor all of this shift. I did hold his metoprolol last evening, Dr Hurley had told days that he might have amiodorone toxicity. He di have his scheduled MS contin at 1999 last evening and he had PRN oxycodone 10 mg at 2225 and 0252. He is on 3L o2 and trilogy at night with 3L bled in. Patient is voiding per urinal. This am his IV in the rt antecubital is not flushing, IV lasix was not able to be given. He has slept well.
[2019-09-04 06:53] LABS: ESR (SEDRATE) 120 mm/hr (0-20)
--- NOTE | 2019-09-04 07:01 | NUR ---
20 G started in his rt forearm, IV saline locked.
--- NOTE | 2019-09-04 08:01 | NUR ---
Pt's home o2 is through [facility]
--- NOTE | 2019-09-04 08:58 | NUR ---
CM spoke with SONIA, Pt refusing to go to [facility], plan home with [facility] [place]. p:[phone] f:[phone]
[2019-09-04 09:21] LABS: PROTIME 12.9 Seconds (9.20-11.50)
[2019-09-04 09:28] LABS: INR 1.3
--- NOTE | 2019-09-04 09:40 | EKG ---
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 <ELECTRONICALLY SIGNED> By: Lang Benítez MD, [facility] 09/04/19 0938 3 0854 Lagn Benítez MD, [facility] /EPI
--- NOTE | 2019-09-04 16:26 | CON ---
[address] [address] CONSULTATION Name: ABHISHEKDOMINIQUEBRENDAN FOY Room: [place] [address] ADM IN M.R.#: [id number] Admission: 08/30/19 Attend Phys: Salvador Hernandez MD Discharge: Date of : 48 Report #: [id number] THIS REPORT FOR: //name// cc: Erasmo Barlow Russell J. DO ~ THIS REPORT FOR: //name// CC: Salvador Barlow DO INDICATION: Chest discomfort and elevated troponin. HISTORY OF PRESENT ILLNESS: The patient is a very pleasant 69-year-old gentleman who is well known to myself. He has a history of paroxysmal atrial fibrillation for which he is chronically anticoagulated. He has a history of chronic diastolic heart failure for which he takes diuretics at home. He presented to the Emergency Room with complaints of increasing fatigue, shortness of breath and chest discomfort. He also reports feeling a sensation that was acute and abrupt in his left upper chest, almost similar to his DC cardioversion a few months ago. Of note, he is in sinus rhythm during this hospitalization thus far. He is found to be anemic with a low MCV, suggesting iron deficiency anemia. He denies any overt bleeding. His INR has been therapeutic. He is on chronic amiodarone therapy for his arrhythmia. He is presently in sinus rhythm. The patient describes a brief episode of chest discomfort without radiation or diaphoresis. His troponins are minimally elevated on this admission. He has rather significant underlying lung disease with a large right pleural effusion as well as possible collapse of the right middle and lower lobes. This has been an ongoing problem. He has diagnosis of COPD as well. PAST MEDICAL HISTORY: 1. Paroxysmal atrial fibrillation. 2. Hypertension. 3. Diastolic heart failure. 4. Morbid obesity. 5. Right pleural effusion. PAST SURGICAL HISTORY: Brain surgery as a child, stomach stapling as an adult, appendectomy remotely, cholecystectomy remotely. ALLERGIES: [place] [address] CONSULTATION Name: DOMINIQUE WEISS Room: [address] IN ..#: [id number] Admission: 08/30/19 Attend Phys: Salvador Hernandez MD Discharge: Date of : 48 Report #: [id number] HOME MEDICATIONS: Tylenol Extra Strength every 4 hours p.r.n., amiodarone 200 mg daily, Lipitor 80 mg at bedtime, Pulmicort 0.5 mg inhalation b.i.d., artificial tears b.i.d., iron sulfate 325 mg daily, finasteride 5 mg daily, furosemide 40 mg daily, gabapentin 400 mg t.i.d., probiotic 1 capsule daily, Xopenex inhaler every 6 hours, metoprolol succinate 50 mg b.i.d., MS Contin 15 mg b.i.d., omeprazole 20 mg b.i.d., oxycodone IR 5 mg every 4 hours p.r.n., potassium chloride 10 mEq b.i.d., trazodone 100 mg half a tablet at bedtime, warfarin 3 mg tablets Wednesday, , Wednesday and 5 mg Wednesday, Wednesday, Wednesday, Wednesday. SOCIAL HISTORY: The patient is retired. He does not smoke. He does not drink alcohol. He quit smoking in 1993. FAMILY HISTORY: The patient's father had coronary artery bypass grafting. PHYSICAL EXAMINATION: VITAL SIGNS: Blood pressure 145/86, pulse 70 and regular. GENERAL: This is a pleasant gentleman, somewhat pale in appearance, but in no distress. Mood and affect appropriate. HEENT: Head is normocephalic, atraumatic. Extraocular muscles intact. Mucous membranes appear dry. NECK: Shows no jugular venous distention. I do not appreciate bruit. CHEST: Reveals breath sounds to be absent in the right base. CARDIOVASCULAR: Reveals a regular rhythm with normal S1 and S2. I do not appreciate gallop or murmur. ABDOMEN: Reveals normal bowel sounds. The abdomen is soft, nontender. EXTREMITIES: Shows trace pedal and ankle edema. SKIN: Dry. RADIOLOGICAL DATA: Chest x-ray shows loss of volume in the right lower lobe with pleural effusion. LABORATORY DATA: Reviewed. Sodium 138, potassium 4.7, chloride 99, bicarbonate 33, BUN 34, creatinine 1.6, serum glucose 153. LFTs essentially within normal limits. Troponin is 0.16 and 0.09 sequentially. NT-proBNP 7056. Hemoglobin 7.8, hematocrit 24.2, MCV 75.9, platelet count 256,000, white blood cell count 4.3. IMPRESSION AND RECOMMENDATIONS: 1. Paroxysmal atrial fibrillation. The patient is maintaining sinus rhythm on amiodarone currently. His warfarin has been held as he appears to have iron deficiency anemia and this is being evaluated. Rate and rhythm well controlled on amiodarone at this time. In the long-term, he should be anticoagulated if we can assure no significant bleeding problems. 2. Chronic diastolic heart failure, relatively well compensated. I have [address] [place] [place] [address] CONSULTATION Name: DOMINIQUE WEISS Room: [address] IN [facility]#: [id number] Admission: 08/30/19 Attend Phys: Salvador Hernandez MD Discharge: Date of : 48 Report #: [id number] switched him back to daily dosing of his furosemide. We will continue IV for now. He does not appear grossly volume overloaded at this time. 3. Hypertension. Blood pressure adequately controlled on current regimen. 4. Right pleural effusion with loss of volume. Consider pleurocentesis. 5. Possible right lower lobe pneumonia. The patient on appropriate antibiotic coverage at this time. Being ruled out for COVID-19 infection. 6. Iron deficiency anemia, etiology not clear at this point in time. He does report some bleeding from his stomach back in 1997 with similar presentation. He reports having cauterization at that time with resolution of his anemia. We will give iron infusion. The patient has been transfused. Hemoglobin now about 7. 7. Elevated troponin, likely due to cardiac strain. I do not see any symptoms to suggest acute coronary syndrome. EKG does not show acute ST abnormalities. <ELECTRONICALLY SIGNED> By: Porfirio Colbert MD, FACC 09/04/19 1626 1546 [id number] Colbert MD, FACC /nt
--- NOTE | 2019-09-04 18:42 | NUR ---
VSS, SR ON TELE, NC@3.5L- TRILOGY@3L HS, UP WITH ONE AND WALKER, PIVOTS TO COMMODE, DAY ONE OF BOWEL PREP, CLEAR HONEY THICK LIQUID DIET, HOURLY ROUNDING PERFORMED, POSSESSIONS AND CALL LIGHT WITHIN REACH, CHRONIC BACK PAIN.
[2019-09-05 04:00] VITALS: BP 123/49
[2019-09-05 04:06] LABS: ABSOLUTE EOSINOPHILS 0.1 thou/uL (0.0-0.7); ABSOLUTE LYMPHOCYTES 1.3 thou/uL (0.8-5.3); ABSOLUTE MONOCYTES 0.5 thou/uL (0.0-1.2); ABSOLUTE NEUTROPHILS 3.5 thou/uL (1.6-8.1); BASOPHILS 0.8 %; EOSINOPHILS 2.4 %; HEMATOCRIT 28.4 % (42.0-52.0); MCH 24.7 pg (26.0-34.0); MCHC 31.6 g/dL (28.0-37.0); MCV 78.3 fL (80.0-100.0); MONOCYTES 9.3 %; MPV 5.9 fl. (7.2-11.1); NUCLEATED RBCS 0 /100WBC; PLATELET COUNT* 241 thou/uL (150-400); POLYS 64.5 %; RBC 3.62 mil/uL (4.50-6.00); RDW-CV 18.1 % (10.5-14.5); WBC 5.5 thou/uL (4.0-11.0)
[2019-09-05 04:36] LABS: ALBUMIN 2.4 g/dL (3.4-5.0); CALCIUM 8.6 mg/dL (8.5-10.1); CREATININE 1.2 mg/dL (0.6-1.3); TOTAL BILIRUBIN 0.4 mg/dL (<0.1-1.0); TOTAL PROTEIN 7.9 g/dL (6.4-8.2)
--- NOTE | 2019-09-05 05:33 | NUR ---
PATIENT HAVING SMALL BOWEL MOVEMENTS AT THIS TIME CONTINUING BOWEL PREP. LOOSE AND WATERY AT THIS TIME. PIVOT TO COMMODE. ON 3.5L NC. USES TRILOGY AT NIGHT. SLEPT IN CHAIR ALL NIGHT. REPORTS PAIN 01/24 RECEIVED 10MG OF OXYCODONE AT 0500 FOR PAIN. ALERT AND ORIENTED X4. TOOK ALL MEDS SCHEDULED. TOLERATING CLEAR LIQUID DIET WITHOUT ANY REPORTS OF NAUSEA. BARRIER CREAM APPLIED TO BUTTOCKS THIS AM. WILL CONTINUE TO FOLLOW PLAN OF ARE.
[2019-09-05 07:30] VITALS: BP 146/56
[2019-09-05 11:30] VITALS: BP 128/50
--- NOTE | 2019-09-05 11:48 | NUR ---
Nutrition: follow up note. Pt tolerating CLD. No nausea. Albumin 2.4, prealbumin 19.3. EGD done. Colonoscopy in 2 days. Will be on CLD, and hopefully be able to advance to Low Fiber after scopes completed. Wt is stable, 276#. No nutrition interventions needed at this time. Will follow up again after colonoscopy done, 09/07/19.
--- NOTE | 2019-09-05 14:21 | NUR ---
Pt to have colonoscopy tomorrow. Plan continues to be for Pt to return home at [place]n with [facility]
[2019-09-05 16:00] VITALS: BP 160/64
--- NOTE | 2019-09-05 16:15 | NUR ---
PATIENT UP TO BSC WITH ASSISTANCE TO VOID AND LOOSE BM'S NOTED. IV ABX GIVEN THIS AM ORDERED. VITALS STABLE. ENGINEER FIRST ASSISTANT REMAINS IN PLACE. PATIENT STARTED ON MIRALAX PREP FOR COLONOSCOPY TOMORROW. PRN OXYCODONE GIVEN FOR BACK PAIN X 2 ORDERED. BARRIER CREAM APPLIED TO BUTTOCKS WOUNDS, WAFFLE CUSHION IN PLACE. PATIENT REFUSES ANY POSITION EXCEPT FOR RECLINER.
[2019-09-05 20:00] VITALS: BP 132/56
[2019-09-05 23:34] VITALS: BP 132/59
[2019-09-06 04:36] VITALS: BP 128/54
--- NOTE | 2019-09-06 05:09 | NUR ---
PATIENT HAS REMAINED ALERT AND ORIENTED X 4 THROUGHOUT THE SHIFT AND RESTING AT INTERVALS ON HOURLY ROUNDS. BOWEL PREP IN PROGRESS AND PATIENT UP TO BSC WITH CGA MULTIPLE TIMES OVERNIGHT. STOOL WATERY YELLOW WITH SOME SEDIMENT AND TRANSLUCENT THIS AM. HEMORRHOIDS HAVE BEEN AGGRIVATED WITH STOOLS. MOISTURE BARRIER CREAM TO THESE AND OTHER OPEN AREAS COCCYX AND BUTTOCKS. VITAL SIGNS STABLE/AFEBRILE. PATIENT HAS DECLINED TO GO TO BED AND SLEEPS IN THE RECLINER WITH PRESSURE CUSHION. MEDICATED FOR CHRONIC BACK PAIN X 4 WITH PRN OXY-IR 10 MG AND SCHEDULED MS CONTIN. TO BE NPO AT 0800. CONTINUE TO MONITOR.
[2019-09-06 05:59] LABS: ABSOLUTE EOSINOPHILS 0.1 thou/uL (0.0-0.7); ABSOLUTE LYMPHOCYTES 1.1 thou/uL (0.8-5.3); ABSOLUTE MONOCYTES 0.5 thou/uL (0.0-1.2); ABSOLUTE NEUTROPHILS 4.1 thou/uL (1.6-8.1); BASOPHILS 0.6 %; EOSINOPHILS 2.1 %; HEMATOCRIT 30.2 % (42.0-52.0); HEMOGLOBIN 9.7 gm/dL (14.0-18.0); LYMPHOCYTES 19.4 %; MCHC 32.1 g/dL (28.0-37.0); MCV 77.8 fL (80.0-100.0); MPV 6.2 fl. (7.2-11.1); NUCLEATED RBCS 0 /100WBC; PLATELET COUNT* 235 thou/uL (150-400); POLYS 69.9 %; RBC 3.88 mil/uL (4.50-6.00); RDW-CV 18.1 % (10.5-14.5); WBC 5.9 thou/uL (4.0-11.0)
[2019-09-06 06:04] LABS: CALCIUM 8.6 mg/dL (8.5-10.1); CREATININE 1.2 mg/dL (0.6-1.3)
[2019-09-06 08:00] VITALS: BP 107/53; BP 124/43
[2019-09-06 12:00] VITALS: BP 150/57
--- NOTE | 2019-09-06 14:22 | NUR ---
Pt to have colonoscopy today. Plan continues to be for Pt to [facility].
[2019-09-06 16:00] VITALS: BP 134/41
--- NOTE | 2019-09-06 16:42 | NUR ---
PATINET RESTING IN CHAIR IN ROOM. VSS. PATIENT UNDERWENT COLONOSCOPY TODAY WITH POLYP REMOVAL. UP WITH STANDBY ASSISTANCE TO BSC AND TO CHAIR. POSSIBLE DISCHARGE TP HOME TOMORROW. HOURLY ROUNDING COMPLETED FOR PATINET SAFETY.
[2019-09-06 20:00] VITALS: BP 128/50
[2019-09-07 00:37] VITALS: BP 118/42
[2019-09-07 04:00] VITALS: BP 152/56
--- NOTE | 2019-09-07 05:00 | NUR ---
PATIENT PROGRESSING TOWARDS GOALS: PATIENT REMAINS ON 3.5L O2 PER NC, WHICH IS PATIENT'S BASELINE OXYGEN DELIVERY. PATIENT'S PAIN PARTIALLY MANAGED WITH MEDICATION PER EMAR. ENCOURAGED PATIENT TO REPOSITION Q2H BUT PATIENT REFUSING. PATIENT REMAINED IN RECLINER FOR DURATION OF SHIFT DESPITE EDUCATION ON SKIN INTEGRITY AND PRESSURE WOUNDS. CALL LIGHT WITHIN REACH
[2019-09-07 08:00] VITALS: BP 149/63
[2019-09-07 09:56] VITALS: BP 149/63
--- NOTE | 2019-09-07 12:07 | PATH ---
[address] [address] PATHOLOGY RPT PROCEDURE Name: STEVENSON BOLIVAR Room: [address] IN ..#: [id number] Admission: 08/30/19 Date of : 48 Discharge: Report #: [id number] Path Case #: [id number] [facility] Accession Number: [id number] . 01 Material submitted: . colon - PROXIMAL TRANSVERSE COLON POLYP. Modifiers: proximal, transverse . 02 Diagnosis: Proximal transverse colon polyp: - Tubular adenoma, negative for high-grade dysplasia. (NORMA:cindi; 09/07/2019) R 09/07/2019 1059 Local . 02 Electronically signed: . Cleve [place] MD, Pathologist NPI- [id number] . 01 Gross description: . The specimen is received in formalin, labeled "Stevenson Bolivar, proximal transverse colon polyp" and consists of 2 fragments of pink-nichoals tissue measuring 0.4 x 0.2 x 0.1 cm and 0.8 x 0.3 x 0.2 cm which are entirely submitted in A1. (SDY; 09/06/2019) SYU/SYU 09/06/2019 1629 Local . 02 Pathologist provided ICD-10: D12.3 . 02 CPT . 232415 Specimen Comment: A courtesy copy of this report has been sent to [phone], [phone] Specimen Comment: [phone], Specimen Comment: Report sent to ,DR FIELDS / DR FIERRO Performed at: [address], [place] [id number] MD Erasmo Chavez MD Phone: [phone] Performed at: 02 [facility] [address], [place], [place] [id number] MD Cleve Powell MD Phone: [phone]
[2019-09-07] MEDS ORDERED: KEFLEX500 M1 PO (12:20)
[2019-09-07] MEDS ORDERED: FLOMAX0.4 MG PO (12:20)
[2019-09-07] MEDS ORDERED: VALIUM5 MG PO (12:29)
--- NOTE | 2019-09-07 12:50 | NUR ---
ASSUMED PT CARE AT 0800, AOX4, UP WITH ASSIST, O2 SAT 90'S 3.5L NC. TRACING SR PVC ON TELE. PT COMPLAINS OF GENERALIZED PAIN. MEDS GIVEN WITH MILD RELIEF. VSS, AM ASSESSMENT CHARTED. HOURLY ROUNDING, CALL LIGHT WITHIN REACH, WILL CONTINUE TO MONITOR.
[2019-09-07] MEDS ORDERED: ASA81BEC PO (14:28)
[2019-09-07] MEDS ORDERED: MUCUS ER600 MG PO (14:43)
--- NOTE | 2019-09-07 15:09 | NUR ---
Pt discharging to home today. Faxed HH orders to [facility] and updated DIL of dc today.
--- NOTE | 2019-09-07 16:44 | CON ---
[address] [address] CONSULTATION Name: DOMINIQUE WEISS Room: [address] IN M.R.#: [id number] Admission: 08/30/19 Attend Phys: Salvador Hernandez MD Discharge: Date of : 48 Report #: [id number] THIS REPORT FOR: //name// cc: Erasmo Barlow Russell J. DO ~ THIS REPORT FOR: //name// CC: Salvador Barlow DO DATE OF SERVICE: 09/03/2019 REFERRING PHYSICIAN: Salvador Hernandez MD REASON FOR CONSULTATION: Anemia -- evaluate for GI blood loss. IMPRESSION: 1. Anemia of chronic disease, which has progressively worsened over the last year (low iron saturation, but high ferritin) -- evaluate for gastrointestinal blood loss. 2. Pneumonia with underlying oxygen dependent chronic obstructive pulmonary disease, which is improving. 3. Chronic and recurrent right pleural effusion. 4. Chronic atrial fibrillation, previously placed on Coumadin for the same. 5. History of remote Pérez shunt back in the early s for morbid obesity. 6. Chronic constipation. RECOMMENDATIONS: 1. It seems reasonable for the patient to undergo an endoscopic evaluation of his upper GI tract to begin with. If that should be negative, he would need a 2-day bowel preparation for colonoscopy to be done 2 days later. 2. We will hold oral iron supplementation at this time. 3. We will continue to hold anticoagulation for his chronic AFib. I have discussed the plans with the patient as well and he is agreeable to the same. HISTORY OF PRESENT ILLNESS: The patient is a pleasant 69-year-old white male with multitude of medical problems, who has had problems with persistent anemia of uncertain etiology. This has progressively gotten worse over the last year or so. He denies any complaints of any dysphagia, odynophagia, postprandial pain. He has tendency towards constipation. He has not noted really any black stools or tarry stools. He has a history of remote ulcers back in the s, at which time he had an endoscopic evaluation. His last endoscopic evaluation of her over 10 years ago. He does not take any nonsteroidals whatsoever, [place] [address] CONSULTATION Name: DOMINIQUE WEISS Room: [address]#: [id number] Admission: 08/30/19 Attend Phys: Salvador Hernandez MD Discharge: Date of : 48 Report #: [id number] chronic Coumadin for his chronic atrial fibrillation. He has no known family history of any colon polyps or colon cancer. He is currently hospitalized at this time because of issues related to pneumonia and anemia. This is all improving. ALLERGIES: None. MEDICATIONS: At home include Tylenol, amiodarone, Pulmicort, iron, Lipitor, finasteride, furosemide, gabapentin, probiotic, Xopenex, metoprolol, MS Contin, omeprazole, oxycodone, trazodone, potassium, and warfarin. PAST MEDICAL AND SURGICAL HISTORY: Remarkable for paroxysmal atrial fibrillation, history of diastolic heart failure, hypertension, morbid obesity, right pleural effusion, COPD which is oxygen dependent, chronic pain syndrome. He has had a previous appendectomy, cholecystectomy. He has had a Pérez shunt surgery x 2. He had spinal fusion. He has had chronic hypoxic respiratory failure. SOCIAL HISTORY: The patient is a former smoker, does not drink alcohol. FAMILY HISTORY: Negative. PHYSICAL EXAMINATION: GENERAL: Pleasant 69-year-old white male who is awake and alert. He is currently wearing oxygen. He appears pale. CARDIOPULMONARY: Revealed a regular rate and rhythm, with diminished breath sounds in the right base. ABDOMEN: Soft and obese. No rebound or guarding noted. LABORATORY DATA: Revealed a hemoglobin of 7.8 with low MCV, normal platelets and white count. Liver function tests are normal. His BUN and creatinine are 34 and 1.6 respectively. DISCUSSION: At the present time, the patient appears to be an acceptable candidate to undergo endoscopic evaluation of upper GI tract. We will proceed with upper endoscopy tomorrow and make further recommendations thereafter. <ELECTRONICALLY SIGNED> By: Stefan Hernandez DO 09/07/19 1644 0821 0901Stefan Hernandez DO /nt
== END 2019-09-07 16:30 | disposition home health service (06) | DRG 871 ==
LOC: M.ERS 11:39 → M.ORTHSURG 13:43 → M.TBA-ER 13:43 → M.ORTHSURG 14:53 → M.2W 09-02 16:09
PROVIDERS: Family Medicine; Internal Medicine; Internal Medicine Gastroenterology; ADMIT Internal Medicine
PROC: 30233N1 Transfusion of Nonautologous Red Blood Cells into Peripheral Vein, Percutaneous Approach (ICD-10-PCS; principal; 2019-08-30)
PROC: 5A09357 Assistance with Respiratory Ventilation, Less than 24 Consecutive Hours, Continuous Positive Airway Pressure (ICD-10-PCS; 2019-09-04)
PROC: 0DJ08ZZ Inspection of Upper Intestinal Tract, Via Natural or Artificial Opening Endoscopic (ICD-10-PCS; 2019-09-04)
PROC: 5A09357 Assistance with Respiratory Ventilation, Less than 24 Consecutive Hours, Continuous Positive Airway Pressure (ICD-10-PCS; 2019-09-05)
PROC: 0DBL8ZZ Excision of Transverse Colon, Via Natural or Artificial Opening Endoscopic (ICD-10-PCS; 2019-09-06)
PROC: 5A09357 Assistance with Respiratory Ventilation, Less than 24 Consecutive Hours, Continuous Positive Airway Pressure (ICD-10-PCS; 2019-09-07)
DX: A41.9 Sepsis, unspecified organism (principal); J96.21 Acute and chronic respiratory failure with hypoxia; J96.22 Acute and chronic respiratory failure with hypercapnia; J15.8 Pneumonia due to other specified bacteria; I50.32 Chronic diastolic (congestive) heart failure; I13.0 Hypertensive heart and chronic kidney disease with heart failure and stage 1 through stage 4 chronic kidney disease, or unspecified chronic kidney disease; D68.59 Other primary thrombophilia; J44.1 Chronic obstructive pulmonary disease with (acute) exacerbation; I48.20 Chronic atrial fibrillation, unspecified; E44.0 Moderate protein-calorie malnutrition; F11.20 Opioid dependence, uncomplicated; J44.0 Chronic obstructive pulmonary disease with (acute) lower respiratory infection; Z90.49 Acquired absence of other specified parts of digestive tract; G89.29 Other chronic pain; N18.3 Chronic kidney disease, stage 3 (moderate); G62.9 Polyneuropathy, unspecified; R65.20 Severe sepsis without septic shock; I48.0 Paroxysmal atrial fibrillation; E66.01 Morbid (severe) obesity due to excess calories; D63.8 Anemia in other chronic diseases classified elsewhere; K59.09 Other constipation; T17.990A Other foreign object in respiratory tract, part unspecified in causing asphyxiation, initial encounter; D50.0 Iron deficiency anemia secondary to blood loss (chronic); K21.9 Gastro-esophageal reflux disease without esophagitis; Z20.828 Contact with and (suspected) exposure to other viral communicable diseases; D12.3 Benign neoplasm of transverse colon; R00.1 Bradycardia, unspecified; T44.7X5A Adverse effect of beta-adrenoreceptor antagonists, initial encounter; K64.9 Unspecified hemorrhoids; Y92.89 Other specified places as the place of occurrence of the external cause; Z79.899 Other long term (current) drug therapy; Z79.01 Long term (current) use of anticoagulants; Z68.38 Body mass index [BMI] 38.0-38.9, adult; Z87.891 Personal history of nicotine dependence; Z99.81 Dependence on supplemental oxygen

== ENCOUNTER → 2019-12-01 | Outpatient (CLI) | payer MEDICARE ==
[~2019-12-01] MED LIST changes: +ACIDOPHILUS1 EAC4 PO; +ASA81BEC PO; +JANTOVEN3 MG PO; +KEFLEX500 M1 PO; +MORPHINE SULFAT15 MG PO; +MUCUS ER600 MG PO; +VALIUM5 MG PO
[2019-12-01 16:05] LABS: ALBUMIN 2.6 g/dL (3.4-5.0); DIRECT BILIRUBIN 0.1 mg/dL (<0.1-0.3); TOTAL BILIRUBIN 0.3 mg/dL (<0.1-1.0); TOTAL PROTEIN 8.6 g/dL (6.4-8.2)
== END ==
LOC: M.RAD 14:57
PROVIDERS: ATTEND Internal Medicine Cardiovascular Disease
DX: J90 Pleural effusion, not elsewhere classified (principal); J98.11 Atelectasis; Z79.899 Other long term (current) drug therapy

== ENCOUNTER 2020-02-01 10:03 | Inpatient (IN) | payer MEDICARE ==
[~2020-02-01] VITALS: Ht 177.8 cm; Wt 118.4 kg
--- NOTE | ~2020-02-01 | CON ---
[address] [address] CONSULTATION Name: DOMINIQUE WEISS Room: [address] IN M.R.#: [id number] Admission: 02/01/20 Attend Phys: Cullen Lucas, Discharge: Date of : 48 Report #: [id number] THIS REPORT FOR: //name// cc: Erasmo Barlow Russell J. DO ~ THIS REPORT FOR: //name// CC: Erasmo Lucas DATE OF SERVICE: 02/04/2020 REASON FOR CONSULTATION: Anemia. HISTORY OF PRESENT ILLNESS: This is a 69-year-old male with history of COPD, who was admitted to hospital after he suffered a fall. He is complaining of knee and ankle pain. He also has a sacral pressure ulcer. The patient found to be anemic with hemoglobin of 8. He has COPD and is usually on 3 liters of O2 at home. He is extremely short of air and unable to talk much during my visit. He reports that he can get a respiratory treatment. The patient denies any hematochezia or melena. He is on warfarin daily. PAST MEDICAL HISTORY: Significant for history of COPD, morbid obesity, CHF, AFib with RVR, anemia, pneumonia, renal failure, sepsis, iron deficiency, esophagitis, dyslipidemia, chronic pain medication use, and benign prostatic hypertrophy. ALLERGIES: No known drug allergy. MEDICATIONS: Please refer to MAR. SOCIAL HISTORY: The patient denies alcohol or drug use. He also denies use of tobacco. FAMILY HISTORY: Negative for GI malignancy. PHYSICAL EXAMINATION: VITAL SIGNS: Reveals blood pressure of 117/37, respirations 17, pulse 104, temperature 36.8. LUNGS: Decreased breath sounds at the bases. CARDIOVASCULAR: Tachycardic, but regular. ABDOMEN: Soft, nontender, nondistended. NEUROLOGIC: The patient is alert, oriented x 3. LABORATORY DATA: Reveal WBC of 4.7, hemoglobin 7.3, and platelet is 198. INR is 2.4. Sodium is 137, potassium 4.5, BUN is 21, creatinine 1.1, [place] [address] CONSULTATION Name: DOMINIQUE WEISS Room: [address] IN [facility]#: [id number] Admission: 02/01/20 Attend Phys: Cullen Lucas, Discharge: Date of : 48 Report #: [id number] 122, total bilirubin 0.4, AST is 33, ALT is 22, alkaline phosphatase is 86. IMAGING: Chest x-ray was obtained, which showed increased left basilar opacities. ASSESSMENT AND PLAN: The patient with anemia, who is on warfarin and has INR of 2.4, who is extremely short of breath. I will recommend get a pulse ox and adjust oxygen based on need. He will benefit from endoscopic evaluation starting with EGD once his respiratory status is in baseline and his INR is less than 1.4. We will continue monitoring his H and H and transfuse if his hemoglobin drops below 7.5, By: 1322 [id number] Xochitl Jones MD /nt
[~2020-02-01 10:03] MED LIST changes: -ACIDOPHILUS1 EAC4 PO; -JANTOVEN3 MG PO; -MORPHINE SULFAT15 MG PO
[2020-02-01 10:10] VITALS: BP 131/66
[2020-02-01 10:19] LABS: URINE BILIRUBIN NEGATIVE (Negative); URINE BLOOD 1+ (Negative); URINE CLARITY CLEAR; URINE COLOR YELLOW; URINE GLUCOSE-RANDOM NEGATIVE (Negative); URINE KETONES NEGATIVE (Negative); URINE LEUKOCYTES-REFLEX NEGATIVE (Negative); URINE NITRITE-REFLEX NEGATIVE (Negative); URINE PROTEIN NEGATIVE (Negative); URINE SPECIFIC GRAVITY 1.015 (1.005-1.030)
[2020-02-01 10:30] LABS: BACTERIA-REFLEX 1-9 Few /HPF (None Seen); CASTS None Seen /LPF (None Seen); CRYSTALS None Seen /LPF (None Seen); MUCUS None Seen strn/LPF (None Seen); SQUAMOUS 0-3 Few /LPF (0-3); URINE RBC 0-2 Rare /HPF (0-2); URINE WBC-REFLEX 0-5 Rare /HPF (0-5)
[2020-02-01 10:33] LABS: HEMATOCRIT 27.6 % (42.0-52.0); HEMOGLOBIN 8.8 gm/dL (14.0-18.0); MCH 24.2 pg (26.0-34.0); MCHC 31.7 g/dL (28.0-37.0); MCV 76.5 fL (80.0-100.0); MPV 6.5 fl. (7.2-11.1); NUCLEATED RBCS 0 /100WBC; PLATELET COUNT* 234 thou/uL (150-400); RBC 3.61 mil/uL (4.50-6.00); RDW-CV 18.2 % (10.5-14.5)
[2020-02-01 10:41] LABS: CALCIUM 8.5 mg/dL (8.5-10.1); CREATININE 1.4 mg/dL (0.6-1.3); POTASSIUM 4.8 mmol/L (3.5-5.1)
[2020-02-01 10:42] LABS: APTT 37.2 Seconds (25.0-31.3); INR 3.2; PROTIME 31.9 Seconds (9.20-11.50)
[2020-02-01 10:52] LABS: ALBUMIN 2.4 g/dL (3.4-5.0); TOTAL BILIRUBIN 0.4 mg/dL (<0.1-1.0); TOTAL PROTEIN 8.7 g/dL (6.4-8.2)
[2020-02-01] MEDS ORDERED: FLOMAX0.4 MG PO (11:00)
[2020-02-01] MEDS ORDERED: PACERONE 200 M200 M1 PO (11:14)
[2020-02-01 11:53] LABS: ABSOLUTE EOSINOPHILS 0.2 thou/uL (0.0-0.7); ABSOLUTE LYMPHOCYTES 1.9 thou/uL (0.8-5.3); ABSOLUTE MONOCYTES 0.6 thou/uL (0.0-1.2); ABSOLUTE NEUTROPHILS 5.3 thou/uL (1.6-8.1); PLATELET ESTIMATE ADEQUATE
--- NOTE | 2020-02-01 15:42 | EKG ---
[place] [address] ELECTROCARDIOGRAM REPORT Name: DOMINIQUE WEISS Room: [place] [address] ADM IN .R.#: [id number] Admission: 02/01/20 Attend Phys: Cullen Alejo Discharge: Date of : 48 Date of Service: 02/01/20 1020 Report #: [id number] THIS REPORT FOR: //name// [facility] ED Test Date: 2020-02-01 Test Time: 10:20:21 Pat Name: DOMINIQUE WEISS Department: Room: [facility] Gender: M Hand Twister: : 1950 Requested By: Rashaad Wadsworth Order Number: [id number] MD: Porfirio Colbert Measurements Intervals [place] Rate: 122 P: 197 MD: 116 QRS: -18 QRSD: 109 T: 89 QT: 341 QTc: 486 Interpretive Statements Atrial fibrillation Borderline left axis deviation Low voltage, precordial leads Borderline repolarization abnormality Compared to ECG 09/03/2019 08:54:04 Sinus bradycardia no longer present First degree AV block no longer present T-wave abnormality no longer present Electronically Signed On 02-01-2020 15:42:21 CDT by Porfirio Colbert [email or web address] <ELECTRONICALLY SIGNED> By: Porfirio Colbert MD, FACC 02/01/20 1542 1020 1020 Porfirio Colbert MD, [facility] /EPI
[2020-02-01 16:30] VITALS: BP 134/59
[2020-02-01 17:22] VITALS: BP 104/52
[2020-02-01 19:50] VITALS: BP 119/56
[2020-02-01] MEDS ORDERED: MORPHINE SULFAT15 MG PO (22:54)
[2020-02-01] MEDS ORDERED: JANTOVEN3 MG PO (22:55)
[2020-02-02] VITALS: BP 118/45
[2020-02-02 04:43] VITALS: BP 111/58
--- NOTE | 2020-02-02 05:26 | NUR ---
REPORT RECIEVED FROM DAY SHIFT. PT ORIENTED TO ROOM, CALL LIGHT SHOWN, FALL AGREEMENT WENT OVER, PT STATED UNDERSTANDING. IV PATENT, FLUIDS INFUSING. ADMISSION DOCUMENTED. PT UNABLE TO VERIFY HOME MEDICATIONS, PT STATES HIS FAMILY DOES NOT KNOW HIS MEDS EITHER BECAUSE HE IS THE ONE WHO "DEALS WITH THEM". PT ASKING FOR PO MORPHINE, IV FENTANYL, AND TRAZADONE. DR NOTIFIED. PT WORE HOME TRILOGY WHILE SLEEPING.
[2020-02-02 07:12] LABS: HEMATOCRIT 23.3 % (42.0-52.0); HEMOGLOBIN 7.4 gm/dL (14.0-18.0); MCH 24.4 pg (26.0-34.0); MCHC 31.7 g/dL (28.0-37.0); MCV 76.9 fL (80.0-100.0); MPV 6.8 fl. (7.2-11.1); RBC 3.03 mil/uL (4.50-6.00); RDW-CV 18.2 % (10.5-14.5); WBC 5.1 thou/uL (4.0-11.0)
[2020-02-02 07:19] LABS: CREATININE 1.3 mg/dL (0.6-1.3); MAGNESIUM 1.7 mg/dL (1.8-2.4); POTASSIUM 4.3 mmol/L (3.5-5.1); TOTAL BILIRUBIN 0.3 mg/dL (<0.1-1.0); TOTAL PROTEIN 7.8 g/dL (6.4-8.2)
[2020-02-02 07:21] LABS: PROTIME 38.7 Seconds (9.20-11.50)
[2020-02-02 08:00] VITALS: BP 120/55
[2020-02-02 12:00] VITALS: BP 124/57
[2020-02-02 13:43] LABS: CALCIUM 8.6 mg/dL (8.5-10.1); CREATININE 1.2 mg/dL (0.6-1.3); MAGNESIUM 1.8 mg/dL (1.8-2.4); POTASSIUM 4.4 mmol/L (3.5-5.1)
--- NOTE | 2020-02-02 14:00 | NUR ---
Pt extremely tired, requested that CM speak with his DIL. Pt resides at home with his and dtr. Per DIL, Pt has had 3 falls over the past week, has had increased weakness. Pt has 2 canes, walker and wc for mobility. Pt wears home o2 and has a trilogy. Hx of [facility]. Per dtr, recommending either acute rehab or home with palliative care and HH. Rehab consult placed. Pulm consulted. PT/OT evals. Following.
--- NOTE | 2020-02-02 14:12 | NUR ---
WOUND NURSE: PATIENT SEEN TO ADDRESS THE FOLLOWING WOUNDS: LEFT SACRUM MEASURES 5.0 X 3.0 X 0.2 CM, CONTAINS PINK GRANULATION TISSUE IN THE WOUND BED AND MODERATE AMOUNT OF SEROUSANGUINOUS DRAINAGE. RIGHT SACRUM MEASURES 2.5 X 0.8 X 0.2 CM, MODERATE AMOUNT OF SEROUSANGUINOUS DRAINAGE; RED GRANULATION TISSUE IN THE WOUND BED. LEFT ISCHIUM MEASURES 1.0 X 2.0 X 0.1 CM; SCANT SEROUS DRAINAGE; PARTIAL THICKNESS TISSUE LOSS. ALL PRESENT HEALING STAGE 3 PRESSURE INJURIES. PATIENT REPORTS THESE WOUNDS ARE AROUND A MONTH OLD. PATIENT INSTRUCTED ON NUTRIOTIONAL REQUIREMENT AND OFFLOADING TO PROMOTE HEALING. PATIENT STATES HE UNDERSTANDS.
--- NOTE | 2020-02-02 17:27 | NUR ---
I have reviewed the documentation by CLARI LOVE from 02/02/20 to 02/02/20 and I concur with it. PASCALE MADDEN
[2020-02-02 18:55] VITALS: BP 106/50
[2020-02-02 19:30] VITALS: BP 117/79
--- NOTE | 2020-02-02 20:27 | CON ---
[address] [address] CONSULTATION Name: ABHISHEKDOMINIQUEBRENDAN FOY Room: [address] IN M.R.#: [id number] Admission: 02/01/20 Attend Phys: Cullen Lucas, Discharge: Date of : 48 Report #: [id number] THIS REPORT FOR: //name// cc: Erasmo Barlow Russell J. DO ~ THIS REPORT FOR: //name// CC: Erasmo Lucas DATE OF SERVICE: 02/02/2020 CONSULT REQUESTING BY: Cullen Lucas MD. INDICATION FOR CONSULTATION: Pulmonary infiltrates. HISTORY OF PRESENT ILLNESS: This is a 69-year-old gentleman with past medical history includes a history of COPD. 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 There is also chronic right-sided pleural effusion. The patient does take narcotics correction. He is also anticoagulated correction. There has been previous suspicion of aspiration, last video swallow shows penetration only. The patient has previously been recommended thickened liquids, which he has declined. The patient is now admitted after a fall. The patient does not describe unresponsiveness or dizziness associated with this fall. He does, however, state that he is more short of breath over the last several days and has also been coughing more yellow sputum than his baseline. He does not have chest pain. He does have clear nasal discharge, but that is at baseline. He has not had fever or chills recently. There is no increase in swelling of lower extremities. There is no calf pain. He has had disturbed sleep at night as well as sleepiness during the day, these complaints are at baseline. He has had longstanding pain complaints including pain in the lower back. The patient does report that he coughs after eating or drinking liquids. He does report that there has been recent changes in appetite with reduction as well as increase in appetite at times. Overall, he, however, appears to be remaining overweight. He does report of malaise and weakness as well and does report muscle weakness and stiffness. REVIEW OF SYSTEMS: For 14 points is negative except as described above. PAST MEDICAL HISTORY: COPD, obesity hypoventilation syndrome, although I do not see it documented, appears likely that he has had obstructive sleep apnea in the past as well. He is on Trelegy as well as oxygen correction. He follows with Dr. Dorman. Chronic right-sided pleural effusion. On the previous tap, protein was 2.9. I do not have comparison with serum protein, however, [place] [address] CONSULTATION Name: DOMINIQUE WEISS Room: [address] IN M.R.#: [id number] Admission: 02/01/20 Attend Phys: Cullen Lucas, Discharge: Date of : 48 Report #: [id number] transudate by protein criteria, however, his LDH was elevated to 209 in the fluid and it is 212 in serum at around the same time, which will make an exudate by protein criteria. Chronic aspiration as above, penetration only on the last video swallow. 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 Congestive heart failure with diastolic dysfunction. The last echo in fact shows a normal left ventricular ejection fraction and the pulmonary artery systolic pressure likely is not significantly elevated as tricuspid valve is normal. His baseline creatinine is 1.0. [facility] use of narcotics due to back pain, morbid obesity, diabetes, peripheral neuropathy, small-bowel obstruction. Spine surgery, meningitis as a child, hypertension, Pérez's shunt, femur surgery. SOCIAL HISTORY: There is a history of smoking, is reported to have now discontinued, unable to quantify exactly at this time, does have a history of prescribed narcotic use as above. No known history of illegal drug use or heavy alcohol use. FAMILY HISTORY: Mother has breast cancer. CURRENT MEDICATIONS: List in [facility] reviewed. HOME MEDICATIONS: List in [facility] reviewed, also as described above. PHYSICAL EXAMINATION: GENERAL: He is alert, awake and oriented, does not appear to be in any distress at this time. VITAL SIGNS: He has a pulse of 88 and a blood pressure of 124/57. He is saturating 97%. He is on 4 liters oxygen via nasal cannula. Respiratory rate is 16. He is with a temperature of 37.0, T-max was 37.7. HEENT: Head is normocephalic and atraumatic. There is no throat erythema. He has a narrow airway around Mallampati 3. NECK: Does not show raised JVP, asymmetry, mass or lymph nodes. CHEST: Decreased expansion on the right side on inspection and palpation. On auscultation, breath sounds are decreased to absent at the right lung base. I do not hear any added sounds. HEART: Irregular, but there is no murmur. ABDOMEN: Soft and nontender. EXTREMITIES: Lower extremities do show trace to 1+ edema. There is no calf tenderness. SKIN: Scaly, but dry and intact. NEUROLOGICAL: He did move all extremities bilaterally equally and spontaneously with no focal deficit identified. LABORATORY DATA: The patient's chest x-ray from yesterday is reviewed and compared with the patient's previous chest x-rays. In summary, there is chronic [place] [address] CONSULTATION Name: DOMINIQUE WEISS Room: [address] IN M.R.#: [id number] Admission: 02/01/20 Attend Phys: Cullen Lucas, Discharge: Date of : 48 Report #: [id number] pleural effusion on the right side. There are infiltrates on the right side as well. These do appear to be more prominent compared with the patient's previous x-rays and CT. The patient's lab work including CBC as well as chemistries in [facility] reviewed from this morning as well as yesterday's. The repeat BMP now is pending. INR was 4.0. Urinalysis in [facility] reviewed. COVID-19 screen was negative. ASSESSMENT AND PLAN: 1. Right lung pulmonary infiltrates/aspiration pneumonia. The patient's history is consistent with chronic aspiration. I requested speech to evaluate and perform a video swallow if there is any abnormality noted on the bedside swallow. The patient has previously declined use of thickened liquids. He however does sit up when he eats. We will await results of the swallow evaluation as well as repeat a chest x-ray and then decide regarding antibiotics. Could switch to Zosyn to add anaerobic coverage and then later if the patient's condition improves, switch him over to oral Augmentin. I decided not to give him methicillin-resistant Staphylococcus aureus coverage for now, but we will do a nasal swab for methicillin-resistant Staphylococcus aureus. 2. Chronic right-sided pleural effusion. This has been tapped in the past. The patient I understand was considered for surgery in the past, but same was not performed due to high risk. We will only watch this for now. Follow up chest x-rays. Note that he is on anticoagulation, which will make it high risk to tap again. 3. Acute on chronic hypoxemic/hypercarbic respiratory failure. PCO2 in the last arterial blood gas from previous admission is around 55. He remains on Trilogy while asleep as well as oxygen. His oxygen needs are at baseline. 4. Chronic obstructive pulmonary disease. He does not appear to be actively bronchospastic at this time. We will therefore taper down his steroids. He is on Xopenex, which I did not change. 5. Obesity hypoventilation syndrome with suspected obstructive sleep apnea. 6. Longstanding atrial fibrillation/hypercoagulable state, on Coumadin correction. 7. History of narcotic use for pain control. 8. Fluid and electrolytes. He appears to be mildly fluid overloaded now. Creatinine was elevated compared with his baseline on admission. He is on saline. We will review his repeat labs and then see if we can discontinue IV fluids. The patient, however, does not appear to be in any respiratory distress at this time. Thanks for this consultation. <ELECTRONICALLY SIGNED> By: Wayne Haro MD 02/02/202026 1330 [id number] Haro MD /nt
[2020-02-03] VITALS (7 sets, daily range): BP systolic 109–132; BP diastolic 40–74
[2020-02-03 05:13] LABS: ABSOLUTE LYMPHOCYTES 0.9 thou/uL (0.8-5.3); ABSOLUTE MONOCYTES 0.4 thou/uL (0.0-1.2); ABSOLUTE NEUTROPHILS 5.3 thou/uL (1.6-8.1); BASOPHILS 0.2 %; EOSINOPHILS 0.3 %; LYMPHOCYTES 14.1 %; MCH 24.7 pg (26.0-34.0); MCHC 32.3 g/dL (28.0-37.0); MCV 76.2 fL (80.0-100.0); MONOCYTES 6.3 %; MPV 7.1 fl. (7.2-11.1); NUCLEATED RBCS 0 /100WBC; PLATELET COUNT* 217 thou/uL (150-400); POLYS 79.1 %; RBC 2.75 mil/uL (4.50-6.00); RDW-CV 18.2 % (10.5-14.5); WBC 6.7 thou/uL (4.0-11.0)
[2020-02-03 05:20] LABS: INR 4.5; PROTIME 43.9 Seconds (9.20-11.50)
--- NOTE | 2020-02-03 05:41 | NUR ---
PT SLEPT ON AND OFF THIS SHIFT. ASSESSMENT DOCUMENTED. MEDS GIVEN PER E-JUL. IV PATENT. PAIN MEDS GIVEN PER E-JUL. PT REPOSITIONED THROUGH NIGHT. WILL CONTINUE WITH PLAN OF CARE.
[2020-02-03 05:44] LABS: CALCIUM 8.4 mg/dL (8.5-10.1); CREATININE 1.3 mg/dL (0.6-1.3); MAGNESIUM 2.2 mg/dL (1.8-2.4); POTASSIUM 3.9 mmol/L (3.5-5.1); TOTAL BILIRUBIN 0.4 mg/dL (<0.1-1.0); TOTAL PROTEIN 7.4 g/dL (6.4-8.2)
[2020-02-03 05:51] LABS: HEMOGLOBIN 6.8 gm/dL (14.0-18.0)
[2020-02-03 16:56] LABS: HEMATOCRIT 22.9 % (42.0-52.0); HEMOGLOBIN 7.4 gm/dL (14.0-18.0)
--- NOTE | 2020-02-03 21:20 | NUR ---
PT JUST GIVEN DUONEB DUE THE LATEST ORDER, NO XOPENEX GIVEN.
[2020-02-04] VITALS: BP 104/42
[2020-02-04 04:00] VITALS: BP 130/79
[2020-02-04 04:48] LABS: HEMATOCRIT 22.8 % (42.0-52.0); HEMOGLOBIN 7.3 gm/dL (14.0-18.0); MCHC 31.9 g/dL (28.0-37.0); MCV 78.4 fL (80.0-100.0); MPV 6.7 fl. (7.2-11.1); RBC 2.91 mil/uL (4.50-6.00); WBC 4.7 thou/uL (4.0-11.0)
[2020-02-04 05:03] LABS: CALCIUM 8.5 mg/dL (8.5-10.1); CREATININE 1.1 mg/dL (0.6-1.3); MAGNESIUM 2.1 mg/dL (1.8-2.4); POTASSIUM 4.5 mmol/L (3.5-5.1)
[2020-02-04 05:34] LABS: PROTIME 24.2 Seconds (9.20-11.50)
[2020-02-04 05:42] LABS: INR 2.4
--- NOTE | 2020-02-04 06:25 | NUR ---
PT SLEPT ON AND OFF THIS SHIFT. ASSESSMENT DOCUMENTED. MEDS GIVEN PER E-JUL. IV PATENT. PAIN MEDS GIVEN PER E-JUL WITH MINIMAL RELIEF. PT REFUSED CT SCAN THIS SHIFT, STATING THAT HE NEEDED IV FENTANYL AND ATIVAN BEFORE HE WOULD AGREE TO IT. PT ALSO REFUSED NECTAR THICK LIQUIDS THIS SHIFT.
[2020-02-04 08:00] VITALS: BP 144/82
[2020-02-04 12:47] VITALS: BP 117/37
[2020-02-04 16:20] VITALS: BP 124/50
--- NOTE | 2020-02-04 19:07 | NUR ---
PT IS CURRENTLY RESTING. PULMONARY ROUNDED ON PT THIS AM. ORDERED MEDICATION TO BE GIVEN PRIOR TO CT SCAN R/T ANXIETY AND INABILITY TO LAY FLAT DUE TO BACK PAIN. PT BEGAN C/O OF SOA. PT ASSESSED,APPEARS BASELINE. O2 SAT 99%, RESPIRATIONS EQUAL AND UNLABORED. PT REQUESTED TO BE PLACED ON TRILOGY. PT PLACED ON TRILOGY AND EDUCATED ON INABILITY TO RECIEVE NARCOTICS/SEDATIVES WHILE IN RESPIRATORY DISTRESS. WHEN PT BECAME LESS ANXIOUS,MEDICATION HAD FELL OFF EMAR. HOSPITALIST REORDERED THESE MEDICATIONS TO BE GIVEN PRIOR TO CT,PRN X1. PT ADVANCED TO CL DIET.TOLERATING NECTAR THICK LIQUIDS WELL. ORDER OBTAINED FOR LOW AIR LOSS,WOUND CARE TO ADDRESS.PT ON 3L NC THAT HE WEARS.AFIB ON MONITOR. PT BEDREST AT THIS TIME AWAITING PT EVAL.AMADA
[2020-02-04 20:57] VITALS: BP 130/79; BP 136/77; BP 146/79; BP 152/80
[2020-02-05 04:00] VITALS: BP 86/54
--- NOTE | 2020-02-05 04:37 | NUR ---
RECEIVED REPORT AND ASSUMED CARE OF PATIENT AT 1900. FULL ASSESSMENT COMPLETED CHARTED. BED LOCKED AND IN LOW POSITION, PERSONAL ITEMS AND CALL LIGHT IN REACH. PT A&OX3, 3L NC/TRELEGY, AFIB ON MONITOR (HAS HX OF AFIB) , L SACRUM WOUND, R SACRUM WOUND, L ISCHIUM WOUND (PICTURES IN CHART FOR ALL THREE WOUNDS), GRANDKIDS WROTE ON HIS LEGS, PT SEVERELY CONSTIPATED.
[2020-02-05 05:03] LABS: HEMATOCRIT 24.1 % (42.0-52.0); HEMOGLOBIN 7.9 gm/dL (14.0-18.0); MCH 25.8 pg (26.0-34.0); MCHC 32.9 g/dL (28.0-37.0); MCV 78.4 fL (80.0-100.0); MPV 6.8 fl. (7.2-11.1); RBC 3.07 mil/uL (4.50-6.00); RDW-CV 18.5 % (10.5-14.5); WBC 5.1 thou/uL (4.0-11.0)
[2020-02-05 05:13] LABS: INR 1.2; PROTIME 12.2 Seconds (9.20-11.50)
[2020-02-05 05:39] LABS: CALCIUM 8.5 mg/dL (8.5-10.1); POTASSIUM 4.4 mmol/L (3.5-5.1)
--- NOTE | 2020-02-05 08:34 | NUR ---
WOUND NURSE: PATIENT HAS STAGE 3 PRESSURE INJURY AND HAS LIMITED TURNING SURFACES DUE TO IMPAIRED RESPIRATORY STATUS -- CHOOSES TO MAINTAIN SITTING POSITION DESPITE PREVIOUS INSTRUCTION ON NEED FOR SIDE TO SIDE REPOSITIONING. NURSING SUPERVISOR PATCHING CONTACTED TO ORDER LOW AIRLOSS MATTRESS TO BE DELIVERED TODAY.
[2020-02-05 12:00] VITALS: BP 127/60
--- NOTE | 2020-02-05 15:07 | NUR ---
Acute rehab is able to accept Pt for rehab, Pt stating that he wants to dc home. CM updated family, family to speak with Pt. CM following. If Pt continues to refuse rehab, plan home with HH and possible palliative care.
[2020-02-05 16:00] VITALS: BP 138/99
[2020-02-05 19:40] VITALS: BP 138/99
[2020-02-06 00:50] VITALS: BP 131/69
--- NOTE | 2020-02-06 04:17 | NUR ---
RECEIVED REPORT AND ASSUMED CARE OF PT AT 1900. FULL ASSESSMENT COMPLETED CHARTED. CALL LIGHT AND PERSONAL ITEMS IN REACH, BED LOCKED AND IN LOW POSITION. PT A&OX4, ON 3L NC, USES TRELEGY AT NIGHT AND PRN, AFIB ON MONITOR (WITH A HISTORY OF AFIB), UP WITH 1 ASSIST, GAIT BELT AND WALKER, PT HAS CHRONIC PAIN AND ACUTE PAIN.
[2020-02-06 04:20] VITALS: BP 136/78
[2020-02-06 05:08] LABS: ABSOLUTE LYMPHOCYTES 0.8 thou/uL (0.8-5.3); ABSOLUTE MONOCYTES 0.4 thou/uL (0.0-1.2); ABSOLUTE NEUTROPHILS 3.6 thou/uL (1.6-8.1); BASOPHILS 0.4 %; EOSINOPHILS 0.6 %; HEMATOCRIT 24.6 % (42.0-52.0); LYMPHOCYTES 17.1 %; MCH 25.8 pg (26.0-34.0); MCHC 32.6 g/dL (28.0-37.0); MCV 79.2 fL (80.0-100.0); MONOCYTES 8.1 %; MPV 6.7 fl. (7.2-11.1); NUCLEATED RBCS 0 /100WBC; PLATELET COUNT* 221 thou/uL (150-400); POLYS 73.8 %; RDW-CV 18.4 % (10.5-14.5); WBC 4.9 thou/uL (4.0-11.0)
[2020-02-06 06:49] LABS: ALBUMIN 2.5 g/dL (3.4-5.0); CALCIUM 8.5 mg/dL (8.5-10.1); POTASSIUM 4.5 mmol/L (3.5-5.1); TOTAL BILIRUBIN 0.9 mg/dL (<0.1-1.0); TOTAL PROTEIN 7.3 g/dL (6.4-8.2)
[2020-02-06 08:15] VITALS: BP 131/67
--- NOTE | 2020-02-06 08:47 | NUR ---
CM spoke with Pt, refusing ARU, stating "I think it will be too much for me." Pt in agreement with HH and [facility] palliative care at [place]. Updated family.
[2020-02-06 13:03] VITALS: BP 120/47
[2020-02-06 16:00] VITALS: BP 115/58
--- NOTE | 2020-02-06 19:37 | NUR ---
PT HAS REMAINED ALERT, ORIENTED AND COOPERATIVE WITH STAFF. UP TO CHAIR FOR SEVERAL HOURS. UP TO COMMODE X 1 AND ABLE TO PASS LARGE BM. VOIDS PER URINAL. MEDICATED FOR BREAKTHROUGH PAIN X 1. REQUESTED AND RECEIVED PRN ORDER FOR XANAX. RECIEVED DOSE X 1. SPEECH THERAPY WORKED WITH PATIENT THIS SHIFT. PT NEEDS SUPERVISION TO ENSURE HE IS MIXING HIS DRY THICKENER WITH WATER TO ACHIEVE PROPER CONSISTENCY. RESTING QUIETLY AT TIME OF THIS NOTE
[2020-02-06 23:53] VITALS: BP 120/60
[2020-02-07 04:00] VITALS: BP 120/73
[2020-02-07 08:00] VITALS: BP 107/57
[2020-02-07 10:10] LABS: PROTIME 10.7 Seconds (9.20-11.50)
[2020-02-07 13:28] LABS: ABSOLUTE EOSINOPHILS 0.1 thou/uL (0.0-0.7); ABSOLUTE MONOCYTES 0.4 thou/uL (0.0-1.2); ABSOLUTE NEUTROPHILS 3.7 thou/uL (1.6-8.1); BASOPHILS 0.5 %; EOSINOPHILS 1.5 %; HEMATOCRIT 26.5 % (42.0-52.0); HEMOGLOBIN 8.6 gm/dL (14.0-18.0); LYMPHOCYTES 19.8 %; MCH 25.7 pg (26.0-34.0); MCHC 32.3 g/dL (28.0-37.0); MCV 79.6 fL (80.0-100.0); MONOCYTES 8.2 %; MPV 6.9 fl. (7.2-11.1); NUCLEATED RBCS 0 /100WBC; PLATELET COUNT* 204 thou/uL (150-400); RBC 3.33 mil/uL (4.50-6.00); RDW-CV 19.1 % (10.5-14.5); WBC 5.3 thou/uL (4.0-11.0)
[2020-02-07 13:51] LABS: CALCIUM 8.6 mg/dL (8.5-10.1); MAGNESIUM 1.8 mg/dL (1.8-2.4); POTASSIUM 3.7 mmol/L (3.5-5.1)
--- NOTE | 2020-02-07 14:15 | NUR ---
Pt to have EGD today. Plan continues to be [facility] palliative care at [place].
[2020-02-07 16:00] VITALS: BP 127/58
--- NOTE | 2020-02-07 18:18 | NUR ---
PT RESTED T/O DAY. DID HAVE EGD PROCEDURE TODAY. BP STILL REMAINS BELOW NORM,BP MEDICATIONS HELD. PT HAS TOLERATED SITTING ON SIDE OF BED T/O AFTERNOON. VSS ON 4L NC. AFIB ON MONITOR. CLWR.WCTM
[2020-02-07 19:45] VITALS: BP 118/50
[2020-02-08] VITALS: BP 115/64
[2020-02-08 04:00] VITALS: BP 128/66
[2020-02-08 04:44] LABS: ABSOLUTE EOSINOPHILS 0.1 thou/uL (0.0-0.7); ABSOLUTE LYMPHOCYTES 0.6 thou/uL (0.8-5.3); ABSOLUTE MONOCYTES 0.3 thou/uL (0.0-1.2); ABSOLUTE NEUTROPHILS 4.2 thou/uL (1.6-8.1); BASOPHILS 0.4 %; HEMATOCRIT 26.2 % (42.0-52.0); HEMOGLOBIN 8.5 gm/dL (14.0-18.0); LYMPHOCYTES 12.1 %; MCH 25.6 pg (26.0-34.0); MCHC 32.2 g/dL (28.0-37.0); MCV 79.4 fL (80.0-100.0); MONOCYTES 5.9 %; MPV 6.5 fl. (7.2-11.1); NUCLEATED RBCS 0 /100WBC; PLATELET COUNT* 211 thou/uL (150-400); POLYS 80.6 %; RDW-CV 18.7 % (10.5-14.5); WBC 5.3 thou/uL (4.0-11.0)
[2020-02-08 05:07] LABS: ALBUMIN 2.5 g/dL (3.4-5.0); CALCIUM 8.4 mg/dL (8.5-10.1); CREATININE 0.9 mg/dL (0.6-1.3); MAGNESIUM 1.8 mg/dL (1.8-2.4); POTASSIUM 4.1 mmol/L (3.5-5.1); TOTAL BILIRUBIN 0.8 mg/dL (<0.1-1.0); TOTAL PROTEIN 7.6 g/dL (6.4-8.2)
[2020-02-08 05:08] LABS: % SATURATION 24 % (20-39); IRON 54 ug/dL (50-175)
--- NOTE | 2020-02-08 05:38 | NUR ---
PATIENT HAS REMAINED ALERT AND ORIENTED X 4 THROUGHOUT THE SHIFT AND RESTING QUIETLY ON HOURLY ROUNDS. PRESSURE REDUCING MATTRESS IN PLACE. PATIENT REPOSITIINING SELF. DRESSINGS TO SACRUM/BUTTOCKS INTACT. O2 ON 3L/MIN NASAL CANNULA WHEN AWAKE. HOME TRILOGY HS. IV ANTIBIOTICS PROVIDED PER ORDER. VITAL SIGNS STABLE. AFEBRILE. STATED CONSTANT GENERALIZED PAIN. MEDICATED Q4H WITH PRN OXY-IR 10 MG PO AND SCHEDULED MS CONTIN. PATIENT RATES HIS PAIN 9/10 WITH DECREASE ON TO 8/10. CONTINUE TO MONITOR.
[2020-02-08 08:01] VITALS: BP 116/60
[2020-02-08] MEDS ORDERED: XANAX 0.25 MG0.25 MG PO (10:23)
[2020-02-08] MEDS ORDERED: PREDNISONE 10 M10 MG PO (10:23)
[2020-02-08] MEDS ORDERED: ACIDOPHILUS1 EAC4 PO (10:23)
[2020-02-08 10:57] VITALS: BP 116/60
[2020-02-08 11:23] VITALS: BP 116/60
--- NOTE | 2020-02-08 12:06 | NUR ---
PT DISCHARGED WITH GOING HOME WITH HOME HEALTH NO QUESTIONS OR CONCERNS IV AND TELE MONITOR DISCONTINUED
--- NOTE | 2020-02-08 16:09 | NUR ---
Pt discharged to home today. Faxed HH orders to [facility]. Referral Sent to [facility] palliative care. Family here and will transport home.
--- NOTE | 2020-02-09 10:25 | NUR ---
I have reviewed the documentation by CLARI LOVE from 02/06/20 to 02/09/20 and I concur with it. PASCALE MADDEN
== END 2020-02-08 12:07 | disposition home health service (06) | DRG 871 ==
LOC: M.ERS 10:03 → M.TBA-ER 12:21 → M.2W 12:21
PROVIDERS: Family Medicine; Internal Medicine; Internal Medicine Critical Care Medicine; Internal Medicine Gastroenterology; ADMIT Family Medicine; ATTEND Family Medicine
PROC: 5A09357 Assistance with Respiratory Ventilation, Less than 24 Consecutive Hours, Continuous Positive Airway Pressure (ICD-10-PCS; principal; 2020-02-01)
PROC: 5A09357 Assistance with Respiratory Ventilation, Less than 24 Consecutive Hours, Continuous Positive Airway Pressure (ICD-10-PCS; 2020-02-02)
PROC: 5A09357 Assistance with Respiratory Ventilation, Less than 24 Consecutive Hours, Continuous Positive Airway Pressure (ICD-10-PCS; 2020-02-03)
PROC: 5A09357 Assistance with Respiratory Ventilation, Less than 24 Consecutive Hours, Continuous Positive Airway Pressure (ICD-10-PCS; 2020-02-04)
PROC: 5A09357 Assistance with Respiratory Ventilation, Less than 24 Consecutive Hours, Continuous Positive Airway Pressure (ICD-10-PCS; 2020-02-05)
PROC: 5A09357 Assistance with Respiratory Ventilation, Less than 24 Consecutive Hours, Continuous Positive Airway Pressure (ICD-10-PCS; 2020-02-08)
DX: A41.9 Sepsis, unspecified organism (principal); J69.0 Pneumonitis due to inhalation of food and vomit; J96.21 Acute and chronic respiratory failure with hypoxia; J96.22 Acute and chronic respiratory failure with hypercapnia; J15.6 Pneumonia due to other Gram-negative bacteria; I50.30 Unspecified diastolic (congestive) heart failure; N17.9 Acute kidney failure, unspecified; E66.2 Morbid (severe) obesity with alveolar hypoventilation; D68.59 Other primary thrombophilia; I13.0 Hypertensive heart and chronic kidney disease with heart failure and stage 1 through stage 4 chronic kidney disease, or unspecified chronic kidney disease; J91.8 Pleural effusion in other conditions classified elsewhere; J44.1 Chronic obstructive pulmonary disease with (acute) exacerbation; E44.0 Moderate protein-calorie malnutrition; D62 Acute posthemorrhagic anemia; G89.29 Other chronic pain; N18.3 Chronic kidney disease, stage 3 (moderate); G62.9 Polyneuropathy, unspecified; L89.159 Pressure ulcer of sacral region, unspecified stage; E78.5 Hyperlipidemia, unspecified; N40.0 Benign prostatic hyperplasia without lower urinary tract symptoms; R65.20 Severe sepsis without septic shock; F17.210 Nicotine dependence, cigarettes, uncomplicated; Z20.828 Contact with and (suspected) exposure to other viral communicable diseases; R13.10 Dysphagia, unspecified; E87.70 Fluid overload, unspecified; E83.42 Hypomagnesemia; D50.9 Iron deficiency anemia, unspecified; M19.91 Primary osteoarthritis, unspecified site; T17.990A Other foreign object in respiratory tract, part unspecified in causing asphyxiation, initial encounter; X58.XXXA Exposure to other specified factors, initial encounter; Y93.89 Activity, other specified; Y92.89 Other specified places as the place of occurrence of the external cause; Y99.8 Other external cause status; Z79.891 Long term (current) use of opiate analgesic; Z90.49 Acquired absence of other specified parts of digestive tract; Z68.37 Body mass index [BMI] 37.0-37.9, adult; Z80.3 Family history of malignant neoplasm of breast; Z87.11 Personal history of peptic ulcer disease

== ENCOUNTER 2020-05-24 00:05 | Emergency (ER) | payer OTHER ==
[~2020-05-24] VITALS: Ht 177.8 cm; Wt 108.9 kg
[~2020-05-24 00:05] MED LIST changes: +ACIDOPHILUS1 EAC4 PO; +JANTOVEN3 MG PO; +MORPHINE SULFAT15 MG PO
[2020-05-24 01:02] LABS: INR 1.9; PROTIME 19.3 Seconds (9.20-11.50)
[2020-05-24 02:05] VITALS: BP 131/61
== END 2020-05-24 02:05 | disposition home or self-care (01) ==
LOC: M.ERS 00:05
PROVIDERS: Emergency Medicine
DX: R04.0 Epistaxis (principal); J44.9 Chronic obstructive pulmonary disease, unspecified; I48.91 Unspecified atrial fibrillation; I13.0 Hypertensive heart and chronic kidney disease with heart failure and stage 1 through stage 4 chronic kidney disease, or unspecified chronic kidney disease; N18.30 Chronic kidney disease, stage 3 unspecified; I50.32 Chronic diastolic (congestive) heart failure; J96.11 Chronic respiratory failure with hypoxia; Z90.49 Acquired absence of other specified parts of digestive tract

== ENCOUNTER 2020-06-19 15:02 | Emergency (ER) | payer OTHER ==
[~2020-06-19] VITALS: Ht 177.8 cm; Wt 108.9 kg
[2020-06-19 15:37] LABS: ABSOLUTE EOSINOPHILS 0.1 thou/uL (0.0-0.7); ABSOLUTE MONOCYTES 0.3 thou/uL (0.0-1.2); ABSOLUTE NEUTROPHILS 3.4 thou/uL (1.6-8.1); BASOPHILS 0.5 %; EOSINOPHILS 2.1 %; HEMOGLOBIN 9.8 gm/dL (14.0-18.0); MCH 26.9 pg (26.0-34.0); MCHC 31.8 g/dL (28.0-37.0); MCV 84.5 fL (80.0-100.0); MONOCYTES 6.1 %; MPV 6.1 fl. (7.2-11.1); NUCLEATED RBCS 0 /100WBC; PLATELET COUNT* 168 thou/uL (150-400); POLYS 70.3 %; RBC 3.66 mil/uL (4.50-6.00); RDW-CV 15.3 % (10.5-14.5); WBC 4.8 thou/uL (4.0-11.0)
[2020-06-19 16:03] LABS: APTT 47.6 Seconds (25.0-31.3); INR 2.5; PROTIME 25.3 Seconds (9.20-11.50)
[2020-06-19 16:17] VITALS: BP 127/52
== END 2020-06-19 16:18 | disposition home or self-care (01) ==
LOC: M.ERS 15:02
PROVIDERS: Nurse Practitioner Family
DX: R04.0 Epistaxis (principal); J44.9 Chronic obstructive pulmonary disease, unspecified; I48.91 Unspecified atrial fibrillation; G89.29 Other chronic pain; J96.11 Chronic respiratory failure with hypoxia; I13.0 Hypertensive heart and chronic kidney disease with heart failure and stage 1 through stage 4 chronic kidney disease, or unspecified chronic kidney disease; N18.30 Chronic kidney disease, stage 3 unspecified; I50.32 Chronic diastolic (congestive) heart failure; E66.9 Obesity, unspecified; Z68.34 Body mass index [BMI] 34.0-34.9, adult; Z90.49 Acquired absence of other specified parts of digestive tract

== ENCOUNTER 2020-08-16 00:44 | Emergency (ER) | payer OTHER ==
[~2020-08-16] VITALS: Ht 177.8 cm; Wt 108.9 kg
[2020-08-16] MEDS ORDERED: WARFARIN SODIUM3 MG PO (01:01)
[2020-08-16 03:10] VITALS: BP 136/77
== END 2020-08-16 03:10 | disposition home or self-care (01) ==
LOC: M.ERS 00:44
DX: R04.0 Epistaxis (principal); I13.0 Hypertensive heart and chronic kidney disease with heart failure and stage 1 through stage 4 chronic kidney disease, or unspecified chronic kidney disease; N18.30 Chronic kidney disease, stage 3 unspecified; I50.9 Heart failure, unspecified; J44.9 Chronic obstructive pulmonary disease, unspecified; I48.91 Unspecified atrial fibrillation; E66.9 Obesity, unspecified; G89.29 Other chronic pain; J96.11 Chronic respiratory failure with hypoxia; Z68.34 Body mass index [BMI] 34.0-34.9, adult; Z90.49 Acquired absence of other specified parts of digestive tract

== ENCOUNTER 2020-08-24 13:43 | Emergency (ER) | payer OTHER ==
[~2020-08-24] VITALS: Ht 177.8 cm; Wt 108.9 kg
[~2020-08-24 13:43] MED LIST changes: +WARFARIN SODIUM3 MG PO
[2020-08-24 14:55] LABS: INR 1.7; PROTIME 17.1 Seconds (9.20-11.50)
[2020-08-24 15:45] VITALS: BP 123/69
== END 2020-08-24 15:47 | disposition home or self-care (01) ==
LOC: M.ERS 13:43
PROVIDERS: Physician Assistant
DX: R04.0 Epistaxis (principal); J44.9 Chronic obstructive pulmonary disease, unspecified; J96.11 Chronic respiratory failure with hypoxia; I13.0 Hypertensive heart and chronic kidney disease with heart failure and stage 1 through stage 4 chronic kidney disease, or unspecified chronic kidney disease; N18.30 Chronic kidney disease, stage 3 unspecified; I50.32 Chronic diastolic (congestive) heart failure; G89.29 Other chronic pain; Z90.49 Acquired absence of other specified parts of digestive tract

== ENCOUNTER → 2020-08-28 | Outpatient (CLI) | payer OTHER ==
[2020-08-28 12:00] LABS: DIRECT BILIRUBIN 0.1 mg/dL (<0.1-0.3); TOTAL BILIRUBIN 0.4 mg/dL (<0.1-1.0); TOTAL PROTEIN 8.6 g/dL (6.4-8.2)
== END ==
LOC: M.LAB 10:29
PROVIDERS: ATTEND Internal Medicine Cardiovascular Disease
DX: J90 Pleural effusion, not elsewhere classified (principal); I48.0 Paroxysmal atrial fibrillation; I50.32 Chronic diastolic (congestive) heart failure; J98.11 Atelectasis; Z79.899 Other long term (current) drug therapy

== ENCOUNTER 2021-05-07 22:51 | Inpatient (IN) | payer OTHER ==
[~2021-05-07] VITALS: Ht 182.9 cm; Wt 98.7 kg
[2021-05-07 23:00] VITALS: BP 135/72
[2021-05-07] MEDS ORDERED: TOPROL XL25 MG PO ×2 (23:10)
[2021-05-07] MEDS ORDERED: LORAZEPAM 0.50.5 MG PO (23:14)
[2021-05-07] MEDS ORDERED: WARFARIN SODIUM1 MG PO (23:14)
[2021-05-07] MEDS ORDERED: LORAZEPAM 2MG2 MG/M1 PO (23:15)
[2021-05-07] MEDS ORDERED: DULCOLAX STOOL100 M1 PO (23:17)
[2021-05-07] MEDS ORDERED: TROSPIUM CHLORI20 MG PO (23:18)
[2021-05-07 23:30] LABS: INFLUENZA A ANTIGEN Negative (Negative); INFLUENZA B ANTIGEN Negative (Negative)
[2021-05-07 23:42] LABS: ABSOLUTE EOSINOPHILS 0.1 thou/uL (0.0-0.7); ABSOLUTE MONOCYTES 0.4 thou/uL (0.0-1.2); ABSOLUTE NEUTROPHILS 3.9 thou/uL (1.6-8.1); BASOPHILS 0.8 %; EOSINOPHILS 1.1 %; HEMOGLOBIN 8.4 gm/dL (14.0-18.0); LYMPHOCYTES 17.8 %; MCH 27.9 pg (26.0-34.0); MCHC 31.2 g/dL (28.0-37.0); MCV 89.3 fL (80.0-100.0); MONOCYTES 7.2 %; MPV 7.5 fl. (7.2-11.1); NUCLEATED RBCS 0 /100WBC; PLATELET COUNT* 239 thou/uL (150-400); POLYS 73.1 %; RBC 3.03 mil/uL (4.50-6.00); WBC 5.4 thou/uL (4.0-11.0)
[2021-05-07 23:53] LABS: CALCIUM 8.9 mg/dL (8.5-10.1); CREATININE 1.6 mg/dL (0.6-1.3); POTASSIUM 4.2 mmol/L (3.5-5.1)
[2021-05-08 00:10] LABS: ALBUMIN 2.4 g/dL (3.4-5.0); MAGNESIUM 1.7 mg/dL (1.8-2.4); TOTAL BILIRUBIN 1.1 mg/dL (<0.1-1.0); TOTAL PROTEIN 8.4 g/dL (6.4-8.2)
[2021-05-08 01:43] LABS: BE 13.8 mmol/L (-2 to +3)
[2021-05-08 01:45] LABS: PCO2 90.8 mmHg (35.0-45.0)
[2021-05-08 01:46] LABS: PO2 133.2 mmHg (75.0-100.0)
[2021-05-08 04:35] LABS: URINE BLOOD NEGATIVE (Negative); URINE CLARITY CLEAR; URINE COLOR YELLOW; URINE GLUCOSE-RANDOM NEGATIVE (Negative); URINE KETONES TRACE (Negative); URINE LEUKOCYTES-REFLEX NEGATIVE (Negative); URINE NITRITE-REFLEX NEGATIVE (Negative); URINE PROTEIN NEGATIVE (Negative); URINE SPECIFIC GRAVITY 1.025 (1.005-1.030)
[2021-05-08 04:36] LABS: URINE BILIRUBIN 2+ (Negative)
[2021-05-08 04:41] LABS: ICTOTEST (BILI CONFIRMATORY) Negative (Negative)
[2021-05-08 06:54] VITALS: BP 120/52
[2021-05-08 10:00] VITALS: BP 124/61
--- NOTE | 2021-05-08 12:24 | EKG ---
[place] [address] ELECTROCARDIOGRAM REPORT Name: DOMINIQUE WEISS Room: [place] [address] ADM IN [facility]#: [id number] Admission: 05/08/21 Attend Phys: Teodoro Estrada Discharge: Date of : 48 Date of Service: 05/07/21 2304 Report #: [id number] THIS REPORT FOR: //name// [facility] ED Test Date: 2021-05-07 Test Time: 23:04:14 Pat Name: DOMINIQUE WEISS Department: Room: [facility] Gender: M Scientific Editor: NARINDER : 1950 Requested By: Janie Phan Order Number: [id number] MD: Porfirio Colbert Measurements Intervals Lynn Rate: 128 P: VT: QRS: -12 QRSD: 81 T: 125 QT: 308 QTc: 450 Interpretive Statements Atrial fibrillation Anteroseptal infarct, age indeterminate, possible Baseline artifact Compared to ECG 02/01/2020 10:20:21 Electronically Signed On 05-08-2021 12:24:17 CANDY SPREADER by Porfirio Colbert [email or web address] <ELECTRONICALLY SIGNED> By: Porfirio Colbert MD, FACC 05/08/21 1224 2304 230 Porfirio Colbetr MD, FAC /EPI
[2021-05-08 13:15] LABS: ABSOLUTE LYMPHOCYTES 0.5 thou/uL (0.8-5.3); ABSOLUTE MONOCYTES 0.3 thou/uL (0.0-1.2); BASOPHILS 0.2 %; EOSINOPHILS 0.1 %; HEMATOCRIT 25.7 % (42.0-52.0); LYMPHOCYTES 10.9 %; MCH 27.6 pg (26.0-34.0); MCV 88.9 fL (80.0-100.0); MONOCYTES 5.5 %; MPV 6.5 fl. (7.2-11.1); NUCLEATED RBCS 0 /100WBC; PLATELET COUNT* 198 thou/uL (150-400); POLYS 83.3 %; RBC 2.89 mil/uL (4.50-6.00); RDW-CV 15.6 % (10.5-14.5); WBC 4.8 thou/uL (4.0-11.0)
[2021-05-08 13:26] LABS: CALCIUM 8.4 mg/dL (8.5-10.1); CREATININE 1.3 mg/dL (0.6-1.3); POTASSIUM 3.7 mmol/L (3.5-5.1)
[2021-05-08 13:28] LABS: INR 2.7; PROTIME 26.9 Seconds (9.20-11.50)
[2021-05-08 13:30] LABS: ALBUMIN 2.2 g/dL (3.4-5.0); TOTAL BILIRUBIN 0.6 mg/dL (<0.1-1.0); TOTAL PROTEIN 7.7 g/dL (6.4-8.2)
[2021-05-08 14:00] VITALS: BP 138/77
--- NOTE | 2021-05-08 16:01 | 2DMMODE ---
[place] [address] 2 D/M-MODE ECHOCARDIOGRAM Name: ABHISHEKDOMINIQUEBRENDAN FOY Room: [place] [address] ADM IN [place]#: [id number] Admission: 05/08/21 Attend Phys: Teodoro Estrada Discharge: Date of : 48 Date of Service: 05/08/21 1601 Report #: [id number] THIS REPORT FOR: cc: Erasmo Barlow Russell J. DO [place], Michael J. MD [facility] ~ APPROVED REPORT Study performed: 05/08/2021 15:10:12 EXAM: Comprehensive 2D, Doppler, and color-flow Echocardiogram Patient Location: In-Patient Room #: ER Status: routine BSA: 2.26 HR: 108 bpm BP: 124/61 mmHg Rhythm: Atrial Fibrillation Other Information Study Quality: Good Indications Atrial Fibrillation 2D Dimensions IVSd: 10.58 (7-11mm) LVOT Diam: 21.45 (18-24mm) LVDd: 41.45 mm PWd: 10.50 (7-11mm) Ascending Ao: 31.66 (22-36mm) LVDs: 25.64 (25-40mm) Volumes Left Atrial Volume (Systole) LA ESV Index: 47.80 mL/m2 Aortic Valve AoV Peak Moises.: 2.97 m/s AO Peak Gr.: 35.38 mmHg LVOT Max P.87 mmHg AO Mean Gr.: 23.22 mmHg LVOT Mean P.05 mmHg LVOT Max V: 0.68 m/s AO V2 VTI: 53.76 cm LVOT Mean V: 0.48 m/s ROYAL (VTI): 0.90 cm2 LVOT V1 VTI: 13.32 [place] [address] 2 D/M-MODE ECHOCARDIOGRAM Name: DOMINIQUE WEISS Room: [address] IN [facility]#: [id number] Admission: 05/08/21 Attend Phys: Teodoro Estrada Discharge: Date of : 48 Date of Service: 05/08/21 1601 Report #: [id number] PV Peak Moises.: 1.08 m/s PV Peak Gr.: 4.63 mmHg Tricuspid Valve RAP Estimate: 15.00 mmHg TR Peak Gr.: 51.88 mmHg RVSP: 67.00 mmHg PA Pressure: 67.00 mmHg Left Ventricle The left ventricle is normal size. There is normal LV segmental wall motion. There is normal left ventricular wall thickness. Left ventricular systolic function is normal. LVEF is 60-65%. This study is not technically sufficient to allow evaluation of the LV diastolic function due to atrial fibrillation. Right Ventricle The right ventricle is normal size. The right ventricular systolic function is normal. Atria Left atrium is moderately dilated. Right atrium is mildly dilated. Aortic Valve The Aortic valve is sclerotic. No aortic regurgitation is present. Moderate to severe aortic stenosis. Mitral Valve The mitral valve is normal in structure. There is no mitral valve regurgitation noted. No evidence of mitral valve stenosis. Tricuspid Valve The tricuspid valve is normal in structure. Trace to mild tricuspid regurgitation. Moderate pulmonary hypertension. Pulmonic Valve The pulmonary valve is normal in structure. There is no pulmonic valvular regurgitation. Great Vessels The aortic root is normal in size. IVC is dilated and collapses <50% with inspiration. Pericardium There is no pericardial effusion. <Conclusion> [place] [address] 2 D/M-MODE ECHOCARDIOGRAM Name: DOMINIQUE WEISS Room: [address] IN .R.#: [id number] Admission: 05/08/21 Attend Phys: Teodoro Estrada Discharge: Date of : 48 Date of Service: 05/08/21 1601 Report #: [id number] The left ventricle is normal size. There is normal left ventricular wall thickness. Left ventricular systolic function is normal. LVEF is 60-65%. There is normal LV segmental wall motion. Left atrium is moderately dilated. Right atrium is mildly dilated. The Aortic valve is sclerotic. Moderate to severe aortic stenosis. Trace to mild tricuspid regurgitation. Moderate pulmonary hypertension. IVC is dilated and collapses <50% with inspiration. <ELECTRONICALLY SIGNED> By: Porfirio Colbert MD, FACC 05/08/211600 00 00 Porfirio Colbert MD, FACC /INF
[2021-05-08 18:00] VITALS: BP 133/53
[2021-05-08 20:17] VITALS: BP 146/61
[2021-05-08 21:00] VITALS: BP 145/64
[2021-05-09 01:01] VITALS: BP 105/63
[2021-05-09 05:29] VITALS: BP 145/70
[2021-05-09 08:00] VITALS: BP 154/78
[2021-05-09 08:59] LABS: ABSOLUTE LYMPHOCYTES 0.5 thou/uL (0.8-5.3); ABSOLUTE MONOCYTES 0.2 thou/uL (0.0-1.2); ABSOLUTE NEUTROPHILS 3.5 thou/uL (1.6-8.1); BASOPHILS 0.2 %; HEMATOCRIT 27.6 % (42.0-52.0); HEMOGLOBIN 8.8 gm/dL (14.0-18.0); LYMPHOCYTES 12.9 %; MCH 27.5 pg (26.0-34.0); MCHC 31.8 g/dL (28.0-37.0); MCV 86.7 fL (80.0-100.0); MONOCYTES 4.5 %; MPV 7.1 fl. (7.2-11.1); NUCLEATED RBCS 0 /100WBC; PLATELET COUNT* 262 thou/uL (150-400); POLYS 82.4 %; RBC 3.19 mil/uL (4.50-6.00); RDW-CV 15.5 % (10.5-14.5); WBC 4.3 thou/uL (4.0-11.0)
[2021-05-09 09:09] LABS: CALCIUM 8.7 mg/dL (8.5-10.1); CREATININE 1.3 mg/dL (0.6-1.3); POTASSIUM 3.5 mmol/L (3.5-5.1)
[2021-05-09 09:34] LABS: PROTIME 20.1 Seconds (9.20-11.50)
--- NOTE | 2021-05-09 10:21 | CON ---
[address] [address] CONSULTATION Name: DOMINIQUE WEISS Room: [address] IN M.R.#: [id number] Admission: 05/08/21 Attend Phys: Amy Kerr Discharge: Date of : 48 Report #: [id number] THIS REPORT FOR: cc: Erasmo Barlow,Porfirio Navarrete MD [facility] ~ cc: Erasmo Barlow DO DATE OF CONSULTATION: 05/08/2021 CARDIOLOGY CONSULT INDICATION: Atrial fibrillation with rapid ventricular response rate. HISTORY OF PRESENT ILLNESS: The patient is a very pleasant 70-year-old gentleman who is well known to myself. We had been seeing him on a fairly regular basis for paroxysmal atrial fibrillation and chronic diastolic heart failure. He has been at home on hospice care for the past year or more. He is chronically anticoagulated with warfarin for his history of paroxysmal atrial fibrillation. We have continued to monitor his INRs through the office. He presented to the Emergency Room this morning with complaints of ongoing and progressive shortness of breath over the past 5 weeks or so. He normally uses 3 liters of oxygen chronically at home, but even on this level was hypoxic and therefore brought to the hospital. He does have a history of COPD for which he is on treatments. He has diastolic heart failure as outlined above. Chest x-ray at this time suggests right pleural effusion and pneumonia. Initial rapid COVID-19 test was negative. At this time, he has moderate anorexia. He denies nausea or vomiting. He is not having fevers. He does not appear to have significant orthopnea, although he does have dyspnea on exertion and a baseline shortness of breath. He also reports an underlying chest discomfort that has been persistent. EKG shows atrial fibrillation with a rapid ventricular response rate. I do not appreciate acute ST segment abnormalities. PAST MEDICAL HISTORY: Significant for: 1. Paroxysmal atrial fibrillation. 2. Chronic diastolic heart failure. 3. Chronic obstructive pulmonary disease. 4. Chronic anticoagulation. 5. Chronic hypercoagulable state due to atrial fibrillation. 6. Anemia of chronic disease. 7. Coronary artery disease. 8. Type 2 [place] [address] CONSULTATION Name: DOMINIQUE WEISS LAW Room: [address]#: [id number] Admission: 05/08/21 Attend Phys: Amy Kerr Discharge: Date of : 48 Report #: [id number] 9. Hyperlipidemia. 10. Chronic renal insufficiency. 11. Sleep apnea. PAST SURGICAL HISTORY: 1. Leg fracture in 1998. 2. Appendectomy. 3. Cholecystectomy. 4. Stomach stapled x 2. 5. Spinal fusion. FAMILY HISTORY: Unremarkable. SOCIAL HISTORY: The patient is a lifelong nonsmoker. He does not drink alcohol. He currently is at home undergoing hospice care. HOME MEDICATIONS: Furosemide 40 mg p.o. daily, Flomax 0.4 mg p.o. daily, amiodarone 200 mg p.o. daily, morphine sulfate extended release 15 mg p.o. b.i.d., warfarin 3 mg daily, metoprolol succinate 25 mg daily, additional warfarin 1.5 mg on Wednesday, lorazepam 0.5 mg q.6 hours p.r.n., Colace 100 mg 1 capsule p.r.n., trospium chloride 20 mg p.o. b.i.d., finasteride 5 mg daily, iron sulfate 325 mg daily, omeprazole 20 mg b.i.d., probiotic 1 capsule daily, atorvastatin 80 mg at bedtime, gabapentin 400 mg t.i.d., artificial tears 1 drop each eye p.r.n., guaifenesin 1200 mg b.i.d. ALLERGIES: None documented. REVIEW OF SYSTEMS: Positive for shortness of breath, dyspnea on exertion, anorexia, chest discomfort, joint pain, otherwise unremarkable. PHYSICAL EXAMINATION: VITAL SIGNS: Blood pressure is stable, heart rate is in the 120s-130s and irregular. GENERAL: This is a pleasant elderly gentleman who does not appear to be in distress. HEENT: Head is normocephalic, atraumatic. Extraocular muscles intact. Mucous membranes appear dry. NECK: Shows no jugular venous distention. CHEST: Reveals diminished breath sounds throughout with basilar rales. CARDIAC: Reveals an irregularly irregular rhythm that is slightly tachycardic. I do not appreciate obvious gallop or murmur. ABDOMEN: Reveals normal bowel sounds. The abdomen is soft and nontender. EXTREMITIES: Shows trace ankle edema. SKIN: Dry. [address] [address] CONSULTATION Name: DOMINIQUE WEISS Room: [address] IN ..#: [id number] Admission: 05/08/21 Attend Phys: Amy Kerr Discharge: Date of : 48 Report #: [id number] DIAGNOSTIC DATA: Chest x-ray shows right pleural effusion as well as bilateral basilar infiltrates, more on the right than the left. LABORATORY DATA: Reviewed. BUN was 42, creatinine 1.3, EGFR 54. High sensitivity troponin 41. NT-proBNP 16,309. White blood cell count 4.8, hemoglobin 8.0, platelet count 198,000. Rapid COVID test negative. IMPRESSION AND RECOMMENDATIONS: 1. Atrial fibrillation with rapid ventricular response rate. Continue chronic anticoagulation with warfarin. We will start amiodarone bolus and drip in an effort to improve rate control and possibly rhythm control. We will give a bolus of digoxin as well 0.5 mg and follow later this afternoon to see if we have achieved rate control. 2. Chronic diastolic heart failure. The patient does not appear appreciably volume overloaded at this point in time. I am holding off diuretics today, repeating labs tomorrow. We will consider resuming home regimen in a.m. 3. Coronary artery disease, presently stable. He has some chronic chest discomfort that does not sound like angina. His troponins are unremarkable. We will continue conservative management. 4. Right pleural effusion, chronic. At this point in time, it does not appear to be creating significant restriction in breathing. 5. Pneumonia. The patient started on IV antibiotics. PCR for COVID is pending. 6. Dyslipidemia. Continue atorvastatin at current dose. <ELECTRONICALLY SIGNED> By: Porfirio Colbert MD, FACC 05/09/21 1021 1245 [id number] Colbert MD, FACC /nt
[2021-05-09 12:11] VITALS: BP 134/65
[2021-05-09 20:00] VITALS: BP 137/61
[2021-05-10] VITALS (7 sets, daily range): BP systolic 110–152; BP diastolic 59–90
[2021-05-10 07:33] LABS: ABSOLUTE LYMPHOCYTES 0.4 thou/uL (0.8-5.3); ABSOLUTE MONOCYTES 0.2 thou/uL (0.0-1.2); ABSOLUTE NEUTROPHILS 3.3 thou/uL (1.6-8.1); BASOPHILS 0.2 %; HEMATOCRIT 26.7 % (42.0-52.0); HEMOGLOBIN 8.5 gm/dL (14.0-18.0); LYMPHOCYTES 9.5 %; MCH 27.6 pg (26.0-34.0); MCHC 31.8 g/dL (28.0-37.0); MCV 86.7 fL (80.0-100.0); MPV 6.9 fl. (7.2-11.1); NUCLEATED RBCS 0 /100WBC; PLATELET COUNT* 228 thou/uL (150-400); POLYS 84.3 %; RBC 3.08 mil/uL (4.50-6.00); RDW-CV 15.1 % (10.5-14.5); WBC 3.9 thou/uL (4.0-11.0)
[2021-05-10 07:44] LABS: INR 2.5; PROTIME 24.4 Seconds (9.20-11.50)
[2021-05-10 07:53] LABS: ALBUMIN 2.3 g/dL (3.4-5.0); CALCIUM 8.4 mg/dL (8.5-10.1); CREATININE 1.2 mg/dL (0.6-1.3); POTASSIUM 3.4 mmol/L (3.5-5.1); TOTAL BILIRUBIN 0.6 mg/dL (<0.1-1.0); TOTAL PROTEIN 7.4 g/dL (6.4-8.2)
[2021-05-11] VITALS: BP 160/72
[2021-05-11 04:00] VITALS: BP 152/75
[2021-05-11 06:36] LABS: PROTIME 41.8 Seconds (9.20-11.50)
[2021-05-11 06:40] LABS: ALBUMIN 2.5 g/dL (3.4-5.0); ALKALINE PHOSPHATASE 63 U/L (46-116); BUN 30 mg/dL (7-18); CALCIUM 8.4 mg/dL (8.5-10.1); CHLORIDE 97 mmol/L (98-107); CREATININE 1.3 mg/dL (0.6-1.3); GLUCOSE 124 mg/dL (70-99); POTASSIUM 3.1 mmol/L (3.5-5.1); SGOT 25 U/L (15-37); SGPT 19 U/L (30-65); SODIUM 143 mmol/L (136-145); TOTAL BILIRUBIN 0.6 mg/dL (<0.1-1.0); TOTAL PROTEIN 7.6 g/dL (6.4-8.2)
[2021-05-11 06:59] LABS: CO2 46 mmol/L (21-32)
[2021-05-11 07:00] LABS: INR 4.3
[2021-05-11 07:06] LABS: ABSOLUTE LYMPHOCYTES 0.5 thou/uL (0.8-5.3); ABSOLUTE MONOCYTES 0.3 thou/uL (0.0-1.2); ABSOLUTE NEUTROPHILS 2.9 thou/uL (1.6-8.1); BASOPHILS 0.1 %; HEMATOCRIT 29.2 % (42.0-52.0); HEMOGLOBIN 9.3 gm/dL (14.0-18.0); LYMPHOCYTES 12.7 %; MCH 27.4 pg (26.0-34.0); MCHC 31.9 g/dL (28.0-37.0); MCV 85.7 fL (80.0-100.0); MONOCYTES 7.8 %; MPV 7.2 fl. (7.2-11.1); NUCLEATED RBCS 0 /100WBC; PLATELET COUNT* 223 thou/uL (150-400); POLYS 79.4 %; RDW-CV 15.5 % (10.5-14.5); WBC 3.7 thou/uL (4.0-11.0)
[2021-05-11 09:00] VITALS: BP 156/79
[2021-05-11 12:00] VITALS: BP 160/75
[2021-05-11 16:01] VITALS: BP 160/70
[2021-05-11 20:00] VITALS: BP 151/71
[2021-05-12] VITALS: BP 136/68
[2021-05-12 04:00] VITALS: BP 157/78
[2021-05-12 05:29] LABS: PROTIME 55.7 Seconds (9.20-11.50)
[2021-05-12 06:29] LABS: INR 5.8
[2021-05-12 08:00] VITALS: BP 183/80
[2021-05-12] MEDS ORDERED: DOXYCYCLINE 10100 MG PO (10:13)
[2021-05-12 12:33] VITALS: BP 163/75
[2021-05-12] MEDS ORDERED: LANOXIN 0.25M0.25 M1 PO (15:01)
== END 2021-05-12 19:00 | disposition hospice, home (50) | DRG 177 ==
LOC: M.ERS 22:51 → M.TBA-ER 05-08 02:02 → M.2W 05-08 20:30
PROVIDERS: Internal Medicine; Personal Emergency Response Attendant; ADMIT Internal Medicine; ATTEND Internal Medicine
PROC: 5A09357 Assistance with Respiratory Ventilation, Less than 24 Consecutive Hours, Continuous Positive Airway Pressure (ICD-10-PCS; principal; 2021-05-08)
PROC: 5A09357 Assistance with Respiratory Ventilation, Less than 24 Consecutive Hours, Continuous Positive Airway Pressure (ICD-10-PCS; 2021-05-09)
PROC: 5A09357 Assistance with Respiratory Ventilation, Less than 24 Consecutive Hours, Continuous Positive Airway Pressure (ICD-10-PCS; 2021-05-10)
PROC: 5A09357 Assistance with Respiratory Ventilation, Less than 24 Consecutive Hours, Continuous Positive Airway Pressure (ICD-10-PCS; 2021-05-11)
PROC: 5A09357 Assistance with Respiratory Ventilation, Less than 24 Consecutive Hours, Continuous Positive Airway Pressure (ICD-10-PCS; 2021-05-12)
DX: J69.0 Pneumonitis due to inhalation of food and vomit (principal); I50.33 Acute on chronic diastolic (congestive) heart failure; J96.22 Acute and chronic respiratory failure with hypercapnia; J96.21 Acute and chronic respiratory failure with hypoxia; I13.0 Hypertensive heart and chronic kidney disease with heart failure and stage 1 through stage 4 chronic kidney disease, or unspecified chronic kidney disease; I48.11 Longstanding persistent atrial fibrillation; F11.20 Opioid dependence, uncomplicated; J91.8 Pleural effusion in other conditions classified elsewhere; J44.9 Chronic obstructive pulmonary disease, unspecified; E66.9 Obesity, unspecified; N18.30 Chronic kidney disease, stage 3 unspecified; G89.29 Other chronic pain; I48.0 Paroxysmal atrial fibrillation; E78.5 Hyperlipidemia, unspecified; Z20.822 Contact with and (suspected) exposure to COVID-19; M47.9 Spondylosis, unspecified; D64.9 Anemia, unspecified; Z66 Do not resuscitate; Z79.899 Other long term (current) drug therapy; Z90.49 Acquired absence of other specified parts of digestive tract; Z68.29 Body mass index [BMI] 29.0-29.9, adult; Z87.891 Personal history of nicotine dependence